=== PATIENT | male | born 1950 | race Caucasian/White ===

== ENCOUNTER 2022-02-19 12:30 | Outpatient (RCR) | payer MEDICARE, SELFPAY ==
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
--- NOTE | 2022-06-27 08:43 | HP.PT.NRP ---
KALYANI MCKENZIE was seen in my office for initial evaluation on 01/31/22. The following Plan of Care was established for this patient: Initial Frequency: 2-3x /Week Initial Duration: 4-6 Weeks Patient/Client Instruction: Educate patient on: Condition, Plan of Care, Risk Factors For the Purpose of:: To improve self management Therapeutic Exercise to Include: Strength training, Balance training, Body mechanics, Postural training, Flexibilty training, Gait and locomotor training, Neuromotor development, Dynamic Lumbar Stabilization For the Purpose of:: To decrease pain, To increase ROM, To improve muscle performance and motor function, To increase tolerance to activity/condition/position, To improve ability of physical actions for home/community/work/leisure, To improve gait and locomotor functions This patient was last seen in our office 02/21/22. Pertinent comments regarding their Physical therapy will appear below: This patient recently returned inquiring about getting a scooter assessement for his PCP Dr. Diana. His last PT visit was 02/21/22 so I am going to go ahead and discharge this chart and we will open up a new chart if further orders are received. At this point I will be discontinuing this patient from physical therapy. I would be happy to see this patient again in the future if found appropriate by the physician. Thank you! Paola Saul, PT, Cert MDT Balance/Gait/Functional tests - Balance/Special Test Scores Lower Extremity Functional Score: 39 TUG Test Time Seconds: 10.25 Tug Test: <20 sec.=mostly independent 30 Second Chair Rise Test Seconds: 11
== END 2022-02-19 19:00 | disposition home or self-care (01) ==
LOC: PT 12:30
PROVIDERS: PCP Family Medicine
DX: R27.0 Ataxia, unspecified (principal)
CPT/HCPCS: 97110; 97112; 97162; 97164; 97530

== ENCOUNTER 2022-07-07 11:59 | Outpatient (RCR) | payer MEDICARE, SELFPAY ==
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
--- NOTE | 2022-07-07 14:00 | HP.PTDCSUM ---
It has been my pleasure to treat KALYANI MCKENZIE referred by Dr. Timothy Diana MD, with the diagnosis of GAIT INSTABILITY, FREQUENT FALLS AND LUMBAR SPINAL STENOSIS for a total of 1 visit(s). Discharge Date: 07/07/22 Please see the following information for a summary of their discharge status. Goal 1:: SUCCESSFUL COMPLETION OF PT EVAL Plan: EVAL ONLY If there are questions or concerns regarding this patient's physical therapy, please feel free to call me at [phone]. Thank you for the referral of this patient. Sincerely, Paola Saul, PT, Cert MDT Balance/Gait/Functional tests - Balance/Special Test Scores Lower Extremity Functional Score: 21
== END 2022-07-07 19:00 | disposition home or self-care (01) ==
LOC: PT 11:59
PROVIDERS: PCP Family Medicine; Referring Provider Family Medicine; Visit Provider Family Medicine
DX: M48.061 Spinal stenosis, lumbar region without neurogenic claudication (principal); R26.81 Unsteadiness on feet; R29.6 Repeated falls
CPT/HCPCS: 97162

== ENCOUNTER 2022-10-31 14:00 | Outpatient (RCR) | payer MEDICARE, SELFPAY ==
--- NOTE | 2022-09-02 08:34 | HP.PTEVAL_ITS ---
Patient's Visit Information KALYANI MCKENZIE is a 72 year old M referred to Physical Therapy by JESSICA JUDD with a diagnosis of B foot drop, gait instability, lumbar radiculopathy and lumbar stenosis. Date of Evaluation: 08/29/22 Physical Therapist: Yuriy Slade DPT - Visit Plan Frequency: 2x /Week Duration: 6 Weeks Plan: Start with aquatic therapy: work on core and BLE strengthening. Progress balance and gait. He will need assistance in the pool initially, but can reduce if clinician warrants. May need use of lift chair for in and out, but can use stairs if able. - Subjective Pt. is here today for his initial evaluation with diagnosis of B foot drop, gait instability, lumbar radiculopathy (chronic) and lumbar spinal stenosis. Pt. reports having some back pain for many years which he relates to having issues when he broke his back when he was younger. He had an initial lumbar surgery ~2 years ago and was doing okay. He was doing some exercises and noticed his L leg was becoming weaker. He ultimately had another surgery in December of 2021. He again was doing better initially, but started to exercise again and his leg became weak again on the L side. Pt. has some intermittent pain in legs and lumbar spine when I over do it.' Pt. uses a wheel chair for a lot of his community mobility, but can walk with a rollator in home and short distances. He was doing a self silver [employer] exercise program, but stopped when he star berto to regress. He relates his leg weakness to using the nustep machine. He is sleeping well. His biggest concern at this point in time his marked weakness in his legs which limits his ability to complete his normal activities. He is still active and trys to get out a bit, but is limited due to his LE weakness. Pt. is hopeful to regain strength in BLEs. Pt. had an EMG, but is awaiting the results. - Pain Lumbar spine Pain Intensity (Out of 10): 1 - Objective POSTURE: Pt. has flexed sitting posture, is able to improved, but difficult to maintain. Standing posture is very guarded, heavily uses FWW for stability. PALPATION: Pt. has no pain with palpation to throughout BLEs and lumbar spine. NEURO: Pt. has diminished reflexes of BLEs of Achilles and patellar tendons. Pt. has decreased sensation in BLEs throughout. HE is unable to rise on heels or toes. ROM: Pt. has decent ROM of BLEs no issues. Limited lumbar ROM in all directions. No increase in pain with lumbar ROM, bust stiffness. MMT: RLE: ankle: DF 4#, PF 31#; knee: ext 27#, flexion 22#; hip: flexion: 12#, abd 8#. LLE: ankle: DF 0#, PF 11#; knee: ext 16#, flexion 8#; hip: flexion 3#, abd 2#. Core strength: poor-. Very difficult. GAIT: Pt. is able to ambulate a few short steps without AD, but had to use his trunk to assist with advancing LEs. Pt. ambulated with FWW with better stability, but still has marked weakness in his LE. Pt. has marked audible from reduced ankle eccentric DF. STAIRS: not trialed. - Balance/Special Test Scores Lower Extremity Functional Score: 18 - Goals Goal 1:: LTG: Pt. to be I with HEP. Goal Time Frame: 4-6 Weeks Goal 2:: LTG: Pt. to have increased BLE strength by at least 10# of all effected musculature. Goal Time Frame: 4-6 Weeks Goal 3:: STG: pt. to be able to ambulate throughout house with FWW with out assistance. Goal Time Frame: 2-4 Weeks Goal 4:: LTG: Pt. to ambulate with LRD MECCA community level distance. Goal Time Frame: 4-6 Weeks - Rehabilitation Potential Physical Therapy Diagnosis: Pt. has signs and symptoms consistent with B foot drop, gait instability, lumbar radiculopathy (chronic) and lumbar spinal stenosis. Pt has marked BLE weakness with L worse than R. This has drastically impacted his ability to stand and walk. He would benefit from PT to work on his strength, balance, and gait progression in order to get back to all ADLs with decreased limitations. Rehabilitation Potential: Fair - Anticipated Interventions Patient/Client Instruction: Educate patient on: Condition, Plan of Care, Risk Factors, Benefits of Fitness Program For the Purpose of:: To foster healthy habits, To improve decision making, To facilitate caregiver knowledge, To improve self management, To prevent re- injury, To improve ability to perform tasks related to life management, To improve tolerance to ADL's Therapeutic Exercise to Include: Strength training, Power training, Endurance training, Balance training, Postural training, Gait and locomotor training, In an aquatic setting, Dynamic Lumbar Stabilization For the Purpose of:: To increase ROM, To improve nutrient delivery to tissue, To increase oxygenation perfusion, To improve muscle performance and motor function, To improve ability to perform ADL's, To increase tolerance to activity/condition/position, To improve performance and independence with ADL's, To decrease level of supervision to perform tasks, To improve health of tissue, To increase flexibility/ROM Thank you for the opportunity to evaluate your patient. For Medicare and Medicare HMO plans, please review the plan of care and approve it. It will need to be FAXED BACK to us at [phone] for Medicare purposes. For Medicare only, by signing this I certify the plan of care. Please let me know if there are questions or concerns regarding this plan of care. Physician Signature: Date:
--- NOTE | 2022-10-14 08:04 | HP.PTREVAL_ITS ---
JESSICA JUDD, It has been my pleasure to treat KALYANI MCKENZIE over the last 9 visits for B foot drop, gait instability, lumbar radiculopathy and lumbar stenosis. Please see the progress note below for an update on the physical therapy plan of care! Subjective: Pt. reprots overall seeing some improvement. He reports having increased strength in BLEs, but not a large change in his mobility. He is still having weakness in his L leg, worst with ankle DF. Pt. reports minimal pain at this point in time, but is still having marked loss in functional mobility. He is using a Wheel chair for a good portion of mobility, FWW in home. He is being referred to a neurologist for further testing. Reports not being able to get into see one until december of next year. Objective/Function: MMT: RLE: ankle: DF 13.3#, PF 55.5#; knee: ext 51.4#, flexion 26.7#; hip: flexion 12.3#. LLE: ankle DF: 0/5; PF 44.4#; knee: ext 28.1#, flexion: 19.6#; hip: flexion 7.1#. Core strength: poor. Pt. is walking a little bit better, but is still having some trouble with advancing his LLE. He requires FWW for safety and is able to ambulate 108' today with SBA for safety. He does reports walking a little bit at home. He is still able to drive. ROM: fairly normal. Tight HS bilat. Transfers: pt. is able to complete from higher surfaces I, but from normal chair hieght, he struggles with stability, requires B hand assistance. Plan Plan: I am asking for further visits in aquatic setting. He has seen some changes in strength of BLEs and shows signs of further improvement. I would like his overall strength and functional mobility. Due to limited L ankle DF strength, me may benefit from an AFO to increase safety with gait. Balance/Gait/Functional tests - Balance/Special Test Scores Lower Extremity Functional Score: 20 Goals Goal 1:: LTG: Pt. to be I with HEP. Goal Time Frame: 4-6 Weeks Goal Progress: Progressing Goal 2:: LTG: Pt. to have increased BLE strength by at least 10# of all effected musculature. Goal Time Frame: 4-6 Weeks Goal Progress: Progressing Goal 3:: STG: pt. to be able to ambulate throughout house with FWW with out assistance. Goal Time Frame: 2-4 Weeks Goal Progress: Progressing Goal 4:: LTG: Pt. to ambulate with LRD MECCA community level distance. Goal Time Frame: 4-6 Weeks Goal Progress: Progressing Anticipated Interventions Patient/Client Instruction: Educate patient on: Condition, Plan of Care, Risk Factors, Benefits of Fitness Program For the Purpose of:: To foster healthy habits, To improve decision making, To facilitate caregiver knowledge, To improve self management, To prevent re- injury, To improve ability to perform tasks related to life management, To improve tolerance to ADL's Therapeutic Exercise to Include: Strength training, Power training, Endurance training, Balance training, Postural training, Gait and locomotor training, In an aquatic setting, Dynamic Lumbar Stabilization For the Purpose of:: To increase ROM, To improve nutrient delivery to tissue, To increase oxygenation perfusion, To improve muscle performance and motor function, To improve ability to perform ADL's, To increase tolerance to activity/condition/position, To improve performance and independence with ADL's, To decrease level of supervision to perform tasks, To improve health of tissue, To increase flexibility/ROM Please do not hesitate to contact me at [phone] by phone or if you have questions or concerns regarding this new plan of care! Sincerely, Yuriy Slade DPT
== END 2022-10-31 19:00 | disposition home or self-care (01) ==
LOC: PT 14:00
PROVIDERS: PCP Family Medicine
DX: M54.16 Radiculopathy, lumbar region (principal); M48.061 Spinal stenosis, lumbar region without neurogenic claudication; M21.371 Foot drop, right foot; R29.6 Repeated falls; G95.20 Unspecified cord compression
CPT/HCPCS: 97113; 97161; 97164

== ENCOUNTER 2022-11-15 13:16 | Inpatient (IN) | payer MEDICARE, SELFPAY ==
[2022-11-15] VITALS (9 sets, daily range): BP systolic 128–154; BP diastolic 85–99; PULSE 84–92; RESP 14–22; TEMP 36.6–36.9; O2SAT 92–97; BMI 35.9; BMI 35.8
--- NOTE | 2022-11-15 13:53 | EKG12_ITS ---
Test Reason : SOB Blood Pressure : / mmHG Vent. Rate : 088 BPM Atrial Rate : 088 BPM P-R Int : 214 ms QRS Dur : 090 ms QT Int : 356 ms P-R-T Axes : 011 -15 015 degrees QTc Int : 430 ms Sinus rhythm with 1st degree A-V block Inferior infarct , age undetermined Abnormal ECG Confirmed by JAMIE GIBSON, PEDRO LUIS ([id number]), purchase request editor SHERMAN TAMAYO ([id number]) on 11/17/2022 9:39:19 AM Referred By: BAKARI Confirmed By:PEDRO LUIS AYALA MD
--- NOTE | 2022-11-15 13:53 | RAD_ITS ---
INDICATION: cough EXAMINATION/TECHNIQUE: X-RAY - XR Chest 2 Views COMPARISON: CT dated October 30, 2017 FINDINGS: LINES/DEVICES: None. LUNGS: There are bilateral patchy opacities within the mid and lower lungs, most pronounced within the right lower lung. MEDIASTINUM AND CARDIOVASCULAR STRUCTURES: There is cardiomegaly. BONES AND SOFT TISSUES: Unremarkable. RAD/Chest PA and Lateral IMPRESSION: Bilateral patchy opacities, a nonspecific finding may be secondary to some combination of atelectasis, pneumonia and/or edema, recommend short interval follow-up in 10-[address] for further evaluation for a cannot exclude an underlying neoplastic process within the right lower lung. Electronically Signed: Nilam Luna MD at 15:04 EST ,
--- NOTE | 2022-11-15 14:26 | ED.VIS.DYS ---
HPI History of Present Illness Chief Complaint: Shortness of Breath Informant: patient Narrative Narrative: Patient is 72-year-old male with history of nonischemic cardiomyopathy, hypertension, blood clots on chronic Xarelto therapy, CKD, pulmonary fibrosis, obstructive sleep apnea on CPAP and diabetes mellitus presenting for cough. Patient states he has been having cough and worsening shortness of breath for the past week. He has been congested and having rhinorrhea and cough productive of yellow-green mucus. His thought she heard crackles on his right lung base. Patient states that he uses a walker and is minimally ambulatory at baseline but now can even make it 6 feet without being very short of breath. He denies any chest pain but notes he does get a little bit of chest discomfort when he is having to breathe a lot. He is felt more weak over the past few days. Patient had some URI symptoms and fever 2 weeks ago and thought he had the flu at that time. Those symptoms had resolved. He does have a history of pneumonia but states has never been hospitalized for his breathing. His notes he does have some minimal edema of his legs today. She is not sure how long its been there. Patient is chronic diarrhea which is unchanged. Denies any black or blood in his stool. No other complaints at this time. Patient does not wear supplemental oxygen. [facility] Medical History Blood clotting factor deficiency disorder Chronic kidney disease Essential (primary) hypertension Gastric ulcer Hiatal hernia History of pulmonary embolus (PE) LV non-compaction cardiomyopathy Nonischemic cardiomyopathy Obesity Obstructive sleep apnea Pulmonary fibrosis Type 2 diabetes mellitus Home Medications furosemide 40 mg tablet (Lasix) 40 mg PO QDAY #90 tabs 11/03/18 [Rx Last Taken Unknown] telmisartan 80 mg tablet 80 mg PO DAILY 11/03/19 [History Last Taken Unknown] semaglutide 1 mg/dose (2 mg/1.5 mL) subcutaneous pen injector 2 mg subcut TU 11/30/20 [History Last Taken Unknown] amlodipine 5 mg tablet 5 mg PO DAILY #90 tabs 05/26/22 [Rx Last Taken Unknown] dapagliflozin 10 mg tablet (Farxiga) 10 mg PO DAILY 05/26/22 [History Last Taken Unknown] gabapentin 600 mg tablet 600 mg PO TID 05/26/22 [History Last Taken Unknown] insulin degludec 100 unit/mL (3 mL) subcutaneous pen (Tresiba FlexTouch U-100 insulin) 16 unit subcut QHS 05/26/22 [History Last Taken Unknown] insulin lispro 100 unit/mL subcutaneous pen (Humalog KwikPen (U-100) Insulin) 9 unit subcut TIDCM 05/26/22 [History Last Taken Unknown] metoprolol succinate 50 mg tablet,extended release 24 hr (Toprol XL) 50 mg PO DAILY #90 tabs 05/26/22 [Rx Last Taken Unknown] rivaroxaban 10 mg tablet (Xarelto) 10 mg PO DAILY 05/26/22 [History Last Taken Unknown] insulin lispro 100 unit/mL subcutaneous pen See Protocol subcut TIDCM 11/15/22 [History Last Taken Unknown] Allergy/AdvReac Type Severity Reaction Status Date / Time Penicillins Allergy Unknown unknown Verified 11/15/22 13:17 coffee (Coffea arabica) Allergy vomiting Verified 11/15/22 13:17 Family History Father , age 72 Myocardial infarction CAD (coronary artery disease) Mother , age 73 Cancer Brother , age 27 from AAA Abdominal aortic aneurysm rupture Sister , 54 Breast cancer Surgical History History of laminectomy (12/2021) History of Filemon fundoplication History of open reduction and internal fixation (ORIF) procedure History of right and left heart catheterization (09/1997) Hx of cholecystectomy Social History Smoking Status: Never smoker ROS ROS ED Constitutional Constitutional ED: Denies chills or fever(s) Eyes Eyes: Denies change in vision ENT ENT ED: Reports rhinorrhea and other Details: Nasal congestion ; Denies sore throat Cardiovascular Cardiovascular: Denies chest pain or palpitations Respiratory/Chest Respiratory/Chest: Reports cough, dyspnea and dyspnea on exertion Gastrointestinal Gastrointestinal: Reports diarrhea; Denies abdominal pain, nausea or vomiting Genitourinary Genitourinary ED: Denies dysuria Musculoskeletal Musculoskeletal: Reports back pain; Denies arthralgias or myalgias Integumentary Denies rash Neurologic Neurologic: Reports weakness; Denies headache(s) or paresthesias Hematologic/Lymphatic Hematologic/Lymphatic: Reports easy bleeding and easy bruising EXAM Physical Exam Const Vital Signs: 11/15/22 13:17 11/15/22 14:11 11/15/22 14:11 Temperature 98.2 F 98.2 F Temperature Source Temporal Oral Pulse Rate 91 92 90 Respiratory Rate 16 18 16 Respiratory Effort Blood Pressure 149/97 H 149/97 H Blood Pressure Mean 114 114 Pulse Ox 97 92 94 Oxygen Delivery Method Room Air Room Air Room Air 11/15/22 14:11 Temperature Temperature Source Pulse Rate Respiratory Rate Respiratory Effort Short of Breath Blood Pressure Blood Pressure Mean Pulse Ox Oxygen Delivery Method Room Air Positive well nourished and well developed General Appearance ED: well developed and NAD HEENT Reports moist mucous membranes HEENT Narrative: Cerumen impaction of the right ear. Normal tympanic membrane on the left. Nasal congestion present. Normal oropharynx. atraumatic Eyes PERRL and EOMs intact bilaterally Neck supple and no JVD Resp Resp Narrative: Conversational dyspnea present. Diminished breath sounds at the bases with crackles appreciated on the right side. Diminished breath sounds more pronounced on the left. Cardio regular rate, regular rhythm and no murmurs GI non-tender and non-distended Extremity Extremity Narrative: 1+ pitting edema to the ankles Neuro oriented x3 Neuro Narrative: Generally weak, no focal deficits appreciated Sensorium / Orientation: alert Psych mental status grossly normal Thought Process: normal thought process Skin no wounds Lesions: no lesions Rashes: no rashes MDM MDM MDM Narrative Medical decision making narrative: Patient evaluated for increased weakness, shortness of breath and cough productive of sputum. Symptoms were preceded by flulike illness 2 weeks ago. Patient is conversational dyspnea but is in no acute distress upon initial evaluation. He has some mild peripheral edema but clinically does not appear fluid overloaded. Have a lower suspicion for CHF exacerbation. He is on chronic anticoagulation with Xarelto does have a low suspicion for PE/venous thromboembolism as a cause of his symptoms. Patient's symptoms do not seem like they are cardiogenic in nature. EKG obtained which does not show any ischemic changes. Do not think a troponin or further cardiac evaluation indicated at this time. CBC does show mild elevation of his immature granulocytes but his white blood cell count is normal. His BMP shows some baseline elevated creatinine but is otherwise stable. His BNP again is normal at 15.1. He is mildly hyperglycemic with a glucose of 208 however his anion gap is normal. Chest x-ray 2 views interpreted by myself as well as radiology shows bilateral patchy opacities. I suspect this is secondary to multifocal pneumonia. Patient's COVID/influenza swabs are negative. Patient desaturated to 88% when just trying to get out of bed. He does not have any home oxygen. He will be admitted for further treatment of multifocal pneumonia. Patient and spouse are agreeable this plan of care. He is given first dose of azithromycin and Rocephin in the ER. Lab Data Attestation: I reviewed the patient's lab results. Labs: Laboratory Results - last 24 hr 11/15/22 11/15/22 11/15/22 14:02 14:02 14:02 WBC 9.4 RBC 5.33 Hgb 15.5 Hct 48.0 MCV 90.1 MCH 29.1 MCHC 32.3 RDW Std Deviation 46.0 H RDW Coeff of Clay 14.1 Plt Count 304 MPV 9.4 Immature Gran % (Auto) 1.100 H Neut % (Auto) 74.0 H Lymph % (Auto) 14.7 L [place] % (Auto) 7.0 Eos % (Auto) 2.2 Baso % (Auto) 1.0 Absolute Neuts (auto) 7.0 Absolute Lymphs (auto) 1.38 Nucleated RBC % 0 Sodium 139 Potassium 4.1 Chloride 106 Carbon Dioxide 26.0 Anion Gap 7 BUN 23 H Creatinine 1.58 H Estim Creat Clear Calc 44.28 Est GFR (MDRD) Af Amer 56 L Est GFR (MDRD) Non-Af 46 L BUN/Creatinine Ratio 14.6 Glucose 208 H Calcium 9.1 B-Natriuretic Peptide 15.1 Radiography Diagnostic Testing: Clinical Impression(s) from Imaging Studies Chest X-Ray 11/15/22 13:53 IMPRESSION: Bilateral patchy opacities, a nonspecific finding may be secondary to some combination of atelectasis, pneumonia and/or edema, recommend short interval follow-up in 10-[address] for further evaluation for a cannot exclude an underlying neoplastic process within the right lower lung. Electronically Signed: Nilam Luna MD at 15:04 EST , Rhythm Strip Rhythm Strip: Sinus Rhythm Rate: 88 Ectopy: None EKG Initial EKG: Attestation: I personally reviewed and interpreted this EKG as follows: Interpretation: Sinus Rhythm Comments: Normal sinus rhythm at a rate of 88 bpm First-degree AV block with parable 214 Normal axis Normal QRS and QTc Normal ST segments Compared to prior EKG on 09/26/2010 patient has a new first-degree AV block Discharge Plan Triage Chief Complaint: Shortness of Breath ED Provider: Ayesha Boykin Dx/Rx/DC Orders Clinical Impression: Multifocal pneumonia, Dyspnea on exertion, Current use of skilled nursing anticoagulation Prescriptions: No Action furosemide [Lasix] 40 mg tablet 40 mg PO QDAY Qty: 90 3RF telmisartan 80 mg tablet 80 mg PO DAILY semaglutide 1 mg/dose (2 mg/1.5 mL) pen injector 2 mg SC TU gabapentin 600 mg tablet 600 mg PO TID Xarelto 10 mg tablet 10 mg PO DAILY Farxiga 10 mg tablet 10 mg PO DAILY Tresiba FlexTouch U-100 100 unit/mL (3 mL) insulin pen 16 unit subcut QHS insulin lispro [Humalog KwikPen Insulin] 100 unit/mL insulin pen 9 unit subcut TIDCM metoprolol succinate [Toprol XL] 50 mg tablet extended release 24 hr 50 mg PO DAILY Qty: 90 3RF amlodipine 5 mg tablet 5 mg PO DAILY Qty: 90 3RF insulin lispro 100 unit/mL insulin pen See Protocol SUBCUT TIDCM Protocol: 3. Sliding Scale Insulin Med Dosing Condition: 150-189 mg/dl = 1 unit Condition: 190-229 mg/dl = 2 units Condition: 230-269 mg/dl = 3 units Condition: 270-309 mg/dl = 4 units Condition: 310-349 mg/dl = 5 units Condition: 350-399 mg/dl = 6 units Condition: 400-449 mg/dl = 7 units Condition: Greater than 449 call physician Protocol Text: - Use for Total Daily Dose of Insulin 37-55 units - Obsese, infected, or steroid patients MEDIUM DOSING ALGORITHIM Label Comments: INJECT 9 UNITS SUBCUTANEOUSLY PLUS SLIDING SCALE WITH BREAKFAST AND 11 UNITS PLUS SLIDING SCALE WITH LUNCH AND SUPPER. MAX 60 UNITS PER DAY Primary Care Provider: Timothy Diana Referrals: Timothy Diana MD [Primary Care Provider] - Disposition Disposition: Acute Care Hospital [facility]
[2022-11-15 14:28] LABS: Absolute Lymphocyte Count 1.38 X10^3/uL (0.83-4.51); Basophil# 0.09 X10^3/uL; Eosinophil# 0.21 X10^3/uL; Eosinophils% 2.2 % (0-5); Hemoglobin 15.5 g/dL (13.0-16.5); Lymphocyte # 1.38 X10^3/ul (0.83-4.51); Lymphocyte % 14.7 % (19-41); Mean Corp Hgb Conc 32.3 g/dL (32-36); Mean Corpuscular Hgb 29.1 pg (27.0-32.0); Mean Corpuscular Volume 90.1 fL (80-94); Mean Platelet Vol. 9.4 fl (6.2-12.0); Monocyte# 0.66 X10^3/uL; NRBC Flagged by Analyzer 0 % (0-5); Neutrophil # 6.95 X10^3/uL (2.7-7.7); Platelet Count 304 K/mm3 (150-450); RBC Distribution Width CV 14.1 % (11.6-14.6); Red Blood Count 5.33 M/mm3 (4.6-6.2); White Blood Count 9.4 K/mm3 (4.4-11.0)
[2022-11-15 14:43] LABS: Anion Gap 7 (5-15); BUN 23 mg/dL (7-18); BUN/Creat Ratio 14.6 RATIO (10-20); Calcium,Total 9.1 mg/dL (8.5-10.1); Chloride 106 mmol/L (98-107); Creatinine, Serum 1.58 mg/dL (0.70-1.30); EST Glomerular Filtration Rate 46 mL/min (>60); Est Glom Filt Rate - Afr Amer 56 mL/min (>60); Estimated Creatinine Clearance 44.28 ml/min; Glucose 208 mg/dL (74-106); Potassium 4.1 mmol/L (3.5-5.1); Sodium Level 139 mmol/L (136-145)
[2022-11-15 14:44] LABS: BNP,B-Type NATRIURETIC PEPTIDE 15.1 pg/mL (0-100)
--- NOTE | 2022-11-15 15:37 | HP.PCM.HOS_ITS ---
HPI - General General Date of Admission: 11/15/22 Date of Service: 11/15/22 Chief Complaint: shortness of breath HPI Narrative KALYANI MCKENZIE, is a 72 M with a PMH as outlined who presents with a complaint of shortness of breath and a cough. His cough and loss of breath has been going on for about a week and has been gradually worsening. He had assisted rhinorrhea and a cough productive of what he tells me whitish sputum but according to ED he said he was yellowish-greenish sputum. Shortness of breath gets worse with exertion. He denies any dizziness or lightheadedness or palpitations. Patient's uses a walker at baseline but says now he is minimally ambulatory because he gets very short of breath with walking. He also has some mild pleuritic chest pain with coughing. He has gradually felt weaker and does not feel he is improving. He denies fever but admits to chills. He denies any nausea or vomiting or diarrhea and does admit to some mild edema in his lower extremities. He does not wear oxygen at home. Vital in the ED were blood pressure 154/99, pulse rate of 85 and respiratory rate of 14. His temperature was 98.5 and was saturating at 93% on room air. CBC was unremarkable and BMP was significant for creatinine of 1.58 which is lower than his recorded baseline of 1.66 from 2018. COVID and flu test were negative and chest x-ray showed bilateral patchy opacities concerning for pneumonia with recommendation for follow-up imaging on CT for further evaluation if underlying neoplastic process in the right lung cannot be excluded. [facility] Medical History Blood clotting factor deficiency disorder Chronic kidney disease Essential (primary) hypertension Gastric ulcer Hiatal hernia History of pulmonary embolus (PE) LV non-compaction cardiomyopathy Nonischemic cardiomyopathy Obesity Obstructive sleep apnea Pulmonary fibrosis Type 2 diabetes mellitus Home Medications furosemide 40 mg tablet (Lasix) 40 mg PO QDAY #90 tabs 11/03/18 [Rx Last Taken Unknown] telmisartan 80 mg tablet 80 mg PO DAILY 11/03/19 [History Last Taken Unknown] semaglutide 1 mg/dose (2 mg/1.5 mL) subcutaneous pen injector 2 mg subcut TU 11/30/20 [History Last Taken Unknown] amlodipine 5 mg tablet 5 mg PO DAILY #90 tabs 05/26/22 [Rx Last Taken Unknown] dapagliflozin 10 mg tablet (Farxiga) 10 mg PO DAILY 05/26/22 [History Last Taken Unknown] gabapentin 600 mg tablet 600 mg PO TID 05/26/22 [History Last Taken Unknown] insulin degludec 100 unit/mL (3 mL) subcutaneous pen (Tresiba FlexTouch U-100 insulin) 16 unit subcut QHS 05/26/22 [History Last Taken Unknown] insulin lispro 100 unit/mL subcutaneous pen (Humalog KwikPen (U-100) Insulin) 9 unit subcut TIDCM 05/26/22 [History Last Taken Unknown] metoprolol succinate 50 mg tablet,extended release 24 hr (Toprol XL) 50 mg PO DAILY #90 tabs 05/26/22 [Rx Last Taken Unknown] rivaroxaban 10 mg tablet (Xarelto) 10 mg PO DAILY 05/26/22 [History Last Taken Unknown] insulin lispro 100 unit/mL subcutaneous pen See Protocol subcut TIDCM 11/15/22 [History Last Taken Unknown] Allergy/AdvReac Type Severity Reaction Status Date / Time Penicillins Allergy Unknown unknown Verified 11/15/22 13:17 coffee (Coffea arabica) Allergy vomiting Verified 11/15/22 13:17 Family History Father , age 72 Myocardial infarction CAD (coronary artery disease) Mother , age 73 Cancer Brother , age 27 from AAA Abdominal aortic aneurysm rupture Sister , 54 Breast cancer Surgical History History of laminectomy (12/2021) History of Filemon fundoplication History of open reduction and internal fixation (ORIF) procedure History of right and left heart catheterization (09/1997) Hx of cholecystectomy Social History Smoking Status: Never smoker ROS Constitutional Constitutional: Reports chills, fatigue, malaise and weakness; Denies anorexia or fever(s) Eyes Eyes: Denies change in vision ENT HEENT: Reports nasal congestion and nasal discharge; Denies dysphagia, headache(s), sinus pressure or sore throat Cardiovascular Cardiovascular: Reports dyspnea on exertion and edema; Denies chest pain, lightheadedness, orthopnea, palpitations, paroxysmal nocturnal dyspnea, rapid heart rate or syncope Respiratory/Chest Respiratory/Chest: Reports cough, dyspnea, productive cough, shortness of breath at rest and shortness of breath with exertion; Denies excessive phlegm production, hemoptysis or wheezing Gastrointestinal Gastrointestinal: Denies abdominal pain, constipation, diarrhea, nausea or vomiting Genitourinary Genitourinary: Denies burning urination or dysuria Musculoskeletal Musculoskeletal: Denies arthralgias or back pain Neurologic Neurologic: Denies confusion, dizziness or focal weakness Psychiatric Psychiatric: Denies anxiety or depression Hematologic/Lymphatic Hematologic/Lymphatic: Denies anemia Vital Signs Vital Signs Vital Signs: 11/15/22 13:17 11/15/22 14:11 11/15/22 14:11 Temperature 98.2 F 98.2 F Temperature Source Temporal Oral Pulse Rate 91 92 90 Respiratory Rate 16 18 16 Respiratory Effort Blood Pressure 149/97 H 149/97 H Blood Pressure Mean 114 114 Pulse Ox 97 92 94 Oxygen Delivery Method Room Air Room Air Room Air 11/15/22 14:11 Temperature Temperature Source Pulse Rate Respiratory Rate Respiratory Effort Short of Breath Blood Pressure Blood Pressure Mean Pulse Ox Oxygen Delivery Method Room Air Weight Weight: 250 lb Body Mass Index (BMI) 35.9 Physical Exam Const alert, oriented x3 and no apparent distress General Appearance: cooperative HEENT normocephalic, head/scalp atraumatic, hearing grossly normal bilaterally and moist oral mucous membranes Mouth: oral and palatal mucosa normal Eyes PERRL, EOMs intact bilaterally and conjunctivae normal Neck no lymphadenopathy, supple and no JVD Resp Resp Narrative: mildly diminished breath sounds bibasally, no wheezes or crackles. On room air. Cardio regular rate, regular rhythm, S1 normal heart sound, S2 normal heart sound and no murmurs GI normal to inspection, nondistended, normoactive bowel sounds, soft to palpation, non-tender and non-distended Extremity normal to inspection, full ROM and no clubbing, cyanosis or edema Neuro oriented x3, CN's II-XII intact bilaterally, moves all extremities and no focal motor deficits Sensorium / Orientation: awake and alert Motor Exam: strength 5/5 throughout Psych affect normal Results Lab / Micro Data Result Diagrams: 11/15/22 14:02 11/15/22 14:02 Labs: Laboratory Results - last 24 hr 11/15/22 14:02: WBC 9.4, RBC 5.33, Hgb 15.5, Hct 48.0, MCV 90.1, MCH 29.1, MCHC 32.3, RDW Std Deviation 46.0 H, RDW Coeff of Clay 14.1, Plt Count 304, MPV 9.4, Immature Gran % (Auto) 1.100 H, Neut % (Auto) 74.0 H, Lymph % (Auto) 14.7 L, [place] % (Auto) 7.0, Eos % (Auto) 2.2, Baso % (Auto) 1.0, Absolute Neuts (auto) 7.0, Absolute Lymphs (auto) 1.38, Nucleated RBC % 0 11/15/22 14:02: Sodium 139, Potassium 4.1, Chloride 106, Carbon Dioxide 26.0, Anion Gap 7, BUN 23 H, Creatinine 1.58 H, Estim Creat Clear Calc 44.28, Est GFR (MDRD) Af Amer 56 L, Est GFR (MDRD) Non-Af 46 L, BUN/Creatinine Ratio 14.6, Glucose 208 H, Calcium 9.1 11/15/22 14:02: B-Natriuretic Peptide 15.1 Micro: Microbiology 11/15/22 14:15 Nasal Secretion SARS-CoV-2 & FLU Antigen (Rapid) - Final Rhythm Strip Rhythm Strip: Sinus Rhythm Rate: 88 Ectopy: None Radiology Impression Chest X-Ray 11/15/22 13:53 IMPRESSION: Bilateral patchy opacities, a nonspecific finding may be secondary to some combination of atelectasis, pneumonia and/or edema, recommend short interval follow-up in 10-[address] for further evaluation for a cannot exclude an underlying neoplastic process within the right lower lung. Electronically Signed: Nilam Luna MD at 15:04 EST , Assessment & Plan Assessment/Plan (1) Multifocal pneumonia: PLAN: Plan #Community acquired pneumonia * admit to med surg * CBC showed no leucocytosis * CXR showed bilateral patchy opacities, with recommended follow up imaging within 10-[address] for further evaluation of cannot exclude an underlying neoplastic process within the right lower lung. * check urine for strep and legionella * sputum culture * IV ceftriaxone and azithromycin * breathing treatment with bronchodilators * titrate oxygen as needed to maintain sats >90% * #Nonischemic cardiomyopathy #Benign essential hypertension: on amlodipine, metoprolol and telmisartan. #CKD stage 3a:Cr is around his baseline. Will monitor #Pulmonary fibrosis; stable. #History of clotting disorder: on xarelto #Type 2 diabetes mellitus with peripheral neuropathy * on dapagliflozin; on insulin degludec 16 units qhs. * also on semaglutide * ISS. Accuchecks ACHS * #GRANT: on CPAP qhs DVT prophylaxis; already on xarelto Code status: full code * Patient and counseled extensively about different types of CODE STATUS including full code, DNR CCA and DNR CCA. Patient elects to be full code. * Total [id number] time 17 minutes. Charges/Coding Visit Charges Inpatient E&M: 12307 Init Hosp L3 Procedures Hospitalists Procedures: 97627 Advncd Care Plan 30 Min
[2022-11-15] MEDS: Ceftriaxone 1 GM/50 mL Premix x1 IV (16:15)
[2022-11-15] MEDS: Insulin Lispro 100 UNIT/ML INSULN.PEN 9 UNIT SC (17:09)
[2022-11-15 17:41] LABS: Bedside Glucose 142 mg/dL (74-106)
[2022-11-15] MEDS: 0.9% Normal Saline 1,000 ML 125 ML IV (18:16)
[2022-11-15] MEDS: Ipratropium/Albuterol Sulfate 3 ML AMPUL.NEB INHALATION (19:26)
[2022-11-15] MEDS: Insulin Lispro 100 UNIT/ML INSULN.PEN SC (21:10)
[2022-11-15] MEDS: Insulin Glargine-YFGN 100 UNIT/ML Pen 16 UNIT SC (21:14)
[2022-11-15] MEDS: Gabapentin 600 MG Tablet PO (21:15)
[2022-11-15 21:26] LABS: Bedside Glucose 191 mg/dL (74-106)
[2022-11-16] VITALS (12 sets, daily range): BP systolic 129–131; BP diastolic 79–93; PULSE 79–91; RESP 16–22; TEMP 36.7–36.9; O2SAT 94–95
[2022-11-16] MEDS: 0.9% Normal Saline 1,000 ML 125 ML IV (02:26)
[2022-11-16 05:04] LABS: Absolute Lymphocyte Count 1.22 X10^3/uL (0.83-4.51); Basophil% 1.4 % (0-1); Eosinophil# 0.26 X10^3/uL; Eosinophils% 3.5 % (0-5); Hematocrit 45.1 % (40-54); Hemoglobin 14.4 g/dL (13.0-16.5); Lymphocyte # 1.22 X10^3/ul (0.83-4.51); Lymphocyte % 16.5 % (19-41); Mean Corp Hgb Conc 31.9 g/dL (32-36); Mean Corpuscular Hgb 28.9 pg (27.0-32.0); Mean Corpuscular Volume 90.4 fL (80-94); Mean Platelet Vol. 9.2 fl (6.2-12.0); Monocyte# 0.73 X10^3/uL; Monocyte% 9.9 % (0-10); NRBC Flagged by Analyzer 0 % (0-5); Neutrophil # 5.02 X10^3/uL (2.7-7.7); Platelet Count 260 K/mm3 (150-450); RBC Distribution Width CV 14.2 % (11.6-14.6); RBC Distribution Width SD 46.5 fl (35.1-43.9); Red Blood Count 4.99 M/mm3 (4.6-6.2); White Blood Count 7.4 K/mm3 (4.4-11.0)
[2022-11-16 05:25] LABS: Anion Gap 8 (5-15); BUN 22 mg/dL (7-18); BUN/Creat Ratio 16.4 RATIO (10-20); Calcium,Total 8.8 mg/dL (8.5-10.1); Chloride 107 mmol/L (98-107); Creatinine, Serum 1.34 mg/dL (0.70-1.30); EST Glomerular Filtration Rate 56 mL/min (>60); Est Glom Filt Rate - Afr Amer 68 mL/min (>60); Estimated Creatinine Clearance 52.21 ml/min; Glucose 150 mg/dL (74-106); Potassium 4.2 mmol/L (3.5-5.1); Sodium Level 140 mmol/L (136-145)
[2022-11-16] MEDS: Gabapentin 600 MG Tablet PO ×3 (06:59→21:48)
[2022-11-16] MEDS: Insulin Lispro 100 UNIT/ML INSULN.PEN SC ×3 (07:00→16:27)
[2022-11-16] MEDS: Ipratropium/Albuterol Sulfate 3 ML AMPUL.NEB INHALATION ×3 (07:00→19:14)
[2022-11-16] MEDS: Insulin Lispro 100 UNIT/ML INSULN.PEN 9 UNIT SC ×3 (07:00→16:25)
--- NOTE | 2022-11-16 07:34 | PN.HOSP_ITS ---
Objective Data Objective Data Vital Signs: Vital Signs Temp Pulse Resp BP Pulse Ox O2 Del Method 98.1 F 79 22 H 129/79 H 95 Room Air 11/16/22 02:32 11/16/22 02:32 11/16/22 02:33 11/16/22 02:32 11/16/22 02:33 11/16/22 02:33 Oxygen Delivery Method Room Air Weight: 249 lb 12.54 oz Body Mass Index (BMI) 35.8 Intake & Output: Intake and Output for Last 24 Hours 11/14/22 11/15/22 11/16/22 23:59 23:59 23:59 Intake Total 305 / 305 1000 / 1000 Balance 305 / 305 1000 / 1000 Lab / Micro Data Result Diagrams: 11/16/22 04:35 11/16/22 04:35 Labs: Laboratory Results - last 24 hr 11/15/22 14:02: WBC 9.4, RBC 5.33, Hgb 15.5, Hct 48.0, MCV 90.1, MCH 29.1, MCHC 32.3, RDW Std Deviation 46.0 H, RDW Coeff of Clay 14.1, Plt Count 304, MPV 9.4, Immature Gran % (Auto) 1.100 H, Neut % (Auto) 74.0 H, Lymph % (Auto) 14.7 L, Schley % (Auto) 7.0, Eos % (Auto) 2.2, Baso % (Auto) 1.0, Absolute Neuts (auto) 7.0, Absolute Lymphs (auto) 1.38, Nucleated RBC % 0 11/15/22 14:02: Sodium 139, Potassium 4.1, Chloride 106, Carbon Dioxide 26.0, Anion Gap 7, BUN 23 H, Creatinine 1.58 H, Estim Creat Clear Calc 44.28, Est GFR (MDRD) Af Amer 56 L, Est GFR (MDRD) Non-Af 46 L, BUN/Creatinine Ratio 14.6, Glucose 208 H, Calcium 9.1 11/15/22 14:02: B-Natriuretic Peptide 15.1 11/15/22 17:08: POC Glucose 142 H 11/15/22 21:04: POC Glucose 191 H 11/16/22 04:35: WBC 7.4, RBC 4.99, Hgb 14.4, Hct 45.1, MCV 90.4, MCH 28.9, MCHC 31.9 L, RDW Std Deviation 46.5 H, RDW Coeff of Clay 14.2, Plt Count 260, MPV 9.2, Immature Gran % (Auto) 0.700, Neut % (Auto) 68.0, Lymph % (Auto) 16.5 L, Schley % (Auto) 9.9, Eos % (Auto) 3.5, Baso % (Auto) 1.4 H, Absolute Neuts (auto) 5.0, Absolute Lymphs (auto) 1.22, Nucleated RBC % 0 11/16/22 04:35: Sodium 140, Potassium 4.2, Chloride 107, Carbon Dioxide 25.0, Anion Gap 8, BUN 22 H, Creatinine 1.34 H, Estim Creat Clear Calc 52.21, Est GFR (MDRD) Af Amer 68, Est GFR (MDRD) Non-Af 56 L, BUN/Creatinine Ratio 16.4, Glucose 150 H, Calcium 8.8 Micro: Microbiology 11/15/22 18:55 Urine, Clean Catch Legionella Antigen - Final 11/15/22 18:55 Urine, Clean Catch Streptococcus pneumoniae Antigen (M - Final 11/15/22 14:15 Nasal Secretion SARS-CoV-2 & FLU Antigen (Rapid) - Final Radiography Diagnostic Testing: Radiology Impression Chest X-Ray 11/15/22 13:53 IMPRESSION: Bilateral patchy opacities, a nonspecific finding may be secondary to some combination of atelectasis, pneumonia and/or edema, recommend short interval follow-up in 10-[address] for further evaluation for a cannot exclude an underlying neoplastic process within the right lower lung. Electronically Signed: Nilam Luna MD at 15:04 EST , Rhythm Strip Rhythm Strip: Sinus Rhythm Rate: 88 Ectopy: None Physical Exam Narrative Seen and examined. Detailed history taken. Patient denies history of smoking. Had one-time childhood pneumonia. About a year ago he has a chronic cough but denies chronic bronchitis/COPD or asthma or other chronic lung disease. History of nonischemic cardiomyopathy, EF 45% and follows Dr. Valenzuela. History of fever about 1 week ago and then progressive worsening of shortness of breath and productive cough of yellowish creamy sputum. No vomiting. Has history of 2 times DVT/PE and was on warfarin changed to Xarelto. 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 Patient denies prior history of COVID-19 and is not vaccinated. Physical exam General: Alert, Oriented x3, Cooperative, BMI 35.8 kg/m?, obesity grade 3. HEENT: Atraumatic, PERRLA, EOMI, Normocephalic Oral: No Gingival or Mucosal Lesions/ Ulcerations Neck: Supple, No JVD, Negative Carotid Bruits Lungs: Air entry diminished in bilateral lung bases. Bilateral coarse crepitations. Dyspnea on exertion. Cardiovascular: Regular rate, Regular Rhythm, Normal S1, Normal S2, No murmurs Abdomen: Bowel Sounds Present, Soft, Non Tender, Non-Distended : Denies burning micturition or acute LUTS. No renal angle tenderness. No suprapubic tenderness. Extremities: No edema, Capillary Refill Less than 3 Seconds Skin: No rashes, No breakdown Musculoskeletal: No Tenderness to Palpation of Joints or Extremities Neurological: Cranial nerves II-XII grossly intact, DTR 2+/4 and Symmetrical, Neuro grossly intact Psych/Mental Status: Normal Affect, Appropriate. Assessment & Plan Assessment/Plan (1) Multifocal pneumonia: PLAN: Plan This is 72-year-old male is admitted with shortness of breath and greenish- yellow productive cough for about a week with progressive worsening pleuritic chest pain on cough. Dyspnea on exertion, with minimal ambulation on walker. History of fever a week ago. #Bilateral community acquired pneumonia: Patient is admitted MedSurg floor. Chest x-ray individually reviewed and shows bilateral patchy opacities concerning for pneumonia. Recommended to follow-up imaging after 10 to [address] for further evaluation to exclude underlying neoplastic portions over right lung base * CBC showed no leucocytosis * Urinary antigens are negative for Streptococcus and Legionella. Flu and SARS-CoV-2 antigens are negative. * sputum culture ordered. * IV ceftriaxone and azithromycin, bronchodilator, incentive spirometry, PEP and Mucinex. * titrate oxygen as needed to maintain sats >90% #Nonischemic cardiomyopathy: Last echo in October 2020 reported EF 40-5 45 moderately decreased LV function and impaired diastolic filling. Global hypokinesis with minor regional variations: Patient follows in cardiology clinic with Dr. Valenzuela and Jt alvarez NP. On metoprolol and telmisartan. #Benign essential hypertension: on amlodipine, metoprolol and telmisartan. #CKD stage 3a:Cr is around his baseline. monitor kidney function #Pulmonary fibrosis; stable. #History of clotting disorder: on xarelto #Type 2 diabetes mellitus with peripheral neuropathy * on dapagliflozin; on insulin degludec 16 units qhs. * also on semaglutide * ISS. Accuchecks ACHS * Will call is reasonably controlled around 150 mg or less. #GRANT: on CPAP qhs DVT prophylaxis; already on xarelto Code status: full code * Patient and counseled extensively about different types of CODE STATUS including full code, DNR CCA and DNR CCA. Patient elects to be full code. Charges/Coding Visit Charges Inpatient E&M: 69684 Subs Hosp L2
[2022-11-16 07:35] LABS: Bedside Glucose 154 mg/dL (74-106)
[2022-11-16] MEDS: Ceftriaxone 1 GM/50 ML BAG IV (09:23)
[2022-11-16] MEDS: Metoprolol(XL)Succ 50 MG Tablet PO (09:29)
[2022-11-16] MEDS: Losartan Potassium 100 MG Tablet PO (09:30)
[2022-11-16] MEDS: Empagliflozin 25 MG Tablet PO (09:30)
[2022-11-16] MEDS: amLODIPine 5 MG Tablet PO (09:30)
[2022-11-16] MEDS: Furosemide 40 MG Tablet PO (09:30)
[2022-11-16] MEDS: guaiFENesin/D-Methorphan TAB.SR.12H 1 TABLET PO ×2 (10:13→21:50)
[2022-11-16 11:55] LABS: Bedside Glucose 209 mg/dL (74-106)
[2022-11-16] MEDS: Rivaroxaban 10 MG Tablet PO (16:27)
[2022-11-16 16:45] LABS: Bedside Glucose 172 mg/dL (74-106)
[2022-11-16] MEDS: Insulin Glargine-YFGN 100 UNIT/ML Pen 16 UNIT SC (21:48)
[2022-11-16 22:01] LABS: Bedside Glucose 144 mg/dL (74-106)
[2022-11-17] VITALS (14 sets, daily range): BP systolic 107–119; BP diastolic 70–74; PULSE 72–101; RESP 16–22; TEMP 36.6–37.1; O2SAT 84–99
[2022-11-17] MEDS: Gabapentin 600 MG Tablet PO ×2 (06:29→13:11)
[2022-11-17] MEDS: Ipratropium/Albuterol Sulfate 3 ML AMPUL.NEB INHALATION ×3 (07:15→15:00)
[2022-11-17 07:18] LABS: Anion Gap 10 (5-15); BUN 19 mg/dL (7-18); BUN/Creat Ratio 13.2 RATIO (10-20); Calcium,Total 9.2 mg/dL (8.5-10.1); Chloride 107 mmol/L (98-107); Creatinine, Serum 1.44 mg/dL (0.70-1.30); EST Glomerular Filtration Rate 51 mL/min (>60); Est Glom Filt Rate - Afr Amer 62 mL/min (>60); Estimated Creatinine Clearance 48.58 ml/min; Glucose 148 mg/dL (74-106); Potassium 4.1 mmol/L (3.5-5.1); Sodium Level 141 mmol/L (136-145)
[2022-11-17] MEDS: Insulin Lispro 100 UNIT/ML INSULN.PEN 9 UNIT SC ×2 (08:13→11:49)
[2022-11-17 08:25] LABS: Bedside Glucose 140 mg/dL (74-106)
[2022-11-17] MEDS: Ceftriaxone 1 GM/50 ML BAG IV (09:15)
[2022-11-17] MEDS: Losartan Potassium 100 MG Tablet PO (09:23)
[2022-11-17] MEDS: guaiFENesin/D-Methorphan TAB.SR.12H 1 TABLET PO (09:23)
[2022-11-17] MEDS: Metoprolol(XL)Succ 50 MG Tablet PO (09:24)
[2022-11-17] MEDS: amLODIPine 5 MG Tablet PO (09:24)
[2022-11-17] MEDS: Furosemide 40 MG Tablet PO (09:24)
[2022-11-17] MEDS: Empagliflozin 25 MG Tablet PO (09:25)
--- NOTE | 2022-11-17 11:00 | CASEMGMT ---
RN?CM?TURNING MACHINE OPERATOR?CM?to room to meet with patient for initial transition planning/care coordination?assessment.?RN?CM?introduced self and role at [facility].? Pt voices understanding and consents to?assessment?at this time.? Pt sitting up in chair in room in no distress at this time.? @ bedside. Pt is A/O at this time and answers all questions appropriately.?? Care providers, pharmacy, and demographics verified/updated at this time. PCP: Dr Diana Specialists:Dr Valenzuela-cardiology, RADIO PRESENTER Maria Isabel Watson-/endocrinology Preferred [facility]acy: [facility] Insurance:[employer] [facility] Prescription Benefit:?Yes Living Will/HPOA:?Has both LW and HCPOA, who is his , Gia [place]AC[place]: , Gia Living Arrangements: Lives w/ in ranch-style home w/3 steps to enter and stair lift. Mostly indep w/ADL's and manages his own medications. does assist w/pt getting in/out of tub/shower and w/LE dsg. manages home mgmt tasks. Transportation:?Pt and both drive. DME: ?[facility] has the following DME:?shower chair, RTS, stair lift, rails/grab bars, walker, CPAP thru [facility], [employer] glucose monitoring system--has all supplies and medication needed. Awaiting orthotics. Pt does not have home O2. Reviewed list of local DME co's and made aware [facility] is affiliated w/[facility]. He chooses [employer]. He states has a pulse ox @ home, but is not sure where it is. Pt states no need for further DME at this time.? HHC/SNF: [facility] 2010 and [facility] last year. Denies need for HHC. Pt states he was supposed to go camping in [place] x 3 weeks, and was actually supposed to be arriving there by tomorrow [facility]. He and still plan to go camping once he discharges from [facility]. He denies need for HHC, but states has done OP therapy @ [facility]. He is interested in getting a script for OP therapy to have in case he decides to do OP therapy after returning home [facility]. Pt wishes to return home and states has no concerns with going home at time of discharge.? CM?to follow for home oxygen needs and any further discharge planning/needs.? Pt voices no further concerns/needs at this time.? Advised pt to ask for?CM?if any further questions/concerns/needs arise.? Voices understanding. PLAN:??Home w/. Follow for possible need of home oxygen and pulse ox. Pt would like script for OP therapy. Court BSN?RN?CM
--- NOTE | 2022-11-17 11:10 | DCINST_ITS ---
Discharge Instructions Diet Discharge Diet: 1800 Calorie Control Diet Activity Discharge Activity: Return to Normal Activity Weight Bearing Status: Weight bearing as tolerated Dressing / Incision Call your doctor if you observe: Fever of 101 or Higher, Coldness, Increased Pain, Numbness or Tingling, Change in Color, Inability to urinate, Inability to have a bowel movement, Shortness of breath, Dizziness, Fainting spells, Swelling in the ankles, Chest pain, Prolonged hiccupping, Increased palpitations (irregular heartbeat) and Calf discomfort Follow Up Care When: IN 2 WEEKS Test Results: Test results from this visit will be discussed in further detail at your follow- up appointment, if applicable. Discharge Plan Admission Admit Date/Time: 11/15/22 15:52 Primary Reason for Your Visit: Committee acquired pneumonia Attending Provider: Kahlil David Primary Care Provider: Timothy Diana Consulting Providers: Carly Lo Discharge Orders/Prescriptions Prescriptions: New Mucinex DM 30-600 mg Tablet Extended Release 12 Hr 1 tab PO BID Qty: 14 0RF cefdinir 300 mg capsule 300 mg PO BID Qty: 14 0RF Continued furosemide [Lasix] 40 mg tablet 40 mg PO QDAY Qty: 90 3RF telmisartan 80 mg tablet 80 mg PO DAILY semaglutide 1 mg/dose (2 mg/1.5 mL) pen injector 2 mg SC TU gabapentin 600 mg tablet 600 mg PO TID Xarelto 10 mg tablet 10 mg PO DAILY Farxiga 10 mg tablet 10 mg PO DAILY Tresiba FlexTouch U-100 100 unit/mL (3 mL) insulin pen 16 unit subcut QHS insulin lispro [Humalog KwikPen Insulin] 100 unit/mL insulin pen 9 unit subcut TIDCM metoprolol succinate [Toprol XL] 50 mg tablet extended release 24 hr 50 mg PO DAILY Qty: 90 3RF amlodipine 5 mg tablet 5 mg PO DAILY Qty: 90 3RF insulin lispro 100 unit/mL insulin pen See Protocol SUBCUT TIDCM Protocol: 3. Sliding Scale Insulin Med Dosing Condition: 150-189 mg/dl = 1 unit Condition: 190-229 mg/dl = 2 units Condition: 230-269 mg/dl = 3 units Condition: 270-309 mg/dl = 4 units Condition: 310-349 mg/dl = 5 units Condition: 350-399 mg/dl = 6 units Condition: 400-449 mg/dl = 7 units Condition: Greater than 449 call physician Protocol Text: - Use for Total Daily Dose of Insulin 37-55 units - Obsese, infected, or steroid patients MEDIUM DOSING ALGORITHIM Label Comments: INJECT 9 UNITS SUBCUTANEOUSLY PLUS SLIDING SCALE WITH BREAKFAST AND 11 UNITS PLUS SLIDING SCALE WITH LUNCH AND SUPPER. MAX 60 UNITS PER DAY Referrals / Follow Up: Denis Rosenthal DO [Med Staff - Active Staff] - Within 1 Month (For follow-up CT scan after 12 weeks to see resolution of pneumonia and exclude underlying neoplasm over right lung base) Timothy Diana MD [Primary Care Provider] - Within 2 Weeks Disposition Disposition (needs filled in before D/C Order can be placed): Home, Self Care
[2022-11-17 11:36] LABS: Bedside Glucose 245 mg/dL (74-106)
[2022-11-17] MEDS: Insulin Lispro 100 UNIT/ML INSULN.PEN SC (11:50)
--- NOTE | 2022-11-17 15:36 | CHAPLAIN ---
Type of Pastoral Visit ___ Initial Visit ___ Follow-up Visit ___ On-call Visit ___ General Patient Visit ___ Spiritual Assessment ___ Family Conference ___ Bereavement ___ Rapid Response ___ Code Blue ___ Other (describe below) Pastoral Care Referral From ___ Patient ___ Family ___ Nurse ___ Physician ___ Animation Producer ___ Account Analyst ___ Other (describe below) Sacrament/Intervention ___ Active listening ___ Anointing ___ Pentecostalism ___ Bereavement ___ Communion ___ Yamilet exploration ___ ___ Life review ___ Prayer ___ Reconciliation ___ Sacrament of Sick ___ Supportive presence ___ Wedding ___ Other (describe below) Pastoral Comments two attempts made to visit patient and he was busy
--- NOTE | 2022-11-17 15:53 | CASEMGMT ---
Pt to dc today. Pt qualifies for home oxygen. Nurse to retest for liter flow needed. Green sheet on chart. RN CM in to pt room to make aware and provided pt with a rx for outpt PT and OT per request. Pt denies further needs.
--- NOTE | 2022-11-17 15:54 | DS.PCM_ITS ---
Providers Date of Admission: 11/15/22 Date of Discharge: 11/17/22 Primary Care Physician: Dr. Timothy Diana MD Reason For Visit: BILATERAL MULTIFOCAL PNEUMONIA Diagnosis Discharge Diagnosis (1) Multifocal pneumonia: Status: Acute Code(s): J18.9 - Pneumonia, unspecified organism Plan This is 72-year-old male is admitted with shortness of breath and greenish- yellow productive cough for about a week with progressive worsening pleuritic chest pain on cough. Dyspnea on exertion, with minimal ambulation on walker. History of fever a week ago. Patient denies history of smoking. Patient had one-time childhood pneumonia. About a year ago he has a chronic cough but denies chronic bronchitis/COPD or asthma or other chronic lung disease. History of nonischemic cardiomyopathy, EF 45% and follows Dr. Valenzuela. History of fever about 1 week ago and then progressive worsening of shortness of breath and productive cough of yellowish creamy sputum. No vomiting. Has history of 2 times DVT/PE and was on warfarin changed to Xarelto. 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 Patient denies prior history of COVID-19 and is not vaccinated. #Bilateral community acquired pneumonia: Patient is admitted MedSurg floor. Chest x-ray individually reviewed and shows bilateral patchy opacities concerning for pneumonia. Recommended to follow-up imaging after 10 [address] for further evaluation to exclude underlying neoplastic portions over right lung base * CBC showed no leucocytosis * Urinary antigens are negative for Streptococcus and Legionella. Flu and SARS-CoV-2 antigens are negative. * IV ceftriaxone and azithromycin, bronchodilator, incentive spirometry, PEP and Mucinex. * titrate oxygen as needed to maintain sats >90% 11/17: Shortness of breath at rest improved. Sputum culture shows normal respiratory collin.Patient drops pulse ox dropped on walking 84% on room air, 92% on 2 L of oxygen on ambulation. Patient is ambulatory in home and in the community and requires home oxygen with portability. Follow-up with Dr. Rosenthal as an outpatient for suspicion of right lung base underlying neoplastic process which might be pneumonic consolidation with follow-up CT scan after 3 months. Discharged on 7 more days of antibiotic cefdinir. #Nonischemic cardiomyopathy: Last echo in October 2020 reported EF 40-5 45 moderately decreased LV function and impaired diastolic filling. Global hypokinesis with minor regional variations: Patient follows in cardiology clinic with Dr. Valenzuela and Jt alvarez NP. On metoprolol and telmisartan. #Benign essential hypertension: on amlodipine, metoprolol and telmisartan. #CKD stage 3a:Cr is around his baseline. monitor kidney function #Pulmonary fibrosis; stable. #History of clotting disorder: on xarelto #Type 2 diabetes mellitus with peripheral neuropathy * on dapagliflozin; on insulin degludec 16 units qhs. * also on semaglutide * ISS. Accuchecks ACHS * Will call is reasonably controlled around 150 mg or less. #GRANT: on CPAP qhs DVT prophylaxis; already on xarelto Code status: full code * Patient and counseled extensively about different types of CODE STATUS including full code, DNR CCA and DNR CCA. Patient elects to be full code. Discharge medication reconciliation done. Discharge follow-up instructions completed. Discharge process discussed with the patient and all questions were answered to patient's satisfaction. Total time spent, exact 35 minutes on discharge meds reconciliation, examination, coordination of care with nurses and ancillary staff, review of imaging and blood test and discussion with the patient on follow-up instructions. Medications at Discharge Home Medications furosemide 40 mg tablet (Lasix) 40 mg PO QDAY #90 tabs 11/03/18 telmisartan 80 mg tablet 80 mg PO DAILY 11/03/19 semaglutide 1 mg/dose (2 mg/1.5 mL) subcutaneous pen injector 2 mg subcut TU 11/30/20 amlodipine 5 mg tablet 5 mg PO DAILY #90 tabs 05/26/22 dapagliflozin 10 mg tablet (Farxiga) 10 mg PO DAILY 05/26/22 gabapentin 600 mg tablet 600 mg PO TID 05/26/22 insulin degludec 100 unit/mL (3 mL) subcutaneous pen (Tresiba FlexTouch U-100 insulin) 16 unit subcut QHS 05/26/22 insulin lispro 100 unit/mL subcutaneous pen (Humalog KwikPen (U-100) Insulin) 9 unit subcut TIDCM 05/26/22 metoprolol succinate 50 mg tablet,extended release 24 hr (Toprol XL) 50 mg PO DAILY #90 tabs 05/26/22 rivaroxaban 10 mg tablet (Xarelto) 10 mg PO DAILY 05/26/22 insulin lispro 100 unit/mL subcutaneous pen See Protocol subcut TIDCM 11/15/22 cefdinir 300 mg capsule 300 mg PO BID #14 caps 11/17/22 dextromethorphan-guaifenesin 30 mg-600 mg tablet extended [id number] hr (Mucinex DM) 1 tab PO BID #14 tabs 11/17/22 Physical Exam Narrative Seen and examined. Shortness of breath improved at rest. Patient gets short of breath on exertion. Advised no driving for at least 1 week until shortness of breath resolved. [place] pulse oximetry done. Physical exam General: Alert, Oriented x3, Cooperative, BMI 35.8 kg/m?, obesity grade 3. HEENT: Atraumatic, PERRLA, EOMI, Normocephalic Oral: No Gingival or Mucosal Lesions/ Ulcerations Neck: Supple, No JVD, Negative Carotid Bruits Lungs: Air entry diminished in bilateral lung bases. Bilateral crepitations improved. Dyspnea on exertion. Cardiovascular: Regular rate, Regular Rhythm, Normal S1, Normal S2, No murmurs Abdomen: Bowel Sounds Present, Soft, Non Tender, Non-Distended : Denies burning micturition or acute LUTS. No renal angle tenderness. No suprapubic tenderness. Extremities: No edema, Capillary Refill Less than 3 Seconds Skin: No rashes, No breakdown Musculoskeletal: No Tenderness to Palpation of Joints or Extremities Neurological: Cranial nerves II-XII grossly intact, DTR 2+/4 and Symmetrical, Neuro grossly intact Psych/Mental Status: Normal Affect, Appropriate. Weight / BMI Weight Weight: 249 lb 12.54 oz Body Mass Index (BMI) 35.8 ABG / Lab / Microbiology Data Result Diagrams: 11/16/22 04:35 11/17/22 06:07 Laboratory: Laboratory Results - last 24 hr 11/16/22 16:25: POC Glucose 172 H 11/16/22 21:40: POC Glucose 144 H 11/17/22 06:07: Sodium 141, Potassium 4.1, Chloride 107, Carbon Dioxide 24.0, Anion Gap 10, BUN 19 H, Creatinine 1.44 H, Estim Creat Clear Calc 48.58, Est GFR (MDRD) Af Amer 62, Est GFR (MDRD) Non-Af 51 L, BUN/Creatinine Ratio 13.2, Glucose 148 H, Calcium 9.2 11/17/22 06:27: POC Glucose 140 H 11/17/22 11:16: POC Glucose 245 H Microbiology: Microbiology 11/16/22 20:16 Sputum, Expectorated/Coughed Gram Stain - Final 11/16/22 20:16 Sputum, Expectorated/Coughed Respiratory Culture - Preliminary Appears to be normal respiratory collin. Further studies to follow. 11/15/22 18:55 Urine, Clean Catch Legionella Antigen - Final 11/15/22 18:55 Urine, Clean Catch Streptococcus pneumoniae Antigen (M - Final 11/15/22 14:15 Nasal Secretion SARS-CoV-2 & FLU Antigen (Rapid) - Final D/C Instructions Discharge Diet: 1800 Calorie Control Diet Weight Bearing Status: Weight bearing as tolerated Call your doctor if you observe: Fever of 101 or Higher, Coldness, Increased Pain, Numbness or Tingling, Change in Color, Inability to urinate, Inability to have a bowel movement, Shortness of breath, Dizziness, Fainting spells, Swelling in the ankles, Chest pain, Prolonged hiccupping, Increased palpitations ( irregular heartbeat) and Calf discomfort When: IN 2 WEEKS Meaningful Use Info Meaningful Use Diagnoses (Choose all that apply): None applicable Discharge Plan Admission Admit Date/Time: 11/15/22 15:52 Primary Reason for Your Visit: Committee acquired pneumonia Attending Provider: Kahlil David Primary Care Provider: Timothy Diana Consulting Providers: Carly Lo Discharge Orders/Prescriptions Prescriptions: New Mucinex DM 30-600 mg Tablet Extended Release 12 Hr 1 tab PO BID Qty: 14 0RF cefdinir 300 mg capsule 300 mg PO BID Qty: 14 0RF Continued furosemide [Lasix] 40 mg tablet 40 mg PO QDAY Qty: 90 3RF telmisartan 80 mg tablet 80 mg PO DAILY semaglutide 1 mg/dose (2 mg/1.5 mL) pen injector 2 mg SC TU gabapentin 600 mg tablet 600 mg PO TID Xarelto 10 mg tablet 10 mg PO DAILY Farxiga 10 mg tablet 10 mg PO DAILY Tresiba FlexTouch U-100 100 unit/mL (3 mL) insulin pen 16 unit subcut QHS insulin lispro [Humalog KwikPen Insulin] 100 unit/mL insulin pen 9 unit subcut TIDCM metoprolol succinate [Toprol XL] 50 mg tablet extended release 24 hr 50 mg PO DAILY Qty: 90 3RF amlodipine 5 mg tablet 5 mg PO DAILY Qty: 90 3RF insulin lispro 100 unit/mL insulin pen See Protocol SUBCUT TIDCM Protocol: 3. Sliding Scale Insulin Med Dosing Condition: 150-189 mg/dl = 1 unit Condition: 190-229 mg/dl = 2 units Condition: 230-269 mg/dl = 3 units Condition: 270-309 mg/dl = 4 units Condition: 310-349 mg/dl = 5 units Condition: 350-399 mg/dl = 6 units Condition: 400-449 mg/dl = 7 units Condition: Greater than 449 call physician Protocol Text: - Use for Total Daily Dose of Insulin 37-55 units - Obsese, infected, or steroid patients MEDIUM DOSING ALGORITHIM Label Comments: INJECT 9 UNITS SUBCUTANEOUSLY PLUS SLIDING SCALE WITH BREAKFAST AND 11 UNITS PLUS SLIDING SCALE WITH LUNCH AND SUPPER. MAX 60 UNITS PER DAY Referrals / Follow Up: Denis Rosenthal DO [Med Staff - Active Staff] - Within 1 Month (For follow-up CT scan after 12 weeks to see resolution of pneumonia and exclude underlying neoplasm over right lung base) Timothy Diana MD [Primary Care Provider] - Within 2 Weeks Disposition Disposition (needs filled in before D/C Order can be placed): Home, Self Care Charges/Coding Visit Charges Inpatient E&M: 61951 Disch Hosp >30min
[2022-11-17 16:06] LABS: Bedside Glucose 121 mg/dL (74-106)
== END 2022-11-17 17:45 | disposition home or self-care (01) | DRG 194 ==
LOC: ED 15:53 → MS3 16:25
PROVIDERS: Admitting Provider Student in an Organized Health Care Education/Training Program; Emergency Provider Emergency Medicine; PCP Family Medicine; Visit Provider Internal Medicine
DX: J18.9 Pneumonia, unspecified organism (principal); I42.8 Other cardiomyopathies; E11.22 Type 2 diabetes mellitus with diabetic chronic kidney disease; Z79.4 Long term (current) use of insulin; N18.31 Chronic kidney disease, stage 3a; E11.65 Type 2 diabetes mellitus with hyperglycemia; E11.42 Type 2 diabetes mellitus with diabetic polyneuropathy; J84.10 Pulmonary fibrosis, unspecified; I12.9 Hypertensive chronic kidney disease with stage 1 through stage 4 chronic kidney disease, or unspecified chronic kidney disease; K52.9 Noninfective gastroenteritis and colitis, unspecified; G47.33 Obstructive sleep apnea (adult) (pediatric); Z66 Do not resuscitate; Z79.01 Long term (current) use of anticoagulants; Z68.35 Body mass index [BMI] 35.0-35.9, adult; E66.9 Obesity, unspecified; Z86.718 Personal history of other venous thrombosis and embolism; Z86.711 Personal history of pulmonary embolism; Z28.310 Unvaccinated for COVID-19
CPT/HCPCS: 36415; 71046; 80048; 82962; 83880; 85025; 87070; 87205; 87428; 87449; 93005; 94640; 94668; 97161; 97166; 99252; 99285; J7030; J7050; A4216; G0463; J0696

== ENCOUNTER 2022-11-30 18:36 | Inpatient (IN) | payer MEDICARE, SELFPAY ==
[2022-11-30 18:37] VITALS: BP 165/115; PULSE 85; RESP 22; TEMP 35.8; O2SAT 93; BMI 34.4
--- NOTE | 2022-11-30 19:03 | EKG12_ITS ---
Test Reason : SOB Blood Pressure : / mmHG Vent. Rate : 081 BPM Atrial Rate : 081 BPM P-R Int : 206 ms QRS Dur : 098 ms QT Int : 368 ms P-R-T Axes : 019 -09 022 degrees QTc Int : 427 ms Normal sinus rhythm Inferior infarct , age undetermined Anterior infarct , age undetermined Abnormal ECG Confirmed by JAMIE GIBSON, PEDRO LUIS ([id number]), telegraph editor SHERMAN TAMAYO ([id number]) on 12/01/2022 11:41:41 AM Referred By: Confirmed By:PEDRO LUIS AYALA MD
[2022-11-30 19:08] VITALS: O2SAT 97
[2022-11-30 19:22] LABS: Absolute Lymphocyte Count 1.71 X10^3/uL (0.83-4.51); Absolute Neutrophil Count 5.1 X10^3/uL (2.0-7.7); Basophil# 0.12 X10^3/uL; Basophil% 1.5 % (0-1); Eosinophil# 0.43 X10^3/uL; Eosinophils% 5.3 % (0-5); Hematocrit 48.4 % (40-54); Hemoglobin 15.6 g/dL (13.0-16.5); Lymphocyte # 1.71 X10^3/ul (0.83-4.51); Lymphocyte % 21.2 % (19-41); Mean Corp Hgb Conc 32.2 g/dL (32-36); Mean Corpuscular Hgb 29.3 pg (27.0-32.0); Monocyte# 0.65 X10^3/uL; Monocyte% 8.1 % (0-10); NRBC Flagged by Analyzer 0 % (0-5); Neutrophil # 5.09 X10^3/uL (2.7-7.7); Neutrophil % 63.2 % (47-70); Platelet Count 302 K/mm3 (150-450); RBC Distribution Width SD 49.5 fl (35.1-43.9); Red Blood Count 5.32 M/mm3 (4.6-6.2); White Blood Count 8.1 K/mm3 (4.4-11.0)
--- NOTE | 2022-11-30 19:29 | RAD_ITS ---
STUDY: X-RAY CHEST REASON FOR EXAM: Male, 72 years old. Shortness of breath and cough beginning yesterday. Diagnosed with pneumonia November 17. TECHNIQUE: PA and lateral views of the chest. COMPARISON: November 15, 2022. FINDINGS: Limited inspiratory effort. There is diffuse interstitial changes scattered patchy infiltrates throughout both lungs most marked of the left lung base. This appears essentially unchanged from previous study. There is no demonstrated pleural abnormality. The heart is enlarged. Normal mediastinum and skylar. Normal visualized pulmonary arteries. There is atherosclerotic calcification of the aortic arch with tortuosity. The thoracic spine is obscured by the mediastinum. Normal visualized ribs, clavicles, and shoulders. There is no demonstrated abnormality of the visualized soft tissue structures of the upper abdomen. RAD/Chest PA and Lateral IMPRESSION: Bilateral patchy pulmonary infiltrates and cardiomegaly unchanged from the earlier study. Electronically Signed: Wilbur Anderson DO at 19:52 EST ,
[2022-11-30 19:39] LABS: Anion Gap 7 (5-15); BUN 23 mg/dL (7-18); BUN/Creat Ratio 14.5 RATIO (10-20); Calcium,Total 9.6 mg/dL (8.5-10.1); Chloride 105 mmol/L (98-107); Creatinine, Serum 1.59 mg/dL (0.70-1.30); EST Glomerular Filtration Rate 46 mL/min (>60); Est Glom Filt Rate - Afr Amer 55 mL/min (>60); Glucose 203 mg/dL (74-106); Potassium 4.2 mmol/L (3.5-5.1); Sodium Level 138 mmol/L (136-145); Troponin-I HS 6 pg/mL (3.0-78.0)
[2022-11-30 20:09] LABS: BNP,B-Type NATRIURETIC PEPTIDE 20.8 pg/mL (0-100)
[2022-11-30 20:29] VITALS: O2SAT 95
--- NOTE | 2022-11-30 20:51 | CT_ITS ---
EXAM: CT ANGIOGRAPHY CHEST WITHOUT AND WITH INTRAVENOUS CONTRAST CLINICAL INDICATION: cocnern for PE TECHNIQUE: Helically acquired angiography images were obtained of the chest without and with intravenous contrast. This CT exam was performed using one or more of the following dose reduction techniques: automated exposure control, adjustment of the mA and/or kV according to patient size, and/or use of iterative reconstruction technique. This report was created using [employer] report generation technology. MIP reconstructed images were created and reviewed. CONTRAST: 100 cc of Isovue-370 IV. RADIATION DOSE: CTDIvol = 24.54 mGy, DLP = 579.03 mGy-cm. COMPARISON: CT scan of the chest 10/30/2017. FINDINGS: PULMONARY ARTERIES: Unremarkable. Normal in caliber. No evidence of pulmonary embolism. AORTA: Unremarkable. Normal in caliber. No evidence of dissection. GREAT VESSELS OF AORTIC ARCH: Unremarkable. Normal in caliber. No evidence of dissection. LUNGS AND PLEURAL SPACES: Extensive peripheral fibrosis with traction bronchiectasis and mild honeycombing. This has significantly increased compared with the previous exam No mass. No pleural effusion or thickening. No pneumothorax. HEART: Coronary artery calcifications. No pericardial effusion. No signs of right heart strain, ratio of right ventricle to left ventricle measures less than 1. MEDIASTINUM: Small hiatal hernia. No mediastinal or hilar adenopathy. Esophagus is unremarkable. THYROID: Unremarkable. No thyroid lesions. BONES/JOINTS: Unremarkable. No suspicious lytic or blastic abnormality. CT/CTA Chest W/WO Contrast IMPRESSION: 1. Pulmonary fibrosis increased since previous exam. 2. No pulmonary embolism or dissection. 3. Small hiatal hernia. 4. Coronary artery disease. Electronically Signed: Garfield Bullard MD at 22:32 EST ,
--- NOTE | 2022-11-30 20:51 | EX.ED.DYSGE1 ---
HPI <RYNE Anglin - Last Filed: 11/30/22 21:01> History of Present Illness Chief Complaint: Shortness of Breath Narrative Narrative: Patient is a 72-year-old male with history of pulmonary embolus on Eliquis, hypertension, obesity, diabetes who presents to the emergency department for worsening shortness of breath. Patient was admitted to the hospital for multifocal pneumonia on November 17, 2022. He was then discharged, placed on 1 week of cefdinir and drove down to [place] to bath. He was feeling better, he finished his cefdinir however over the last 3 to 4 days he has gotten much more dyspneic. Patient states he is unable to do his daily activities and he saw his pulse ox going to 66%. He does wear 2 L of oxygen since being discharged in the hospital. He denies any recent fever or chills PFS <RYNE Anglin - Last Filed: 11/30/22 21:01> [facility] Medical History Blood clotting factor deficiency disorder Chronic kidney disease Current use of residential anticoagulation Essential (primary) hypertension Gastric ulcer Hiatal hernia History of pulmonary embolus (PE) LV non-compaction cardiomyopathy Multifocal pneumonia Nonischemic cardiomyopathy Obesity Obstructive sleep apnea Pulmonary fibrosis Type 2 diabetes mellitus Home Medications furosemide 40 mg tablet (Lasix) 40 mg PO QDAY #90 tabs 11/03/18 [Rx Last Taken Unknown] telmisartan 80 mg tablet 80 mg PO DAILY 11/03/19 [History Last Taken Unknown] semaglutide 1 mg/dose (2 mg/1.5 mL) subcutaneous pen injector 2 mg subcut TU 11/30/20 [History Last Taken Unknown] amlodipine 5 mg tablet 5 mg PO DAILY #90 tabs 05/26/22 [Rx Last Taken Unknown] dapagliflozin 10 mg tablet (Farxiga) 10 mg PO DAILY 05/26/22 [History Last Taken Unknown] gabapentin 600 mg tablet 600 mg PO TID 05/26/22 [History Last Taken Unknown] insulin degludec 100 unit/mL (3 mL) subcutaneous pen (Tresiba FlexTouch U-100 insulin) 16 unit subcut QHS 05/26/22 [History Last Taken Unknown] insulin lispro 100 unit/mL subcutaneous pen (Humalog KwikPen (U-100) Insulin) 9 unit subcut TIDCM 05/26/22 [History Last Taken Unknown] metoprolol succinate 50 mg tablet,extended release 24 hr (Toprol XL) 50 mg PO DAILY #90 tabs 05/26/22 [Rx Last Taken Unknown] rivaroxaban 10 mg tablet (Xarelto) 10 mg PO DAILY 05/26/22 [History Last Taken Unknown] insulin lispro 100 unit/mL subcutaneous pen See Protocol subcut TIDCM 11/15/22 [History Last Taken Unknown] cefdinir 300 mg capsule 300 mg PO BID #14 caps 11/17/22 [Rx Last Taken Unknown] dextromethorphan-guaifenesin 30 mg-600 mg tablet extended [id number] hr (Mucinex DM) 1 tab PO BID #14 tabs 11/17/22 [Rx Last Taken Unknown] Allergy/AdvReac Type Severity Reaction Status Date / Time Penicillins Allergy Unknown unknown Verified 11/30/22 18:39 coffee (Coffea arabica) Allergy vomiting Verified 11/30/22 18:39 Family History Father , age 72 Myocardial infarction CAD (coronary artery disease) Mother , age 73 Cancer Brother , age 27 from AAA Abdominal aortic aneurysm rupture Sister , 54 Breast cancer Surgical History History of laminectomy (12/2021) History of Filemon fundoplication History of open reduction and internal fixation (ORIF) procedure History of right and left heart catheterization (09/1997) Hx of cholecystectomy Social History Smoking Status: Never smoker ROS <RYNE Anglin - Last Filed: 11/30/22 21:01> ROS ED ROS Narrative Constitutional: Negative for fever, chills, weight loss. Positive for generalized weakness Eyes: Negative for vision loss, vision change, double vision ENT: Negative for any sore throat, ear pain, congestion Cardiovascular: Negative for any chest pain, tightness, palpitations Respiratory: Negative for any cough, sputum production, hemoptysis, orthopnea. Positive dyspnea, dyspnea on exertion Gastrointestinal: Negative for any abdominal pain, nausea, vomiting, diarrhea, constipation, blood in stool, blood in vomit : Negative for any urinary frequency, dysuria, retention, blood in urine Muscle skeletal: Negative for any muscle joint pain, stiffness, myalgias, arthralgias, neck pain, back pain Neurological: Negative for any headache, syncope, numbness or tingling, dizziness Skin: Negative for any rashes, lumps, itching, abrasions, lacerations Psychiatric: Negative for any depression, anxiety, stress, suicidal ideation, homicidal ideation Hematologic: Negative for any easy bruising, excessive bruising, easy bleeding Allergies: Negative for any eczema, hives, rash EXAM <RYNE Anglin - Last Filed: 11/30/22 21:01> Physical Exam Narrative Exam Narrative: Vital signs reviewed. Patient at rest is 95% on 2 L. HEET: Head normocephalic atraumatic, TMs clear bilaterally. Posterior pharynx is clear, moist mucous membranes. Nares clear bilaterally. Neck: Supple with no lymphadenopathy or tenderness. No signs of meningismus, negative jolt sign. Cardiac: Regular rate and rhythm no murmurs gallops or rubs, equal peripheral pulses bilaterally. Respiratory: patient has diffuse crackles throughout pulmonary exam, left lower lobe rales. No chest tenderness. Abdomen: Soft, nontender, nondistended. No abdominal bruit or pulsatile masses. No hepatosplenomegaly Extremities: No peripheral edema, no signs of gross trauma or deformity. Active full range of motion of all extremities. Neuro: Cranial nerves II through XII intact, no focal neurological deficits. Skin: Clean dry and intact with no rash, purpura, petechiae, vesicles or pustules. Backs/flank: No CVA tenderness, no midline spinal tenderness, no deformity. Psych: Normal mood and affect. No SI, HI or acute psychosis. Const Vital Signs: 11/30/22 18:37 11/30/22 19:08 Temperature 96.5 F L Temperature Source Temporal Pulse Rate 85 Respiratory Rate 22 H Respiratory Effort Short of Breath Blood Pressure 165/115 H Blood Pressure Mean 131 Pulse Ox 93 Oxygen Delivery Method Nasal Cannula Nasal Cannula Oxygen Flow Rate (L/min) 2 2 Positive well nourished and well developed General Appearance ED: well developed <Dr. Danilo Prescott DO - Last Filed: 11/30/22 22:16> Physical Exam Const Vital Signs: 11/30/22 18:37 11/30/22 19:08 Temperature 96.5 F L Temperature Source Temporal Pulse Rate 85 Respiratory Rate 22 H Respiratory Effort Short of Breath Blood Pressure 165/115 H Blood Pressure Mean 131 Pulse Ox 93 Oxygen Delivery Method Nasal Cannula Nasal Cannula Oxygen Flow Rate (L/min) 2 2 MDM <RYNE Anglin - Last Filed: 11/30/22 21:01> MDM Lab Data Labs: Laboratory Results - last 24 hr 11/30/22 11/30/22 11/30/22 19:16 19:16 19:16 WBC 8.1 RBC 5.32 Hgb 15.6 Hct 48.4 MCV 91.0 MCH 29.3 MCHC 32.2 RDW Std Deviation 49.5 H RDW Coeff of Clay 15.0 H Plt Count 302 MPV 9.0 Immature Gran % (Auto) 0.700 Neut % (Auto) 63.2 Lymph % (Auto) 21.2 Crook % (Auto) 8.1 Eos % (Auto) 5.3 H Baso % (Auto) 1.5 H Absolute Neuts (auto) 5.1 Absolute Lymphs (auto) 1.71 Nucleated RBC % 0 Sodium 138 Potassium 4.2 Chloride 105 Carbon Dioxide 26.0 Anion Gap 7 BUN 23 H Creatinine 1.59 H Estim Creat Clear Calc 44.00 Est GFR (MDRD) Af Amer 55 L Est GFR (MDRD) Non-Af 46 L BUN/Creatinine Ratio 14.5 Glucose 203 H Calcium 9.6 Troponin I High Sens 6 B-Natriuretic Peptide 20.8 Radiography Diagnostic Testing: Clinical Impression(s) from Imaging Studies Chest X-Ray 11/30/22 19:29 IMPRESSION: Bilateral patchy pulmonary infiltrates and cardiomegaly unchanged from the earlier study. Electronically Signed: Wilbur Anderson DO at 19:52 EST Reading Location ID and State: [address] [place] [address] Tel [phone], Service support , Treatment and Re-Evaluation Narrative: All radiologic examinations were read, reviewed by the emergency department attending. From these reads, a plan of care will be put in place. Patient appears to be in no respiratory distress at rest on his 2 L, patient presents to the emergency department with complaints of increased shortness of breath on his 2 L of oxygen after being treated for pneumonia. Patient did receive some basic laboratory values. Patient CBC is unremarkable and unchanged since 11/16/2022. Patient's chemistries show increase in renal insufficiency with a BUN of 23, creatinine 1.59. However this does appear baseline looking the patient's laboratory values since 2018. Patient did receive chest x-ray, this showed bilateral patchy pulmonary filtrates and cardiomegaly unchanged previous study. Secondary to the patient's pneumonia, increase shortness of breath, patient was started on IV Zithromax, IV Rocephin, doxycycline was ordered originally however they are out of the medication at the hospital. Patient did try to ambulate, just getting up and moving around the bed, the patient dropped to 86% on his 2 L. At this time, the patient does not believe he can go home and he needs to be admitted the hospital. I did speak with the hospitalist, secondary to the patient's history of pulmonary embolus, being on Xarelto, and the long car ride, the patient will receive a CTA of the chest to rule out any pulmonary embolism. Patient is agreeable with the plan to be admitted. He understands he may need to go to rehab facility to get stronger. Patient and his are given instructions, information and verbally understand the importance. <Dr. Danilo Prescott, DO - Last Filed: 11/30/22 22:16> MDM MDM Narrative Medical decision making narrative: Interventions / MDM: Differential diagnosis:Pneumonia, bronchitis, pulmonary fibrosis Diagnosis considered but do not suspect: Pulmonary embolism however on Xarelto and being compliant My EKG interpretation: N/A Imaging independently reviewed and interpreted by myself: Chest x-ray persistent bilateral infiltrates External documents reviewed: N/A Test considered but not ordered:N/A ED course: Attending note: Patient seen and evaluated with data integrity consultant. I perform my own [id number] evaluation. I agree with the plan of work-up.Worsening dyspnea over the past couple days. Hospitalized for couple days to the end of last month finished his antibiotics for bilateral pneumonia. He was sent home on oxygen. He went to [place] symptoms reoccurred for the past 2 days now symptomatic with short walks he is on Xarelto for history of PEs and has been compliant. No fevers. Work-up persistent pneumonia on chest x-ray Labs are stable, upon ambulation significant shortness of breath and hypoxia on his 2 L he is improved with rest. He is covered with IV antibiotics. Of note called back during Rocephin administration considering increasing dyspnea, there is no swelling he was placed on a nonrebreather due to mouth breathing with improvement. Hospitalist was present, we will plan on continued infusion of Rocephin with monitoring. Admitted to the hospital for further management.CTA chest ordered per hospitalist request which is pending. Re-evaluation: stable Disposition discussed with patient/family/significant other: Patient and significant other Case discussed with consulting clinician: Hospitalist Lab Data Attestation: I reviewed the patient's lab results. Labs: Laboratory Results - last 24 hr 11/30/22 11/30/22 11/30/22 19:16 19:16 19:16 WBC 8.1 RBC 5.32 Hgb 15.6 Hct 48.4 MCV 91.0 MCH 29.3 MCHC 32.2 RDW Std Deviation 49.5 H RDW Coeff of Clay 15.0 H Plt Count 302 MPV 9.0 Immature Gran % (Auto) 0.700 Neut % (Auto) 63.2 Lymph % (Auto) 21.2 Crook % (Auto) 8.1 Eos % (Auto) 5.3 H Baso % (Auto) 1.5 H Absolute Neuts (auto) 5.1 Absolute Lymphs (auto) 1.71 Nucleated RBC % 0 Sodium 138 Potassium 4.2 Chloride 105 Carbon Dioxide 26.0 Anion Gap 7 BUN 23 H Creatinine 1.59 H Estim Creat Clear Calc 44.00 Est GFR (MDRD) Af Amer 55 L Est GFR (MDRD) Non-Af 46 L BUN/Creatinine Ratio 14.5 Glucose 203 H Calcium 9.6 Troponin I High Sens 6 B-Natriuretic Peptide 20.8 Radiography Diagnostic Testing: Clinical Impression(s) from Imaging Studies Chest X-Ray 11/30/22 19:29 IMPRESSION: Bilateral patchy pulmonary infiltrates and cardiomegaly unchanged from the earlier study. Electronically Signed: Wilbur Anderson DO at 19:52 EST Reading Location ID and State: [address] [place] [address] Tel [phone], Service support , Discharge Plan Dx/Rx/DC Orders Clinical Impression: Bilateral pulmonary infiltrates on chest x-ray, Hypoxia, Adult failure to thrive, Pulmonary fibrosis Disposition Disposition: Acute Care Hospital [facility]
--- NOTE | 2022-11-30 20:58 | HP.PCM.HOS_ITS ---
[facility] - General General Date of Admission: 11/30/22 Date of Service: 11/30/22 Chief Complaint: Dyspnea on exertion HPI Narrative KALYANI MCKENZIE, is a 72 M with a significant history of hypertension; CKD; for sleep apnea on CPAP/BiPAP; and pulmonary fibrosis who presents emergency department with progressively worsening shortness of breath. Of note patient was admitted to the hospital recently discharged on 11/17/2022. He reported that after discharge he went on a camping at [place]. About 4 days after discharge patient saw improvement. However his shortness of breath came back reportedly with a vengeance. On the day of presentation reportedly his oxygen tank was off and he noticed that his oxygen saturation went to 62%. At the emergency department after ambulation patient oxygen saturation dropped to 86% on his 2 L nasal cannula oxygen that was started with his recent admission to the hospital. At the emergency department patient went into coughing fit and thought that he could not breathe. [facility] Medical History Blood clotting factor deficiency disorder Chronic kidney disease Current use of [facility] anticoagulation Essential (primary) hypertension Gastric ulcer Hiatal hernia History of pulmonary embolus (PE) LV non-compaction cardiomyopathy Multifocal pneumonia Nonischemic cardiomyopathy Obesity Obstructive sleep apnea Pulmonary fibrosis Type 2 diabetes mellitus Home Medications furosemide 40 mg tablet (Lasix) 40 mg PO QDAY #90 tabs 11/03/18 [Rx Last Taken Unknown] telmisartan 80 mg tablet 80 mg PO DAILY 11/03/19 [History Last Taken Unknown] semaglutide 1 mg/dose (2 mg/1.5 mL) subcutaneous pen injector 2 mg subcut TU 11/30/20 [History Last Taken Unknown] amlodipine 5 mg tablet 5 mg PO DAILY #90 tabs 05/26/22 [Rx Last Taken Unknown] dapagliflozin 10 mg tablet (Farxiga) 10 mg PO DAILY 05/26/22 [History Last Taken Unknown] gabapentin 600 mg tablet 600 mg PO TID 05/26/22 [History Last Taken Unknown] insulin degludec 100 unit/mL (3 mL) subcutaneous pen (Tresiba FlexTouch U-100 insulin) 16 unit subcut QHS 05/26/22 [History Last Taken Unknown] insulin lispro 100 unit/mL subcutaneous pen (Humalog KwikPen (U-100) Insulin) 9 unit subcut TIDCM 05/26/22 [History Last Taken Unknown] metoprolol succinate 50 mg tablet,extended release 24 hr (Toprol XL) 50 mg PO DAILY #90 tabs 05/26/22 [Rx Last Taken Unknown] rivaroxaban 10 mg tablet (Xarelto) 10 mg PO DAILY 05/26/22 [History Last Taken Unknown] insulin lispro 100 unit/mL subcutaneous pen See Protocol subcut TIDCM 11/15/22 [History Last Taken Unknown] dextromethorphan-guaifenesin 30 mg-600 mg tablet extended hr (Mucinex DM) 1 tab PO BID #14 tabs 11/17/22 [Rx Last Taken Unknown] Allergy/AdvReac Type Severity Reaction Status Date / Time Penicillins Allergy Unknown unknown Verified 11/30/22 18:39 coffee (Coffea arabica) Allergy vomiting Verified 11/30/22 18:39 Family History Father , age 72 Myocardial infarction CAD (coronary artery disease) Mother , age 73 Cancer Brother , age 27 from AAA Abdominal aortic aneurysm rupture Sister , 54 Breast cancer Surgical History History of laminectomy (12/2021) History of Filemon fundoplication History of open reduction and internal fixation (ORIF) procedure History of right and left heart catheterization (09/1997) Hx of cholecystectomy Social History Smoking Status: Never smoker ROS ROS Narrative Pertinent positives and pertinent negatives as noted in HPI. All other systems were reviewed and are negative Vital Signs Vital Signs Vital Signs: 11/30/22 18:37 11/30/22 19:08 Temperature 96.5 F L Temperature Source Temporal Pulse Rate 85 Respiratory Rate 22 H Respiratory Effort Short of Breath Blood Pressure 165/115 H Blood Pressure Mean 131 Pulse Ox 93 Oxygen Delivery Method Nasal Cannula Nasal Cannula Oxygen Flow Rate (L/min) 2 2 Weight Weight: 108.862 kg Body Mass Index (BMI) 34.4 Physical Exam Narrative Physical exam: General: Well-nourished, well-developed. Head: Normocephalic, atraumatic, no tenderness Eyes: Vision is grossly intact. EOMI ENT, no trauma, moist mucous membranes, no rhinorrhea Neck: Nontender, No thyromegaly. CVS: Regular rate and rhythm. S1-S2 present. No murmur, gallop or rub. Respiratory : Conversational dyspnea. Tachypnea. Diffuse Rales Abdomen: Soft, nontender, nondistended, normal bowel sounds, no masses : Deferred Back: Nontender, no CVA tenderness. Extremities: Nontender full range of motion, no trauma Skin: Normal color, no trauma, abrasions Neuro: Alert, oriented, cranial nerves II through XII grossly intact. Psychiatry: Normal mood. Normal affect. Not depressed. Not anxious. Results Lab / Micro Data Result Diagrams: 11/30/22 19:16 11/30/22 19:16 Labs: Laboratory Results - last 24 hr 11/30/22 19:16: WBC 8.1, RBC 5.32, Hgb 15.6, Hct 48.4, MCV 91.0, MCH 29.3, MCHC 32.2, RDW Std Deviation 49.5 H, RDW Coeff of Clay 15.0 H, Plt Count 302, MPV 9.0, Immature Gran % (Auto) 0.700, Neut % (Auto) 63.2, Lymph % (Auto) 21.2, [place] % (Auto) 8.1, Eos % (Auto) 5.3 H, Baso % (Auto) 1.5 H, Absolute Neuts (auto) 5.1, Absolute Lymphs (auto) 1.71, Nucleated RBC % 0 11/30/22 19:16: Sodium 138, Potassium 4.2, Chloride 105, Carbon Dioxide 26.0, Anion Gap 7, BUN 23 H, Creatinine 1.59 H, Estim Creat Clear Calc 44.00, Est GFR (MDRD) Af Amer 55 L, Est GFR (MDRD) Non-Af 46 L, BUN/Creatinine Ratio 14.5, Glucose 203 H, Calcium 9.6, Troponin I High Sens 6 11/30/22 19:16: B-Natriuretic Peptide 20.8 Micro: Microbiology 11/30/22 19:12 Nasal Secretion SARS-CoV-2 & FLU Antigen (Rapid) - Final Radiology Impression Chest X-Ray 11/30/22 19:29 IMPRESSION: Bilateral patchy pulmonary infiltrates and cardiomegaly unchanged from the earlier study. Electronically Signed: Wilbur Anderson DO at 19:52 EST Reading Location ID and State: [address] [place] [address] Tel [phone], Service support , Assessment & Plan Assessment/Plan (1) Chronic respiratory failure: (2) Pulmonary fibrosis: PLAN: Plan Pulmonary Fibrosis Worsening Etiology unclear. Antibiotics given at the emergency department. We will hold off further antibiotic at this time. Rapid influenza and COVID-19 antigen negative. We will check a procalcitonin. Solu-Medrol 60 mg IV push x1 ordered. CTA chest ordered at the emergency department, showed pulmonary fibrosis. CTA chest was independently interpreted and I agree with the interpretation. Check Legionella urine and subsequent pneumonia urine antigen. CBC showed normal white count of 8.1. Trend. Diabetes mellitus Patient with hyperglycemia on presentation Home hypoglycemic regimen continued. Home basal insulin continued. Monitor Accu-Cheks Correction scale insulin ordered. History of PE/history of clotting disorder Xarelto continued DVT prophylaxis: Xarelto continued. Charges/Coding Visit Charges Inpatient E&M: 33088 Init Hosp L3
[2022-11-30 21:06] VITALS: BP 125/83; PULSE 86; PULSE 87; RESP 19; RESP 22; TEMP 36.4; O2SAT 95; O2SAT 98
[2022-11-30] MEDS: Ceftriaxone 1 GM/50 ML BAG IV (21:18)
--- NOTE | 2022-11-30 21:39 | ED.RN ---
RN notified that patient is having a hard time breathing. RN entered patients room where he was hyperventilating. SpO2 on monitor showed 86% with a good wave form. Patient stated he can't breathing, chest pressure. This RN stopped IV antibiotic Rocephin and assessed patients airway. Patients stated his tongue looked more swollen than usual. Patient continued stating he could not breathe. This RN hit staff assist. Dr. Prescott at beside assessing patient. Dr. Prescott requested patient be put on non-rebreather. Dr. Prescott stated he does not think this is an allergic reaction to Rocephin. Patient had received Rocephin during his last admission to hospital. No new orders at this time. Per Dr. Prescott, Rocephin can be restarted. will continue to monitor patient
[2022-11-30 21:50] LABS: Procalcitonin 0.17 ng/mL (0.00-0.09)
[2022-11-30 22:32] VITALS: BP 130/95; PULSE 90; RESP 26; TEMP 36.6; O2SAT 100
[2022-11-30 22:54] VITALS: BMI 34.0
[2022-11-30 23:03] VITALS: BP 147/98; PULSE 88; RESP 22; TEMP 36.1; O2SAT 100
[2022-11-30 23:35] LABS: Bedside Glucose 186 mg/dL (74-106)
[2022-11-30] MEDS: 0.9% Saline Lock 10 ML Syringe IV (23:39)
[2022-11-30] MEDS: Furosemide 40 MG/4 ML Vial IV (23:39)
[2022-11-30] MEDS: Insulin Lispro 100 UNIT/ML INSULN.PEN SC (23:40)
[2022-11-30] MEDS: Gabapentin 600 MG Tablet PO (23:40)
[2022-12-01] VITALS (9 sets, daily range): BP systolic 104–140; BP diastolic 68–96; PULSE 82–97; RESP 16–20; TEMP 36.4–36.7; O2SAT 92–96
[2022-12-01] MEDS: Insulin Glargine-YFGN 100 UNIT/ML Pen 16 UNIT SC ×2 (00:34→21:20)
[2022-12-01] MEDS: guaiFENesin/D-Methorphan TAB.SR.12H 1 TABLET PO ×3 (00:35→21:19)
[2022-12-01] MEDS: MethylPREDNISolone 125 MG/2 ML Vial 60 MG IV (00:59)
[2022-12-01] MEDS: 0.9% Saline Lock 10 ML Syringe IV ×2 (05:10→13:21)
[2022-12-01] MEDS: Gabapentin 600 MG Tablet PO ×3 (05:11→21:28)
[2022-12-01 06:22] LABS: Absolute Lymphocyte Count 1.05 X10^3/uL (0.83-4.51); Basophil# 0.09 X10^3/uL; Basophil% 1.1 % (0-1); Eosinophil# 0.09 X10^3/uL; Eosinophils% 1.1 % (0-5); Hematocrit 47.5 % (40-54); Hemoglobin 15.3 g/dL (13.0-16.5); Lymphocyte # 1.05 X10^3/ul (0.83-4.51); Lymphocyte % 12.3 % (19-41); Mean Corp Hgb Conc 32.2 g/dL (32-36); Mean Corpuscular Hgb 29.1 pg (27.0-32.0); Mean Corpuscular Volume 90.3 fL (80-94); Mean Platelet Vol. 9.5 fl (6.2-12.0); Monocyte# 0.29 X10^3/uL; Monocyte% 3.4 % (0-10); NRBC Flagged by Analyzer 0 % (0-5); Neutrophil # 6.95 X10^3/uL (2.7-7.7); Neutrophil % 81.4 % (47-70); Platelet Count 293 K/mm3 (150-450); RBC Distribution Width CV 14.9 % (11.6-14.6); RBC Distribution Width SD 49.1 fl (35.1-43.9); Red Blood Count 5.26 M/mm3 (4.6-6.2); White Blood Count 8.5 K/mm3 (4.4-11.0)
[2022-12-01 06:53] LABS: Anion Gap 7 (5-15); BUN 24 mg/dL (7-18); BUN/Creat Ratio 16.1 RATIO (10-20); Calcium,Total 9.3 mg/dL (8.5-10.1); Chloride 105 mmol/L (98-107); Creatinine, Serum 1.49 mg/dL (0.70-1.30); EST Glomerular Filtration Rate 49 mL/min (>60); Est Glom Filt Rate - Afr Amer 60 mL/min (>60); Estimated Creatinine Clearance 46.95 ml/min; Glucose 197 mg/dL (74-106); Potassium 4.5 mmol/L (3.5-5.1); Sodium Level 136 mmol/L (136-145)
[2022-12-01 07:10] LABS: Bedside Glucose 220 mg/dL (74-106)
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
[2022-12-01] MEDS: Empagliflozin 25 MG Tablet PO (09:10)
[2022-12-01] MEDS: Insulin Lispro 100 UNIT/ML INSULN.PEN 6 UNIT SC ×3 (09:10→16:59)
[2022-12-01] MEDS: Losartan Potassium 100 MG Tablet PO (09:10)
[2022-12-01] MEDS: Metoprolol(XL)Succ 50 MG Tablet PO (09:10)
[2022-12-01] MEDS: amLODIPine 5 MG Tablet PO (09:10)
[2022-12-01] MEDS: Furosemide 40 MG Tablet PO (09:10)
[2022-12-01] MEDS: Rivaroxaban 10 MG Tablet PO (09:11)
[2022-12-01] MEDS: Insulin Lispro 100 UNIT/ML INSULN.PEN SC ×4 (09:11→21:19)
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
[2022-12-01 12:30] LABS: Bedside Glucose 285 mg/dL (74-106)
--- NOTE | 2022-12-01 15:11 | CHAPLAIN ---
Type of Pastoral Visit _x__ Initial Visit ___ Follow-up Visit ___ On-call Visit ___ General Patient Visit ___ Spiritual Assessment ___ Family Conference ___ Bereavement ___ Rapid Response ___ Code Blue ___ Other (describe below) Pastoral Care Referral From _x__ Patient ___ Family ___ Nurse ___ Physician ___ Material Inspector ___ Fire Prevention Forester ___ Other (describe below) Sacrament/Intervention _x__ Active listening ___ Anointing ___ Denominational ___ Bereavement ___ Communion ___ Yamilet exploration ___ _x__ Life review _x__ Prayer ___ Reconciliation ___ Sacrament of Sick ___ Supportive presence ___ Wedding ___ Other (describe below) Pastoral Comments patient is eating lunch and a friend is with him; pt states that he has been looking for the user support analyst to visit; pt says that he has had health issues recently and has desire to get well again; pt goal is to have medical team figure out cause of his breathing issues and to address it; pt states that he is a L[employer] and would like a prayer
[2022-12-01 17:20] LABS: Bedside Glucose 253 mg/dL (74-106)
[2022-12-01] MEDS: Ceftriaxone 1 GM/50 ML BAG IV (18:20)
[2022-12-01] MEDS: Doxycycline 100 MG CAPSULE PO (21:28)
[2022-12-02] VITALS (9 sets, daily range): BP systolic 122–136; BP diastolic 78–102; PULSE 62–92; RESP 16–20; TEMP 36.3–36.7; O2SAT 92–95
[2022-12-02 01:15] LABS: Bedside Glucose 325 mg/dL (74-106)
[2022-12-02] MEDS: 0.9% Saline Lock 10 ML Syringe IV ×4 (06:29→20:31)
[2022-12-02] MEDS: Gabapentin 600 MG Tablet PO ×3 (06:29→20:32)
[2022-12-02] MEDS: Insulin Lispro 100 UNIT/ML INSULN.PEN 6 UNIT SC ×2 (06:32→10:59)
[2022-12-02] MEDS: Insulin Lispro 100 UNIT/ML INSULN.PEN SC ×4 (06:33→20:32)
[2022-12-02 06:47] LABS: Absolute Neutrophil Count 10.7 X10^3/uL (2.0-7.7); Basophil# 0.02 X10^3/uL; Basophil% 0.2 % (0-1); Hematocrit 45.4 % (40-54); Hemoglobin 14.7 g/dL (13.0-16.5); Lymphocyte % 7.5 % (19-41); Mean Corp Hgb Conc 32.4 g/dL (32-36); Mean Corpuscular Hgb 28.8 pg (27.0-32.0); Mean Platelet Vol. 9.2 fl (6.2-12.0); Monocyte# 0.19 X10^3/uL; Monocyte% 1.6 % (0-10); NRBC Flagged by Analyzer 0 % (0-5); Neutrophil # 10.72 X10^3/uL (2.7-7.7); Neutrophil % 89.8 % (47-70); Platelet Count 304 K/mm3 (150-450); RBC Distribution Width CV 14.6 % (11.6-14.6); RBC Distribution Width SD 47.3 fl (35.1-43.9); White Blood Count 11.9 K/mm3 (4.4-11.0)
[2022-12-02 07:00] LABS: Bedside Glucose 258 mg/dL (74-106)
[2022-12-02 07:18] LABS: Anion Gap 10 (5-15); BUN 47 mg/dL (7-18); BUN/Creat Ratio 24.6 RATIO (10-20); Calcium,Total 9.2 mg/dL (8.5-10.1); Chloride 101 mmol/L (98-107); Creatinine, Serum 1.91 mg/dL (0.70-1.30); EST Glomerular Filtration Rate 37 mL/min (>60); Est Glom Filt Rate - Afr Amer 45 mL/min (>60); Estimated Creatinine Clearance 36.63 ml/min; Glucose 238 mg/dL (74-106); Potassium 4.5 mmol/L (3.5-5.1); Sodium Level 135 mmol/L (136-145)
--- NOTE | 2022-12-02 08:43 | PN.CC_ITS ---
Assessment & Plan Assessment/Plan (1) Hypoxia: (2) Pulmonary fibrosis: PLAN: Plan RECOMMENDATIONS: 1. Await sputum culture 2. Continue empiric antibiotics pending culture 3. Agree with systemic steroids. Keep at current dosing until improvement 4. Outpatient autoimmune work-up 5. Agree with diuresis as tolerated 6. Wean oxygen as tolerated. 7. Walking oximetry prior to discharge IMPRESSIONS: 1. Acute hypoxic respiratory insufficiency Clinical suspicion for both an acute and chronic component of current pre sentation. Patient does have fibrotic changes with significant bronchiectasis noted on CT scan of the chest. Patient does have purulent sputum and culture is currently pending. Continue with systemic steroids and antibiotics for now. Patient is anticoagulated, so PE is unlikely. Patient will need a walking oximetry prior to discharge. High clinical suspicion the patient will need substantially more oxygen with ambulation as patient is at risk for elevated pulmonary artery pressures. Echocardiogram was last checked in 2020, but patient has risk factors for both type II and type III pulmonary hypertension. Patient would benefit from diuresis. Could consider repeating echocardiogram on ce patient is euvolemic. Low clinical suspicion for PE, but bronchiectasis exacerbation would be a consideration. Patient definitely has fibrotic changes of the chest and this will need to be worked up as an outpatient. High clinical suspicion patient will require supplemental oxygen moving forward 2. Diabetes mellitus Patient is on basal insulin at baseline. Clinical suspicion that this will have to be increased given the need for systemic steroids. Will watch closely. 3. Chronic pain syndrome/history of PE/advanced age/acute on chronic com bined CHF/CKD Complicates care, management, recovery and prognosis. Patient with decr eased mobility at baseline secondary to back issues. This likely allows him to underestimate his pulmonary course. Would be beneficial to see the CAT scan from 2018. Previous echocardiograms were unable to quantify pulmonary artery pressures, but pulmonary hypertension would be a concern. Patient reports compliance with Xarelto. Could consider transition from Xarelto to Eliquis given his chronic kidney disease, but defer to primary service. Subjective Subjective Patient did okay overnight. Patient continues to have dyspnea associated with paroxysmal coughing. Patient has not reported any change in sputum. Patient was able to walk around his bed, but is hoping to walk in the hallway later today. Objective Data Objective Data Vital Signs: Vital Signs Temp Pulse Resp BP Pulse Ox O2 Del Method O2 Flow Rate 36.6 C 86 16 136/85 H 92 Nasal Cannula 2 12/02/22 06:38 12/02/22 06:38 12/02/22 06:38 12/02/22 06:38 12/02/22 07:33 12/02/22 07:33 12/02/22 07:33 Oxygen Flow Rate (L/min) 2 Oxygen Delivery Method Nasal Cannula Weight: 107.4 kg Body Mass Index (BMI) 34.0 Intake & Output: Intake and Output for Last 24 Hours 11/30/22 12/01/22 12/02/22 23:59 23:59 23:59 Intake Total 50.00 / 50.00 1145 / 1145 200 / 200 Output Total 875 / 875 525 / 525 Balance 50.00 / -350.00 270 / 270 -325 / -325 Lab / Micro Data Attestation: I reviewed the patient's lab results. Result Diagrams: 12/02/22 06:26 12/02/22 06:26 Labs: Laboratory Results - last 24 hr 12/01/22 12:10: POC Glucose 285 H 12/01/22 16:57: POC Glucose 253 H 12/01/22 21:10: POC Glucose 325 H 12/02/22 06:26: WBC 11.9 H, RBC 5.10, Hgb 14.7, Hct 45.4, MCV 89.0, MCH 28.8, MCHC 32.4, RDW Std Deviation 47.3 H, RDW Coeff of Clay 14.6, Plt Count 304, MPV 9.2, Immature Gran % (Auto) 0.900, Neut % (Auto) 89.8 H, Lymph % (Auto) 7.5 L, [place] % (Auto) 1.6, Eos % (Auto) 0.0, Baso % (Auto) 0.2, Absolute Neuts (auto) 10.7 H, Absolute Lymphs (auto) 0.90, Nucleated RBC % 0 12/02/22 06:26: Sodium 135 L, Potassium 4.5, Chloride 101, Carbon Dioxide 24.0, Anion Gap 10, BUN 47 H, Creatinine 1.91 H, Estim Creat Clear Calc 36.63, Est GFR (MDRD) Af Amer 45 L, Est GFR (MDRD) Non-Af 37 L, BUN/Creatinine Ratio 24.6 H, Glucose 238 H, Calcium 9.2 02/14/23 06:27: POC Glucose 258 H Micro: Microbiology 12/01/22 21:25 Interface Orders Gram Stain - Preliminary 11/30/22 23:20 Urine, Clean Catch Legionella Antigen - Final 11/30/22 23:20 Urine, Clean Catch Streptococcus pneumoniae Antigen (M - Final 11/30/22 19:12 Nasal Secretion SARS-CoV-2 & FLU Antigen (Rapid) - Final Physical Exam Const alert and oriented x3 General Appearance: cooperative, well developed and in distress Positive for mild HEENT normocephalic, head/scalp atraumatic and moist oral mucous membranes Eyes PERRL, EOMs intact bilaterally and conjunctivae normal Eyes Narrative: Glasses in place Neck full ROM and no lymphadenopathy Chest inspection of chest normal Resp Effort and Inspection: actively coughing productive (Thick yellow sputum) Auscultation: rales diffuse; Negative for rhonchi or wheezes Percussion: Negative for dullness Cardio regular rate, regular rhythm, S1 normal heart sound, S2 normal heart sound, no murmurs, no rub and no gallops GI normal to inspection, nondistended, normoactive bowel sounds no CVA tenderness Extremity Extremity Narrative: Thenar atrophy noted bilaterally General Extremity: clubbing; Negative for edema Skin no rashes or lesions noted Neuro oriented x3 and CN's II-XII intact bilaterally Neuro Narrative: Weakness of the left lower extremity noted Psych cooperative and affect normal Charges/Coding Visit Charges Inpatient E&M: 70977 Subs Hosp L2
[2022-12-02] MEDS: Doxycycline 100 MG CAPSULE PO ×2 (10:46→20:32)
[2022-12-02] MEDS: Losartan Potassium 100 MG Tablet PO (10:46)
[2022-12-02] MEDS: Empagliflozin 25 MG Tablet PO (10:46)
[2022-12-02] MEDS: amLODIPine 5 MG Tablet PO (10:46)
[2022-12-02] MEDS: Furosemide 40 MG Tablet PO (10:46)
[2022-12-02] MEDS: Metoprolol(XL)Succ 50 MG Tablet PO (10:46)
[2022-12-02] MEDS: Rivaroxaban 10 MG Tablet PO (10:46)
[2022-12-02] MEDS: guaiFENesin/D-Methorphan TAB.SR.12H 1 TABLET PO ×2 (10:46→20:32)
[2022-12-02] MEDS: Ceftriaxone 1 GM/50 ML BAG IV (10:47)
[2022-12-02 11:40] LABS: Bedside Glucose 263 mg/dL (74-106)
--- NOTE | 2022-12-02 15:32 | PN.HOSP_ITS ---
Reason for Visit Reason for Visit: Diagnoses Pulmonary fibrosis, unspecified (11/30/22) Chronic respiratory failure, unspecified whether with hypoxia or hypercapnia (11/30/22) Hypoxemia (11/30/22) Subjective Subjective Follow-up for shortness of breath, dyspnea, and pulmonary fibrosis Objective Data Objective Data Vital Signs: Vital Signs Temp Pulse Resp BP Pulse Ox O2 Del Method O2 Flow Rate 97.4 F L 92 18 127/78 H 94 Nasal Cannula 2 12/02/22 12:00 12/02/22 12:00 12/02/22 12:00 12/02/22 12:00 12/02/22 12:31 12/02/22 12:00 12/02/22 12:31 Oxygen Flow Rate (L/min) 2 Oxygen Delivery Method Nasal Cannula Weight: 236 lb 12.423 oz Body Mass Index (BMI) 34.0 Intake & Output: Intake and Output for Last 24 Hours 11/30/22 12/01/22 12/02/22 23:59 23:59 23:59 Intake Total 50.00 / 50.00 1145 / 1145 250 / 250 Output Total 875 / 875 925 / 925 Balance 50.00 / -350.00 270 / 270 -675 / -675 Lab / Micro Data Result Diagrams: 12/02/22 06:26 12/02/22 06:26 Labs: Laboratory Results - last 24 hr 12/01/22 16:57: POC Glucose 253 H 12/01/22 21:10: POC Glucose 325 H 12/02/22 06:26: WBC 11.9 H, RBC 5.10, Hgb 14.7, Hct 45.4, MCV 89.0, MCH 28.8, MCHC 32.4, RDW Std Deviation 47.3 H, RDW Coeff of Clay 14.6, Plt Count 304, MPV 9.2, Immature Gran % (Auto) 0.900, Neut % (Auto) 89.8 H, Lymph % (Auto) 7.5 L, Jones % (Auto) 1.6, Eos % (Auto) 0.0, Baso % (Auto) 0.2, Absolute Neuts (auto) 10.7 H, Absolute Lymphs (auto) 0.90, Nucleated RBC % 0 12/02/22 06:26: Sodium 135 L, Potassium 4.5, Chloride 101, Carbon Dioxide 24.0, Anion Gap 10, BUN 47 H, Creatinine 1.91 H, Estim Creat Clear Calc 36.63, Est GFR (MDRD) Af Amer 45 L, Est GFR (MDRD) Non-Af 37 L, BUN/Creatinine Ratio 24.6 H, Glucose 238 H, Calcium 9.2 12/02/22 06:27: POC Glucose 258 H 12/02/22 10:56: POC Glucose 263 H Micro: Microbiology 12/01/22 21:25 Interface Orders Gram Stain - Final 12/01/22 21:25 Interface Orders Respiratory Culture - Preliminary Appears to be normal respiratory collin. Further studies to follow. 11/30/22 23:20 Urine, Clean Catch Legionella Antigen - Final 11/30/22 23:20 Urine, Clean Catch Streptococcus pneumoniae Antigen (M - Final 11/30/22 19:12 Nasal Secretion SARS-CoV-2 & FLU Antigen (Rapid) - Final Physical Exam Narrative Seen and examined. No significant improvement in shortness of breath. Patient still coughing up phlegm. Sputum culture was sent. No fever. Physical exam General: Alert, Oriented x3, Cooperative, obesity grade 3 BMI 34.0 kg/m? HEENT: Atraumatic, PERRLA, EOMI, Normocephalic Oral: No Gingival or Mucosal Lesions/ Ulcerations Neck: Supple, No JVD, Negative Carotid Bruits Lungs: Air entry diminished in bilateral lungs, expiratory rhonchi and rales. Dyspnea on exertion. On 2 L of oxygen. Cardiovascular: Regular rate, Regular Rhythm, Normal S1, Normal S2, No murmurs Abdomen: Bowel Sounds Present, Soft, Non Tender, Non-Distended : No renal angle tenderness. No suprapubic tenderness. Extremities: No edema, Capillary Refill Less than 3 Seconds Skin: No rashes, No breakdown Musculoskeletal: No Tenderness to Palpation of Joints or Extremities Neurological: Cranial nerves II-XII grossly intact, DTR 2+/4 and Symmetrical, Neuro grossly intact Psych/Mental Status: Normal Affect, Appropriate. Assessment & Plan Assessment/Plan (1) Chronic respiratory failure: (2) Pulmonary fibrosis: PLAN: Plan This 71-year-old gentleman admitted with progressive worsening of shortness of breath is being admitted for shortness of breath, dyspnea, unable to do ADLs, pulse ox 66% on 2 L of oxygen at home after recent discharge. He was recently discharged with bilateral multifocal pneumonia and completed 1 week of antibiotic cefdinir on oxygen but he went to [place] to [place]. 1. Pulmonary Fibrosis, most likely bronchiectasis exacerbation: Patient is admitted in PCU. Never been a smoker. Chest x-ray initially reviewed and shows bilateral patchy infiltrates unchanged from the previous x-ray and cardiomegaly. Furthermore, CTA chest was done which did not show PE or aortic dissection but diffuse and extensive bilateral pulmonary fibrosis with traction bronchiectasis and honeycombing since previous chest CT in October 2017. No mass or pleural effusion or pleural thickening. Pulmonary consult reviewed and discussed. Started on IV antibiotic ceftriaxone and doxycycline. Sputum culture is order ed. 12/02: Rapid influenza and COVID-19 antigen negative. Procalcitonin slightly elevated. Solu-Medrol 40 mg every 8 hourly.Sputum culture preliminary shows normal respiratory collin. Urinary antigens are negative. Continue broad-spectrum antibiotic. 2. Diabetes mellitus type II complicated with hyperglycemia. Patient on basal insulin. Accu-Chek insulin is covered with Humalog sliding scale Glucose is high between 2 50-330. Started on a scheduled Humalog insulin and Lantus insulin dose increased. 3. History of PE/history of clotting disorder Xarelto continued DVT prophylaxis: Xarelto continued. Microbiology Past 72 Hours 12/01/22 21:25 Interface Orders Gram Stain - Final 12/01/22 21:25 Interface Orders Respiratory Culture - Preliminary Appears to be normal respiratory collin. Further studies to follow. 11/30/22 23:20 Urine, Clean Catch Legionella Antigen - Final 11/30/22 23:20 Urine, Clean Catch Streptococcus pneumoniae Antigen (M - Final 11/30/22 19:12 Nasal Secretion SARS-CoV-2 & FLU Antigen (Rapid) - Final Laboratory Results 12/01/22 16:57: POC Glucose 253 H 12/01/22 21:10: POC Glucose 325 H 12/02/22 06:26: WBC 11.9 H, RBC 5.10, Hgb 14.7, Hct 45.4, MCV 89.0, MCH 28.8, MCHC 32.4, RDW Std Deviation 47.3 H, RDW Coeff of Clay 14.6, Plt Count 304, MPV 9.2, Immature Gran % (Auto) 0.900, Neut % (Auto) 89.8 H, Lymph % (Auto) 7.5 L, [place] % (Auto) 1.6, Eos % (Auto) 0.0, Baso % (Auto) 0.2, Absolute Neuts (auto) 10.7 H, Absolute Lymphs (auto) 0.90, Nucleated RBC % 0 12/02/22 06:26: Sodium 135 L, Potassium 4.5, Chloride 101, Carbon Dioxide 24.0, Anion Gap 10, BUN 47 H, Creatinine 1.91 H, Estim Creat Clear Calc 36.63, Est GFR (MDRD) Af Amer 45 L, Est GFR (MDRD) Non-Af 37 L, BUN/Creatinine Ratio 24.6 H, Glucose 238 H, Calcium 9.2 12/02/22 06:27: POC Glucose 258 H 12/02/22 10:56: POC Glucose 263 H Charges/Coding Visit Charges Inpatient E&M: 16303 Subs Hosp L2
--- NOTE | 2022-12-02 15:47 | CASEMGMT ---
RN CM chart review: Patient admitted from 11/15-11/17/22 for bilateral multifocal pneumonia. See RN CM assessment from 11/17. Patient [place] [facility] [place] Patient returned to [facility] ED for dyspnea of exertion. Patient was admitted for acute on chronic respiratory failure and pulmonary fibrosis. Patient currently requiring 8 lpm with ambulation. Patient is on IV Solumedrol. Patient states she was wearing oxygen as prescribed and taking medications. Patient states he followed up with PCP. Patient has follow-up appts scheduled with [facility] on 12/[address] Rashmi Rosenthal, director of preclinical research on 01/01/23. Patient was attending outpatient therapy at [facility]. Patient denies needs at discharge, will monitor for increased oxygen needs. CM will continue to monitor this patient and plan for a safe discharge.
[2022-12-02] MEDS: Insulin Lispro 100 UNIT/ML INSULN.PEN 12 UNIT SC (17:08)
[2022-12-02] MEDS: Insulin Glargine-YFGN 100 UNIT/ML Pen 15 UNIT SC (17:08)
[2022-12-02 17:40] LABS: Bedside Glucose 332 mg/dL (74-106)
[2022-12-02 23:36] LABS: Bedside Glucose 280 mg/dL (74-106)
[2022-12-03] VITALS (11 sets, daily range): BP systolic 119–139; BP diastolic 68–89; PULSE 66–85; RESP 16–18; TEMP 36.4–36.8; O2SAT 85–96
[2022-12-03] MEDS: Gabapentin 600 MG Tablet PO ×3 (05:09→21:20)
[2022-12-03] MEDS: 0.9% Saline Lock 10 ML Syringe IV ×3 (05:10→11:57)
[2022-12-03] MEDS: Insulin Lispro 100 UNIT/ML INSULN.PEN SC ×4 (06:24→21:21)
[2022-12-03 06:41] LABS: Absolute Lymphocyte Count 0.84 X10^3/uL (0.83-4.51); Absolute Neutrophil Count 12.5 X10^3/uL (2.0-7.7); Basophil# 0.01 X10^3/uL; Basophil% 0.1 % (0-1); Hematocrit 44.4 % (40-54); Hemoglobin 14.6 g/dL (13.0-16.5); Lymphocyte # 0.84 X10^3/ul (0.83-4.51); Lymphocyte % 6.1 % (19-41); Mean Corp Hgb Conc 32.9 g/dL (32-36); Mean Corpuscular Hgb 29.3 pg (27.0-32.0); Mean Corpuscular Volume 89.2 fL (80-94); Mean Platelet Vol. 9.2 fl (6.2-12.0); Monocyte# 0.24 X10^3/uL; Monocyte% 1.7 % (0-10); NRBC Flagged by Analyzer 0 % (0-5); Neutrophil # 12.54 X10^3/uL (2.7-7.7); Neutrophil % 91.4 % (47-70); Platelet Count 299 K/mm3 (150-450); RBC Distribution Width CV 14.7 % (11.6-14.6); RBC Distribution Width SD 47.8 fl (35.1-43.9); Red Blood Count 4.98 M/mm3 (4.6-6.2); White Blood Count 13.7 K/mm3 (4.4-11.0)
[2022-12-03 06:50] LABS: Bedside Glucose 245 mg/dL (74-106)
[2022-12-03 07:04] LABS: Anion Gap 9 (5-15); BUN 54 mg/dL (7-18); BUN/Creat Ratio 31.2 RATIO (10-20); Calcium,Total 9.1 mg/dL (8.5-10.1); Chloride 103 mmol/L (98-107); Creatinine, Serum 1.73 mg/dL (0.70-1.30); EST Glomerular Filtration Rate 42 mL/min (>60); Est Glom Filt Rate - Afr Amer 50 mL/min (>60); Estimated Creatinine Clearance 40.44 ml/min; Glucose 243 mg/dL (74-106); Potassium 4.8 mmol/L (3.5-5.1); Sodium Level 137 mmol/L (136-145)
[2022-12-03] MEDS: Insulin Lispro 100 UNIT/ML INSULN.PEN 12 UNIT SC ×3 (08:41→17:09)
[2022-12-03] MEDS: Rivaroxaban 10 MG Tablet PO (08:43)
[2022-12-03] MEDS: Losartan Potassium 100 MG Tablet PO (08:44)
[2022-12-03] MEDS: Doxycycline 100 MG CAPSULE PO ×2 (08:44→21:22)
[2022-12-03] MEDS: Metoprolol(XL)Succ 50 MG Tablet PO (08:44)
[2022-12-03] MEDS: guaiFENesin/D-Methorphan TAB.SR.12H 1 TABLET PO ×2 (08:47→21:21)
[2022-12-03] MEDS: Furosemide 40 MG Tablet PO (08:47)
[2022-12-03] MEDS: Empagliflozin 25 MG Tablet PO (08:47)
[2022-12-03] MEDS: amLODIPine 5 MG Tablet PO (08:47)
--- NOTE | 2022-12-03 10:08 | PN.CC_ITS ---
Assessment & Plan Assessment/Plan (1) Hypoxia: (2) Pulmonary fibrosis: PLAN: Plan RECOMMENDATIONS: 1. Likely okay to discontinue antibiotics on discharge 2. Transition to prednisone and wean over the next 12 to 14 days 3. Obtain walking oximetry. Anticipate higher FiO2 requirements with exertion 4. Outpatient autoimmune work-up 5. Agree with diuresis as tolerated 6. Potentially discharge if able to ambulate on 6 L or less 7. Follow-up with nurse practitioner 2 weeks after discharge IMPRESSIONS: 1. Acute hypoxic respiratory insufficiency Clinical suspicion for both an acute and chronic component of current presentation. Patient does have fibrotic changes with significant bronchiectasis noted on CT scan of the chest. Sputum culture has come back negative, so likely okay to discontinue antibiotics. Patient is anticoagulated, so PE is unlikely. Patient will need a walking oximetry prior to discharge. High clinical suspicion the patient will need substantially more oxygen with ambulation as patient is at risk for elevated pulmonary artery pressures. Echocardiogram was last checked in 2020, but patient has risk factors for both type II and type III pulmonary hypertension. Patient would benefit from diuresis. Patient definitely has fibrotic changes of the chest and this will need to be worked up as an outpatient. We will obtain a walking oximetry. Patient can likely be transition to prednisone and wean over the next 12 to 14 days if able to tolerate ambulation on 6 L or less 2. Diabetes mellitus Patient is on basal insulin at baseline. Clinical suspicion that this will have to be increased given the need for systemic steroids. Will watch closely. 3. 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 Patient with decreased mobility at baseline secondary to back issues. This likely allows him to underestimate his pulmonary course. Would be beneficial to see the CAT scan from 2018. Previous echocardiograms were unable to quantify pulmonary artery pressures, but pulmonary hypertension would be a concern. Patient reports c ompliance with Xarelto. Could consider transition from Xarelto to Eliquis given his chronic kidney disease, but defer to primary service. Ultimately, patient may need a right heart catheterization for quantification and clarification of right-sided pressures given inability to visualize on echocardiogram Subjective Subjective Patient did well overnight. No acute issues were reported. Patient overall feels that he is strong enough that he can go home. Patient continues to have a cough, especially with exertion. Patient does state that the sputum is clearing up. Objective Data Objective Data Vital Signs: Vital Signs Temp Pulse Resp BP Pulse Ox O2 Del Method O2 Flow Rate 36.4 C L 75 18 139/89 H 92 Nasal Cannula 2 12/03/22 07:57 12/03/22 08:44 12/03/22 07:57 12/03/22 08:44 12/03/22 07:57 12/03/22 09:00 12/03/22 09:00 Oxygen Flow Rate (L/min) 2 Oxygen Delivery Method Nasal Cannula Weight: 107.4 kg Body Mass Index (BMI) 34.0 Intake & Output: Intake and Output for Last 24 Hours 12/01/22 12/02/22 12/03/22 23:59 23:59 23:59 Intake Total 1145 / 1145 250 / 250 Output Total 875 / 875 2024 / 2024 450 / 450 Balance 270 / 270 -1775 / -1775 -450 / -450 Lab / Micro Data Attestation: I reviewed the patient's lab results. Result Diagrams: 12/03/22 06:05 12/03/22 06:05 Labs: Laboratory Results - last 24 hr 12/02/22 10:56: POC Glucose 263 H 12/02/22 17:05: POC Glucose 332 H 12/02/22 20:30: POC Glucose 280 H 12/03/22 06:05: WBC 13.7 H, RBC 4.98, Hgb 14.6, Hct 44.4, MCV 89.2, MCH 29.3, MCHC 32.9, RDW Std Deviation 47.8 H, RDW Coeff of Clay 14.7 H, Plt Count 299, MPV 9.2, Immature Gran % (Auto) 0.700, Neut % (Auto) 91.4 H, Lymph % (Auto) 6.1 L, [place] % (Auto) 1.7, Eos % (Auto) 0.0, Baso % (Auto) 0.1, Absolute Neuts (auto) 12.5 H, Absolute Lymphs (auto) 0.84, Nucleated RBC % 0 12/03/22 06:05: Sodium 137, Potassium 4.8, Chloride 103, Carbon Dioxide 25.0, Anion Gap 9, BUN 54 H, Creatinine 1.73 H, Estim Creat Clear Calc 40.44, Est GFR (MDRD) Af Amer 50 L, Est GFR (MDRD) Non-Af 42 L, BUN/Creatinine Ratio 31.2 H, Glucose 243 H, Calcium 9.1 12/03/22 06:23: POC Glucose 245 H Micro: Microbiology 12/01/22 21:25 Interface Orders Gram Stain - Final 12/01/22 21:25 Interface Orders Respiratory Culture - Final Mixed normal respiratory collin. No Streptococcus pneumoniae, beta-hemolytic Streptococcus or Staphylococcus aureus isolated. 11/30/22 23:20 Urine, Clean Catch Legionella Antigen - Final 11/30/22 23:20 Urine, Clean Catch Streptococcus pneumoniae Antigen (M - Final 11/30/22 19:12 Nasal Secretion SARS-CoV-2 & FLU Antigen (Rapid) - Final Physical Exam Const alert and oriented x3 General Appearance: cooperative and well developed; Negative for in distress HEENT normocephalic, head/scalp atraumatic and moist oral mucous membranes Eyes PERRL, EOMs intact bilaterally and conjunctivae normal Eyes Narrative: Glasses in place Neck full ROM and no lymphadenopathy Chest inspection of chest normal Resp Effort and Inspection: Negative for actively coughing Auscultation: rales diffuse; Negative for rhonchi or wheezes Percussion: Negative for dullness Cardio regular rate, regular rhythm, S1 normal heart sound, S2 normal heart sound, no murmurs, no rub and no gallops GI normal to inspection, nondistended, normoactive bowel sounds no CVA tenderness Extremity Extremity Narrative: Thenar atrophy noted bilaterally General Extremity: clubbing; Negative for edema Skin no rashes or lesions noted Neuro oriented x3 and CN's II-XII intact bilaterally Neuro Narrative: Weakness of the left lower extremity noted Psych cooperative and affect normal Charges/Coding Visit Charges Inpatient E&M: 01968 Subs Hosp L2
[2022-12-03] MEDS: Ceftriaxone 1 GM/50 ML BAG IV (10:49)
[2022-12-03] MEDS: Insulin Glargine-YFGN 100 UNIT/ML Pen 15 UNIT SC ×2 (10:56→21:22)
[2022-12-03 12:11] LABS: Bedside Glucose 292 mg/dL (74-106)
--- NOTE | 2022-12-03 14:48 | PCM.PN.HOSP ---
Reason for Visit Reason for Visit: Diagnoses Pulmonary fibrosis, unspecified (11/30/22) Chronic respiratory failure, unspecified whether with hypoxia or hypercapnia (11/30/22) Hypoxemia (11/30/22) Subjective Subjective Follow-up for severe shortness of breath, acute on chronic combined respiratory failure Objective Data Objective Data Vital Signs: Vital Signs Temp Pulse Resp BP Pulse Ox O2 Del Method O2 Flow Rate 97.7 F L 85 18 135/70 H 93 Room Air 2 12/03/22 13:32 12/03/22 13:32 12/03/22 13:32 12/03/22 13:32 12/03/22 13:32 12/03/22 13:32 12/03/22 13:32 Oxygen Flow Rate (L/min) [ 8 AMBULATING with Oxygen #3] Oxygen Flow Rate (L/min) [ 6 AMBULATING with Oxygen #2] Oxygen Flow Rate (L/min) [ 4 AMBULATING with Oxygen #1] Oxygen Flow Rate (L/min) [At 2 REST with Oxygen] Oxygen Flow Rate (L/min) 2 Oxygen Delivery Method Room Air Weight: 236 lb 12.423 oz Body Mass Index (BMI) 34.0 Intake & Output: Intake and Output for Last 24 Hours 12/01/22 12/02/22 12/03/22 23:59 23:59 23:59 Intake Total 1145 / 1145 250 / 250 180 / 180 Output Total 875 / 875 2024 / 2024 550 / 550 Balance 270 / 270 -1775 / -1775 -370 / -370 Lab / Micro Data Result Diagrams: 12/03/22 06:05 12/03/22 06:05 Labs: Laboratory Results - last 24 hr 12/02/22 17:05: POC Glucose 332 H 12/02/22 20:30: POC Glucose 280 H 12/03/22 06:05: WBC 13.7 H, RBC 4.98, Hgb 14.6, Hct 44.4, MCV 89.2, MCH 29.3, MCHC 32.9, RDW Std Deviation 47.8 H, RDW Coeff of Clay 14.7 H, Plt Count 299, MPV 9.2, Immature Gran % (Auto) 0.700, Neut % (Auto) 91.4 H, Lymph % (Auto) 6.1 L, [place] % (Auto) 1.7, Eos % (Auto) 0.0, Baso % (Auto) 0.1, Absolute Neuts (auto) 12.5 H, Absolute Lymphs (auto) 0.84, Nucleated RBC % 0 12/03/22 06:05: Sodium 137, Potassium 4.8, Chloride 103, Carbon Dioxide 25.0, Anion Gap 9, BUN 54 H, Creatinine 1.73 H, Estim Creat Clear Calc 40.44, Est GFR (MDRD) Af Amer 50 L, Est GFR (MDRD) Non-Af 42 L, BUN/Creatinine Ratio 31.2 H, Glucose 243 H, Calcium 9.1 12/03/22 06:23: POC Glucose 245 H 12/03/22 11:38: POC Glucose 292 H Micro: Microbiology 12/01/22 21:25 Interface Orders Gram Stain - Final 12/01/22 21:25 Interface Orders Respiratory Culture - Final Mixed normal respiratory collin. No Streptococcus pneumoniae, beta-hemolytic Streptococcus or Staphylococcus aureus isolated. 11/30/22 23:20 Urine, Clean Catch Legionella Antigen - Final 11/30/22 23:20 Urine, Clean Catch Streptococcus pneumoniae Antigen (M - Final 11/30/22 19:12 Nasal Secretion SARS-CoV-2 & FLU Antigen (Rapid) - Final Physical Exam Narrative Seen and examined. Patient has mild improvement in shortness of breath. On 2 L of oxygen at rest but on ambulation it goes 8 L with dyspnea and fatigue. Cough slightly better. Sputum culture growing mixed normal respiratory collin. No fever. Physical exam General: Alert, Oriented x3, Cooperative, obesity grade 3 BMI 34.0 kg/m? HEENT: Atraumatic, PERRLA, EOMI, Normocephalic Oral: No Gingival or Mucosal Lesions/ Ulcerations Neck: Supple, No JVD, Negative Carotid Bruits Lungs: Air entry diminished in bilateral lungs, expiratory rhonchi and rales. Dyspnea on exertion. Cardiovascular: Regular rate, Regular Rhythm, Normal S1, Normal S2, No murmurs Abdomen: Bowel Sounds Present, Soft, Non Tender, Non-Distended : No renal angle tenderness. No suprapubic tenderness. Extremities: No edema, Capillary Refill Less than 3 Seconds Skin: No rashes, No breakdown Musculoskeletal: No Tenderness to Palpation of Joints or Extremities Neurological: Cranial nerves II-XII grossly intact, DTR 2+/4 and Symmetrical, Neuro grossly intact Psych/Mental Status: Normal Affect, Appropriate. Assessment & Plan Assessment/Plan (1) Chronic respiratory failure: (2) Pulmonary fibrosis: PLAN: Plan This 71-year-old gentleman admitted with progressive worsening of shortness of breath is being admitted for shortness of breath, dyspnea, unable to do ADLs, pulse ox 66% on 2 L of oxygen at home after recent discharge. He was recently discharged with bilateral multifocal pneumonia and completed 1 week of antibiotic cefdinir on oxygen but he went to [place] to camp. 1. Pulmonary Fibrosis, most likely bronchiectasis exacerbation: Patient is admitted in PCU. Never been a smoker. Chest x-ray initially reviewed and shows bilateral patchy infiltrates unchanged from the previous x-ray and cardiomegaly. Furthermore, CTA chest was done which did not show PE or aortic dissection but diffuse and extensive bilateral pulmonary fibrosis with traction bronchiectasis and honeycombing since previous chest CT in October 2017. No mass or pleural effusion or pleural thickening. Pulmonary consult reviewed and discussed. Started on IV antibiotic ceftriaxone and doxycycline. Sputum culture is ordered. 2: Rapid influenza and COVID-19 antigen negative. Procalcitonin slightly elevated. Solu-Medrol 40 mg every 8 hourly.Sputum culture preliminary shows normal respiratory collin. Urinary antigens are negative. Continue broad-spectrum antibiotic. 12/03: Pulmonary follow-up reviewed. Transition to prednisone with long taper over 14 days. Pulmonary clinic follow-up with outpatient autoimmune work-up. Continue diuresis. Discharge if oxygen requirement on ambulation is 6 L or less. 2. Diabetes mellitus type II complicated with hyperglycemia. Patient on basal insulin. Accu-Chek insulin is covered with Humalog sliding scale Glucose is high between 250-330. Started on a scheduled Humalog insulin and Lantus insulin dose increased. 12/03: Solu-Medrol discontinued and started on prednisone therefore hyperglycemia expected to get better 3. History of PE/history of clotting disorder Xarelto continued DVT prophylaxis: Xarelto continued. Charges/Coding Visit Charges Inpatient E&M: 25636 Subs Hosp L2
[2022-12-03 17:36] LABS: Bedside Glucose 305 mg/dL (74-106)
[2022-12-03 23:16] LABS: Bedside Glucose 196 mg/dL (74-106)
[2022-12-04] VITALS (7 sets, daily range): BP systolic 115–131; BP diastolic 68–75; PULSE 72–78; RESP 18; TEMP 36.4–36.6; O2SAT 81–95
[2022-12-04 06:31] LABS: Absolute Lymphocyte Count 1.16 X10^3/uL (0.83-4.51); Absolute Neutrophil Count 11.4 X10^3/uL (2.0-7.7); Basophil# 0.01 X10^3/uL; Basophil% 0.1 % (0-1); Eosinophil# 0.01 X10^3/uL; Eosinophils% 0.1 % (0-5); Hematocrit 44.4 % (40-54); Hemoglobin 14.4 g/dL (13.0-16.5); Lymphocyte # 1.16 X10^3/ul (0.83-4.51); Lymphocyte % 8.7 % (19-41); Mean Corp Hgb Conc 32.4 g/dL (32-36); Mean Corpuscular Hgb 29.4 pg (27.0-32.0); Mean Corpuscular Volume 90.6 fL (80-94); Mean Platelet Vol. 9.2 fl (6.2-12.0); Monocyte# 0.62 X10^3/uL; Monocyte% 4.7 % (0-10); NRBC Flagged by Analyzer 0 % (0-5); Neutrophil # 11.36 X10^3/uL (2.7-7.7); Neutrophil % 85.5 % (47-70); Platelet Count 305 K/mm3 (150-450); RBC Distribution Width CV 14.6 % (11.6-14.6); RBC Distribution Width SD 48.2 fl (35.1-43.9); White Blood Count 13.3 K/mm3 (4.4-11.0)
[2022-12-04] MEDS: Gabapentin 600 MG Tablet PO ×2 (06:48→12:43)
[2022-12-04 06:53] LABS: Anion Gap 7 (5-15); BUN 54 mg/dL (7-18); BUN/Creat Ratio 36.5 RATIO (10-20); Calcium,Total 8.9 mg/dL (8.5-10.1); Chloride 105 mmol/L (98-107); Creatinine, Serum 1.48 mg/dL (0.70-1.30); EST Glomerular Filtration Rate 50 mL/min (>60); Est Glom Filt Rate - Afr Amer 60 mL/min (>60); Estimated Creatinine Clearance 47.27 ml/min; Glucose 196 mg/dL (74-106); Potassium 4.5 mmol/L (3.5-5.1); Sodium Level 137 mmol/L (136-145)
[2022-12-04 07:36] LABS: Bedside Glucose 187 mg/dL (74-106)
[2022-12-04] MEDS: Losartan Potassium 100 MG Tablet PO (08:58)
[2022-12-04] MEDS: Furosemide 40 MG Tablet PO (08:59)
[2022-12-04] MEDS: amLODIPine 5 MG Tablet PO (08:59)
[2022-12-04] MEDS: guaiFENesin/D-Methorphan TAB.SR.12H 1 TABLET PO (08:59)
[2022-12-04] MEDS: Empagliflozin 25 MG Tablet PO (08:59)
[2022-12-04] MEDS: Doxycycline 100 MG CAPSULE PO (08:59)
[2022-12-04] MEDS: Rivaroxaban 10 MG Tablet PO (09:00)
[2022-12-04] MEDS: Insulin Glargine-YFGN 100 UNIT/ML Pen 15 UNIT SC (09:07)
[2022-12-04] MEDS: predniSONE 20 MG Tablet 40 MG PO (09:07)
[2022-12-04] MEDS: Insulin Lispro 100 UNIT/ML INSULN.PEN 12 UNIT SC ×2 (09:08→12:35)
[2022-12-04] MEDS: Insulin Lispro 100 UNIT/ML INSULN.PEN SC ×2 (09:08→12:34)
[2022-12-04] MEDS: Metoprolol(XL)Succ 50 MG Tablet PO (09:12)
--- NOTE | 2022-12-04 09:37 | PCM.DC ---
Discharge Instructions Diet Discharge Diet: Low fat / Low cholesterol, 1800 Calorie Control Diet and 2000 mg Sodium Diet Activity Discharge Activity: Return to Normal Activity Weight Bearing Status: Weight bearing as tolerated Dressing / Incision Call your doctor if you observe: Fever of 101 or Higher, Coldness, Increased Pain, Numbness or Tingling, Change in Color, Inability to urinate, Inability to have a bowel movement, Shortness of breath, Dizziness, Fainting spells, Swelling in the ankles, Chest pain, Prolonged hiccupping, Increased palpitations (irregular heartbeat) and Calf discomfort Follow Up Care When: IN 2 WEEKS Test Results: Test results from this visit will be discussed in further detail at your follow-up appointment, if applicable. Discharge Plan Admission Admit Date/Time: 11/30/22 22:48 Primary Reason for Your Visit: Bronchiectasis/COPD exacerbation. Pulmonary fibrosis. Attending Provider: Kahlil David Primary Care Provider: Timothy Diana Consulting Providers: Bhaskar Jones ; Nehemias Valdez ; Denis Rosenthal ; Gabriele Blue ; Ronan Martinez ; Violet Whitney ANAESTHESIOLOGIST Discharge Orders/Prescriptions Prescriptions: New furosemide 40 mg Tablet 40 mg PO BIDLX 30 Days Qty: 60 0RF Rx Instructions: Repeat BMP in 1 week and probably decrease to 40 mg once daily after 1 week prednisone 10 mg tablets,dose pack See Taper PO DAILY Qty: 30 0RF Taper: Prednisone Taper 40 mg WITH BREAKFAST for 4 Days and 0 Hour 30 mg WITH BREAKFAST for 4 Days and 0 Hour 20 mg WITH BREAKFAST for 4 Days and 0 Hour 10 mg WITH BREAKFAST for 5 Days and 0 Hour Rx Instructions: 40 mg with breakfast for 4 Days; 30 mgfor 4 Days; 20 mg for 4 Days; 10 mg for 5 Days ipratropium-albuterol 0.5 mg-3 mg(2.5 mg base)/3 mL solution for nebulization 3 ml inhalation Q4H PRN (Reason: shortness of breath or wheezing) Qty: 180 0RF Rx Instructions: ICD 10 CODE J47 Continued telmisartan 80 mg tablet 80 mg PO DAILY semaglutide 1 mg/dose (2 mg/1.5 mL) pen injector 2 mg SC TU gabapentin 600 mg tablet 600 mg PO TID Xarelto 10 mg tablet 10 mg PO DAILY Farxiga 10 mg tablet 10 mg PO DAILY Tresiba FlexTouch U-100 100 unit/mL (3 mL) insulin pen 16 unit subcut QHS metoprolol succinate [Toprol XL] 50 mg tablet extended release 24 hr 50 mg PO DAILY Qty: 90 3RF amlodipine 5 mg tablet 5 mg PO DAILY Qty: 90 3RF insulin lispro 100 unit/mL insulin pen See Protocol SUBCUT TIDCM Protocol: 3. Sliding Scale Insulin Med Dosing Condition: 150-189 mg/dl = 1 unit Condition: 190-229 mg/dl = 2 units Condition: 230-269 mg/dl = 3 units Condition: 270-309 mg/dl = 4 units Condition: 310-349 mg/dl = 5 units Condition: 350-399 mg/dl = 6 units Condition: 400-449 mg/dl = 7 units Condition: Greater than 449 call physician Protocol Text: - Use for Total Daily Dose of Insulin 37-55 units - Obsese, infected, or steroid patients MEDIUM DOSING ALGORITHIM Label Comments: INJECT 9 UNITS SUBCUTANEOUSLY PLUS SLIDING SCALE WITH BREAKFAST AND 11 UNITS PLUS SLIDING SCALE WITH LUNCH AND SUPPER. MAX 60 UNITS PER DAY Changed Mucinex DM 30-600 mg Tablet Extended Release 12 Hr 2 tab PO BID 7 Days Qty: 28 0RF insulin lispro [Humalog KwikPen Insulin] 100 unit/mL insulin pen 12 unit subcut TIDCM Qty: 15 0RF Discontinued furosemide [Lasix] 40 mg tablet 40 mg PO QDAY Qty: 90 3RF Referrals / Follow Up: Nehemias Valdez MD [Med Staff - Active Staff] - Within 2 Weeks (With Violet Xavier) Timothy Diana MD [Primary Care Provider] - Disposition Disposition (needs filled in before D/C Order can be placed): Home Health Service
[2022-12-04] MEDS: Ceftriaxone 1 GM/50 ML BAG IV (10:19)
[2022-12-04] MEDS: 0.9% Saline Lock 10 ML Syringe IV (10:19)
--- NOTE | 2022-12-04 10:25 | PCM.PN.INT ---
Assessment & Plan Assessment/Plan (1) Hypoxia: (2) Pulmonary fibrosis: PLAN: Plan RECOMMENDATIONS: 1. Increase diuresis 2. Transition to prednisone and wean over the next 12 to 14 days 3. Obtain walking oximetry. Anticipate higher FiO2 requirements with exertion 4. Outpatient autoimmune work-up 5. Arrange for a 10 L/min concentrator at home 6. Potentially discharge if able to ambulate on 6 L or less 7. Follow-up with nurse practitioner 2 weeks after discharge IMPRESSIONS: 1. Acute hypoxic respiratory insufficiency Clinical suspicion for both an acute and chronic component of current presentation. Patient does have fibrotic changes with significant bronchiectasis noted on CT scan of the chest. Sputum culture has come back negative, so likely okay to discontinue antibiotics. Patient is anticoagulated, so PE is unlikely. Patient will need a walking oximetry prior to discharge. High clinical suspicion the patient will need substantially more oxygen with ambulation as patient is at risk for elevated pulmonary artery pressures. Echocardiogram was last checked in 2020, but patient has risk factors for both type II and type III pulmonary hypertension. Patient would benefit from diuresis. Patient definitely has fibrotic changes of the chest and this will need to be worked up as an outpatient. We will obtain a walking oximetry. Patient can likely be transition to prednisone and wean over the next 12 to 14 days if able to tolerate ambulation on 6 L or less. We will continue to diurese until patient can ambulate on 6 L or less. 2. Diabetes mellitus Patient is on basal insulin at baseline. Clinical suspicion that this will have to be increased given the need for systemic steroids. Will watch closely. 3. 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 Patient with decreased mobility at baseline secondary to back issues. This likely allows him to underestimate his pulmonary course. Would be beneficial to see the CAT scan from 2018. Previous echocardiograms were unable to quantify pulmonary artery pressures, but pulmonary hypertension would be a concern. Patient reports compliance with Xarelto. Could consider transition from Xarelto to Eliquis given his chronic kidney disease, but defer to primary service. Ultimately, patient may need a right heart catheterization for quantification and clarification of right-sided pressures given inability to visualize on echocardiogram. Improvement in creatinine with diuresis is suggestive the patient is off his Star[place] curve. Subjective Subjective Patient feels subjectively unchanged compared to previous. Patient was unable to be discharged yesterday secondary to high FiO2 requirements with ambulation. Patient continues to have some cough and dyspnea with minimal exertion, but required 8 L/min with ambulation yesterday. Objective Data Objective Data Vital Signs: Vital Signs Temp Pulse Resp BP Pulse Ox O2 Del Method O2 Flow Rate 36.4 C L 72 18 115/68 95 Nasal Cannula 2 12/04/22 04:00 12/04/22 09:12 12/04/22 04:00 12/04/22 09:12 12/04/22 04:00 12/04/22 05:33 12/04/22 05:33 Oxygen Flow Rate (L/min) [ 8 AMBULATING with Oxygen #3] Oxygen Flow Rate (L/min) [ 6 AMBULATING with Oxygen #2] Oxygen Flow Rate (L/min) [ 4 AMBULATING with Oxygen #1] Oxygen Flow Rate (L/min) [At 2 REST with Oxygen] Oxygen Flow Rate (L/min) 2 Oxygen Delivery Method Nasal Cannula Weight: 107.4 kg Body Mass Index (BMI) 34.0 Intake & Output: Intake and Output for Last 24 Hours 12/02/22 12/03/22 12/04/22 23:59 23:59 23:59 Intake Total 250 / 250 470 / 470 Output Total 2024 / 2024 550 / 650 250 / 250 Balance -1775 / -1775 -80 / -180 -250 / -250 Lab / Micro Data Attestation: I reviewed the patient's lab results. Result Diagrams: 12/04/22 06:12 12/04/22 06:12 Labs: Laboratory Results - last 24 hr 12/03/22 11:38: POC Glucose 292 H 12/03/22 17:04: POC Glucose 305 H 12/03/22 21:20: POC Glucose 196 H 12/04/22 06:12: WBC 13.3 H, RBC 4.90, Hgb 14.4, Hct 44.4, MCV 90.6, MCH 29.4, MCHC 32.4, RDW Std Deviation 48.2 H, RDW Coeff of [place] 14.6, Plt Count 305, MPV 9.2, Immature Gran % (Auto) 0.900, Neut % (Auto) 85.5 H, Lymph % (Auto) 8.7 L, [place] % (Auto) 4.7, Eos % (Auto) 0.1, Baso % (Auto) 0.1, Absolute Neuts (auto) 11.4 H, Absolute Lymphs (auto) 1.16, Nucleated RBC % 0 12/04/22 06:12: Sodium 137, Potassium 4.5, Chloride 105, Carbon Dioxide 25.0, Anion Gap 7, BUN 54 H, Creatinine 1.48 H, Estim Creat Clear Calc 47.27, Est GFR (MDRD) Af Amer 60, Est GFR (MDRD) Non-Af 50 L, BUN/Creatinine Ratio 36.5 H, Glucose 196 H, Calcium 8.9 12/04/22 07:16: POC Glucose 187 H Micro: Microbiology 12/01/22 21:25 Interface Orders Gram Stain - Final 12/01/22 21:25 Interface Orders Respiratory Culture - Final Mixed normal respiratory collin. No Streptococcus pneumoniae, beta-hemolytic Streptococcus or Staphylococcus aureus isolated. 11/30/22 23:20 Urine, Clean Catch Legionella Antigen - Final 11/30/22 23:20 Urine, Clean Catch Streptococcus pneumoniae Antigen (M - Final 11/30/22 19:12 Nasal Secretion SARS-CoV-2 & FLU Antigen (Rapid) - Final Physical Exam Const alert and oriented x3 General Appearance: cooperative and well developed; Negative for in distress HEENT normocephalic, head/scalp atraumatic and moist oral mucous membranes Eyes PERRL, EOMs intact bilaterally and conjunctivae normal Eyes Narrative: Glasses in place Neck full ROM and no lymphadenopathy Chest inspection of chest normal Resp Effort and Inspection: Negative for actively coughing Auscultation: rales diffuse; Negative for rhonchi or wheezes Cardio regular rate, regular rhythm, S1 normal heart sound, S2 normal heart sound, no murmurs, no rub and no gallops GI normal to inspection, nondistended, normoactive bowel sounds no CVA tenderness Extremity Extremity Narrative: Thenar atrophy noted bilaterally General Extremity: clubbing; Negative for edema Skin no rashes or lesions noted Neuro oriented x3 and CN's II-XII intact bilaterally Neuro Narrative: Weakness of the left lower extremity noted Psych cooperative and affect normal Charges/Coding Visit Charges Inpatient E&M: 29964 Subs Hosp L2
[2022-12-04 12:06] LABS: Bedside Glucose 213 mg/dL (74-106)
--- NOTE | 2022-12-04 14:40 | PCM.DC.SUM ---
Providers Date of Admission: 11/30/22 Date of Discharge: 12/04/22 Primary Care Physician: Dr. Timothy Diana MD Consultations 12/01/22 08:14 Consult: [employer] Engineer / Pulmonary Medicine Routine Consulting Provider: Pulmonary Medicine marques Shirley Reason for Consult: B/L pulm fibrosis with recent pneumonia EMERGENT Consult: No MD Notified: Yes Date Notified: 12/01/22 Time Notified: 08:14 Method of Notification: Text Reason For Visit: HYPOXIA Diagnosis Discharge Diagnosis (1) Hypoxia: Status: Acute Code(s): R09.02 - Hypoxemia (2) Pulmonary fibrosis: Status: Chronic Code(s): J84.10 - Pulmonary fibrosis, unspecified Plan This 71-year-old gentleman admitted with progressive worsening of shortness of breath is being admitted for shortness of breath, dyspnea, unable to do ADLs, pulse ox 66% on 2 L of oxygen at home after recent discharge. He was recently discharged with bilateral multifocal pneumonia and completed 1 week of antibiotic cefdinir on oxygen but he went to [place] to [place]. 1. Pulmonary Fibrosis, most likely bronchiectasis exacerbation: Patient is admitted in PCU. Never been a smoker. Chest x-ray initially reviewed and shows bilateral patchy infiltrates unchanged from the previous x-ray and cardiomegaly. Furthermore, CTA chest was done which did not show PE or aortic dissection but diffuse and extensive bilateral pulmonary fibrosis with traction bronchiectasis and honeycombing since previous chest CT in October 2017. No mass or pleural effusion or pleural thickening. Pulmonary consult reviewed and discussed. Started on IV antibiotic ceftriaxone and doxycycline. Sputum culture is ordered. 12/02: Rapid influenza and COVID-19 antigen negative. Procalcitonin slightly elevated. Solu-Medrol 40 mg every 8 hourly.Sputum culture preliminary shows normal respiratory collin. Urinary antigens are negative. Continue broad-spectrum antibiotic. 12/03: Pulmonary follow-up reviewed. Transition to prednisone with long taper over 14 days. Pulmonary clinic follow-up with outpatient autoimmune work-up. Continue diuresis. Discharge if oxygen requirement on ambulation is 6 L or less. 12/04: Walking pulse oximetry was done and patient required 6 L on ambulation and 2 L at rest. Patient is ambulatory in home and in the community and requires home oxygen 10 L concentrator with portability. Patient is discharged on prolonged taper of prednisone, Mucinex DM and DuoNeb nebulization. Follow-up in pulmonary clinic Dr. Valdez in 2 weeks. Patient is also discharged on 2. 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 RVSP 25 mmHg. Patient will need outpatient echo. Patient was diuresed with Lasix. Patient on metoprolol and ARB. Discharged on furosemide 40 mg twice daily with follow-up BMP in 1 week to titrate to the dose of furosemide. 3. Diabetes mellitus type II complicated with hyperglycemia. Patient on basal insulin. Accu-Chek insulin is covered with Humalog sliding scale Glucose is high between 250-330. Started on a scheduled Humalog insulin and Lantus insulin dose increased. 12/03: Solu-Medrol discontinued and started on prednisone therefore hyperglycemia expected to get better 12/04: Dose of home insulin increased. 4. History of PE/history of clotting disorder Xarelto continued DVT prophylaxis: Xarelto continued. Discharge medication reconciliation done. Discharge follow-up instructions completed. Discharge process discussed with the patient and all questions were answered to patient's satisfaction. Total time spent, exact 35 minutes on discharge meds reconciliation, examination, coordination of care with nurses and ancillary staff, review of imaging and blood test and discussion with the patient on follow-up instructions. Medications at Discharge Home Medications telmisartan 80 mg tablet 80 mg PO DAILY 11/03/19 semaglutide 1 mg/dose (2 mg/1.5 mL) subcutaneous pen injector 2 mg subcut TU 11/30/20 amlodipine 5 mg tablet 5 mg PO DAILY #90 tabs 05/26/22 dapagliflozin 10 mg tablet (Farxiga) 10 mg PO DAILY 05/26/22 gabapentin 600 mg tablet 600 mg PO TID 05/26/22 insulin degludec 100 unit/mL (3 mL) subcutaneous pen (Tresiba FlexTouch U-100 insulin) 16 unit subcut QHS 05/26/22 metoprolol succinate 50 mg tablet,extended release 24 hr (Toprol XL) 50 mg PO DAILY #90 tabs 05/26/22 rivaroxaban 10 mg tablet (Xarelto) 10 mg PO DAILY 05/26/22 insulin lispro 100 unit/mL subcutaneous pen See Protocol subcut TIDCM 11/15/22 dextromethorphan-guaifenesin 30 mg-600 mg tablet extended empjpve00 hr (Mucinex DM) 2 tab PO BID 7 days #28 tabs 12/04/22 furosemide 40 mg tablet 40 mg PO BIDLX 30 days #60 tabs 12/04/22 insulin lispro 100 unit/mL subcutaneous pen (Humalog KwikPen (U-100) Insulin) 12 unit (0.12 mL) subcut TIDCM #15 mL 12/04/22 ipratropium 0.5 mg-albuterol 3 mg (2.5 mg base)/3 mL nebulization soln 3 ml inhalation Q4H PRN shortness of breath or wheezing #180 mL 12/04/22 prednisone 10 mg tablets in a dose pack See Taper PO DAILY #30 tabs 12/04/22 Physical Exam Narrative Seen and examined. Patient has improvement in shortness of breath. On ambulation oxygen went up 6 L but dyspnea is improving. No fever Physical exam General: Alert, Oriented x3, Cooperative, obesity grade 3 BMI 34.0 kg/m? HEENT: Atraumatic, PERRLA, EOMI, Normocephalic Oral: No Gingival or Mucosal Lesions/ Ulcerations Neck: Supple, No JVD, Negative Carotid Bruits Lungs: Air entry diminished in bilateral lungs, expiratory rhonchi. Dyspnea on moderate exertion. Cardiovascular: Regular rate, Regular Rhythm, Normal S1, Normal S2, No murmurs Abdomen: Bowel Sounds Present, Soft, Non Tender, Non-Distended : No renal angle tenderness. No suprapubic tenderness. Extremities: No edema, Capillary Refill Less than 3 Seconds Skin: No rashes, No breakdown Musculoskeletal: No Tenderness to Palpation of Joints or Extremities Neurological: Cranial nerves II-XII grossly intact, DTR 2+/4 and Symmetrical, Neuro grossly intact Psych/Mental Status: Normal Affect, Appropriate. Weight / BMI Weight Weight: 236 lb 12.423 oz Body Mass Index (BMI) 34.0 ABG / Lab / Microbiology Data Result Diagrams: 12/04/22 06:12 12/04/22 06:12 Laboratory: Laboratory Results - last 24 hr 12/03/22 17:04: POC Glucose 305 H 12/03/22 21:20: POC Glucose 196 H 12/04/22 06:12: WBC 13.3 H, RBC 4.90, Hgb 14.4, Hct 44.4, MCV 90.6, MCH 29.4, MCHC 32.4, RDW Std Deviation 48.2 H, RDW Coeff of Clay 14.6, Plt Count 305, MPV 9.2, Immature Gran % (Auto) 0.900, Neut % (Auto) 85.5 H, Lymph % (Auto) 8.7 L, [place] % (Auto) 4.7, Eos % (Auto) 0.1, Baso % (Auto) 0.1, Absolute Neuts (auto) 11.4 H, Absolute Lymphs (auto) 1.16, Nucleated RBC % 0 12/04/22 06:12: Sodium 137, Potassium 4.5, Chloride 105, Carbon Dioxide 25.0, Anion Gap 7, BUN 54 H, Creatinine 1.48 H, Estim Creat Clear Calc 47.27, Est GFR (MDRD) Af Amer 60, Est GFR (MDRD) Non-Af 50 L, BUN/Creatinine Ratio 36.5 H, Glucose 196 H, Calcium 8.9 12/04/22 07:16: POC Glucose 187 H 12/04/22 11:32: POC Glucose 213 H Microbiology: Microbiology 12/01/22 21:25 Interface Orders Gram Stain - Final 12/01/22 21:25 Interface Orders Respiratory Culture - Final Mixed normal respiratory collin. No Streptococcus pneumoniae, beta-hemolytic Streptococcus or Staphylococcus aureus isolated. 11/30/22 23:20 Urine, Clean Catch Legionella Antigen - Final 11/30/22 23:20 Urine, Clean Catch Streptococcus pneumoniae Antigen (M - Final 11/30/22 19:12 Nasal Secretion SARS-CoV-2 & FLU Antigen (Rapid) - Final D/C Instructions Discharge Diet: Low fat / Low cholesterol, 1800 Calorie Control Diet and 2000 mg Sodium Diet Weight Bearing Status: Weight bearing as tolerated Call your doctor if you observe: Fever of 101 or Higher, Coldness, Increased Pain, Numbness or Tingling, Change in Color, Inability to urinate, Inability to have a bowel movement, Shortness of breath, Dizziness, Fainting spells, Swelling in the ankles, Chest pain, Prolonged hiccupping, Increased palpitations (irregular heartbeat) and Calf discomfort When: IN 2 WEEKS Meaningful Use Info Meaningful Use Diagnoses (Choose all that apply): None applicable Discharge Plan Admission Admit Date/Time: 11/30/22 22:48 Primary Reason for Your Visit: Bronchiectasis/COPD exacerbation. Pulmonary fibrosis. Attending Provider: Kahlil David Primary Care Provider: Timothy Diana Consulting Providers: Bhaskar Jones ; Nehemias Valdez ; Denis Rosenthal ; Gabriele Blue ; Ronan Martinez ; Violet Whitney [employer]ESPERSON [employer] Discharge Orders/Prescriptions Prescriptions: New furosemide 40 mg Tablet 40 mg PO BIDLX 30 Days Qty: 60 0RF Rx Instructions: Repeat BMP in 1 week and probably decrease to 40 mg once daily after 1 week prednisone 10 mg tablets,dose pack See Taper PO DAILY Qty: 30 0RF Taper: Prednisone Taper 40 mg WITH BREAKFAST for 4 Days and 0 Hour 30 mg WITH BREAKFAST for 4 Days and 0 Hour 20 mg WITH BREAKFAST for 4 Days and 0 Hour 10 mg WITH BREAKFAST for 5 Days and 0 Hour Rx Instructions: 40 mg with breakfast for 4 Days; 30 mgfor 4 Days; 20 mg for 4 Days; 10 mg for 5 Days ipratropium-albuterol 0.5 mg-3 mg(2.5 mg base)/3 mL solution for nebulization 3 ml inhalation Q4H PRN (Reason: shortness of breath or wheezing) Qty: 180 0RF Rx Instructions: ICD 10 CODE J47 Continued telmisartan 80 mg tablet 80 mg PO DAILY semaglutide 1 mg/dose (2 mg/1.5 mL) pen injector 2 mg SC TU gabapentin 600 mg tablet 600 mg PO TID Xarelto 10 mg tablet 10 mg PO DAILY Farxiga 10 mg tablet 10 mg PO DAILY Tresiba FlexTouch U-100 100 unit/mL (3 mL) insulin pen 16 unit subcut QHS metoprolol succinate [Toprol XL] 50 mg tablet extended release 24 hr 50 mg PO DAILY Qty: 90 3RF amlodipine 5 mg tablet 5 mg PO DAILY Qty: 90 3RF insulin lispro 100 unit/mL insulin pen See Protocol SUBCUT TIDCM Protocol: 3. Sliding Scale Insulin Med Dosing Condition: 150-189 mg/dl = 1 unit Condition: 190-229 mg/dl = 2 units Condition: 230-269 mg/dl = 3 units Condition: 270-309 mg/dl = 4 units Condition: 310-349 mg/dl = 5 units Condition: 350-399 mg/dl = 6 units Condition: 400-449 mg/dl = 7 units Condition: Greater than 449 call physician Protocol Text: - Use for Total Daily Dose of Insulin 37-55 units - Obsese, infected, or steroid patients MEDIUM DOSING ALGORITHIM Label Comments: INJECT 9 UNITS SUBCUTANEOUSLY PLUS SLIDING SCALE WITH BREAKFAST AND 11 UNITS PLUS SLIDING SCALE WITH LUNCH AND SUPPER. MAX 60 UNITS PER DAY Changed Mucinex DM 30-600 mg Tablet Extended Release 12 Hr 2 tab PO BID 7 Days Qty: 28 0RF insulin lispro [Humalog KwikPen Insulin] 100 unit/mL insulin pen 12 unit subcut TIDCM Qty: 15 0RF Discontinued furosemide [Lasix] 40 mg tablet 40 mg PO QDAY Qty: 90 3RF Referrals / Follow Up: Nehemias Valdez MD [Med Staff - Active Staff] - Within 2 Weeks (With Violet Xavier) Timothy Diana MD [Primary Care Provider] - Disposition Disposition (needs filled in before D/C Order can be placed): Home Health Service Charges/Coding Visit Charges Inpatient E&M: 99921 Disch Hosp >30min
--- NOTE | 2022-12-04 15:09 | CASEMGMT ---
RN CM updated that patient will need 6lpm with ambulation at discharge. New script received for increased oxygen order and nebulizer. RN CM sent updated referral to Nick, patient's preferred provider, via [facility] and made arrangements for equipment to be delivered to patient's home. RN CM back to update patient, patient states is bringing in portable tank. Patient had no further questions or concerns at this time.
== END 2022-12-04 17:10 | disposition home or self-care (01) | DRG 196 ==
LOC: ED 21:15 → PCU 21:37
PROVIDERS: Internal Medicine Critical Care Medicine; Nurse Practitioner; Admitting Provider Hospitalist; Emergency Provider Emergency Medicine; PCP Family Medicine; Visit Provider Internal Medicine
DX: J84.10 Pulmonary fibrosis, unspecified (principal); J96.21 Acute and chronic respiratory failure with hypoxia; J96.22 Acute and chronic respiratory failure with hypercapnia; I42.8 Other cardiomyopathies; J47.0 Bronchiectasis with acute lower respiratory infection; I13.0 Hypertensive heart and chronic kidney disease with heart failure and stage 1 through stage 4 chronic kidney disease, or unspecified chronic kidney disease; I50.32 Chronic diastolic (congestive) heart failure; E11.22 Type 2 diabetes mellitus with diabetic chronic kidney disease; Z79.4 Long term (current) use of insulin; E11.65 Type 2 diabetes mellitus with hyperglycemia; I12.9 Hypertensive chronic kidney disease with stage 1 through stage 4 chronic kidney disease, or unspecified chronic kidney disease; N18.9 Chronic kidney disease, unspecified; E66.9 Obesity, unspecified; R62.7 Adult failure to thrive; Z79.01 Long term (current) use of anticoagulants; Z68.34 Body mass index [BMI] 34.0-34.9, adult; G89.4 Chronic pain syndrome; Z79.52 Long term (current) use of systemic steroids
CPT/HCPCS: 36415; 71046; 71275; 80048; 82962; 83880; 84145; 84484; 85025; 87070; 87205; 87428; 87449; 93005; 94667; 94668; 97110; 97116; 97162; 97166; 97530; 97535; 97802; 99285; J7040; Q9967; A4216; J1940

== ENCOUNTER → 2022-12-11 | Outpatient (CLI) | payer MEDICARE, SELFPAY ==
[2022-12-12 19:50] LABS: ANTINUCLEAR ANTIBODIES DIRECT Negative (Negative)
[2022-12-15 16:08] LABS: Cytoplasmic Ab (C-ANCA) >1:640 titer (Neg:<1:20)
[2022-12-15 21:05] LABS: CCP IgG Antibodies 3 units (0-19); Perinuclear Ab (P-ANCA) <1:20 titer (Neg:<1:20)
== END | disposition home or self-care (01) ==
LOC: PAVLAB 09:17
PROVIDERS: PCP Family Medicine; Referring Provider Nurse Practitioner Acute Care; Visit Provider Nurse Practitioner Acute Care
DX: J84.10 Pulmonary fibrosis, unspecified (principal)
CPT/HCPCS: 36415; 86038; 86200; 86225; 86235; 86256; 86431

== ENCOUNTER → 2022-12-26 | Outpatient (CLI) | payer MEDICARE, SELFPAY ==
[2022-12-26 13:55] LABS: Anion Gap 7 (5-15); BUN 25 mg/dL (7-18); BUN/Creat Ratio 15.9 RATIO (10-20); Chloride 100 mmol/L (98-107); Creatinine, Serum 1.57 mg/dL (0.70-1.30); EST Glomerular Filtration Rate 46 mL/min (>60); Est Glom Filt Rate - Afr Amer 56 mL/min (>60); Glucose 288 mg/dL (74-106); Potassium 4.2 mmol/L (3.5-5.1); Sodium Level 136 mmol/L (136-145)
== END | disposition home or self-care (01) ==
LOC: LAB 12:51
PROVIDERS: PCP Family Medicine; Referring Provider Nurse Practitioner Family; Visit Provider Nurse Practitioner Family
DX: N18.9 Chronic kidney disease, unspecified (principal)
CPT/HCPCS: 36415; 80048

== ENCOUNTER → 2022-12-30 | Outpatient (CLI) | payer MEDICARE, SELFPAY ==
--- NOTE | 2022-12-30 15:07 | PFTCOMP ---
COMPLETE PULMONARY FUNCTION TEST INTERPRETATION Brief HPI: Patient is a 72-year-old male, currently under the care of Violet Whitney, who presents to [facility] for complete pulmonary function tests secondary to diagnosis of pulmonary fibrosis. Respiratory therapist reports good effort and reproducible results. Interpretation: Forced expiration spirometry shows no large airways obstructive ventilatory defect with an FEV1 of 46% predicted. There is no significant bronchodilator response by strict ATS criteria. Spirograms are of poor quality and show exhalation for only 1 to 3 seconds, likely underestimating FVC. The respiratory flow volume loop shows a normal pattern. Lung volumes by body plethysmography show a severely reduced total lung capacity at 3.66 L, 56% predicted. FRC and RV are elevated out of proportion. Lung volume measurements are consistent with air-trapping. Diffusion capacity by carbon monoxide is decreased at 42% predicted. The airway resistance is normal. No previous pulmonary function tests were available for review. Impression: Irreversible severe restrictive ventilatory defect with a symmetric reduction diffusing capacity. There is some subtle signs of concomitant obstruction that do not meet clinical significance.
== END | disposition home or self-care (01) ==
LOC: PSN 09:22
PROVIDERS: PCP Family Medicine; Referring Provider Nurse Practitioner Acute Care; Visit Provider Nurse Practitioner Acute Care
DX: J84.10 Pulmonary fibrosis, unspecified (principal)
CPT/HCPCS: 94010; 94060; 94726; 94729

== ENCOUNTER 2023-01-18 10:44 | Inpatient (IN) | payer MEDICARE, SELFPAY ==
[2023-01-18] VITALS (19 sets, daily range): BP systolic 104–146; BP diastolic 71–86; PULSE 98–120; RESP 12–34; TEMP 36.9–37.1; O2SAT 95–99; BMI 33.2; BMI 33.4
--- NOTE | 2023-01-18 10:59 | RAD_ITS ---
STUDY: X-RAY CHEST REASON FOR EXAM: Male, 72 years old. Chest pain TECHNIQUE: Single AP portable view of the chest. COMPARISON: November 30, 2022 FINDINGS: There are monitoring devices. There are moderate interstitial septal and groundglass increased opacities of the lungs. There is no demonstrated pleural abnormality. There is moderate cardiac enlargement. Normal mediastinum and skylar. Normal visualized pulmonary arteries. Normal visualized aortic arch and descending thoracic aorta. Normal visualized thoracic spine. Normal visualized ribs, clavicles, and shoulders. There is no demonstrated abnormality of the visualized soft tissue structures of the upper abdomen. RAD/Chest 1 View (Portable) IMPRESSION: Bilateral edema or pneumonia and pleural effusions. Electronically Signed: Stepan Marino MD at 12:12 EDT ,
--- NOTE | 2023-01-18 10:59 | EKG12_ITS ---
Test Reason : Blood Pressure : / mmHG Vent. Rate : 119 BPM Atrial Rate : 119 BPM P-R Int : 190 ms QRS Dur : 104 ms QT Int : 302 ms P-R-T Axes : 004 -10 013 degrees QTc Int : 424 ms Sinus tachycardia Inferior infarct , age undetermined Anterior infarct , age undetermined Abnormal ECG Confirmed by EVELINE GIBSON, PAOLA ([id number]), technical writer and editor SHERMAN TAMAYO ([id number]) on 01/21/2023 10:02:44 AM Referred By: Confirmed By:HERON MOSQUERA MD
--- NOTE | 2023-01-18 11:00 | ED.VIS.DYS ---
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 He states this is a recent diagnosis. He states this morning he started feeling short of breath. He typically wears about 5 L at baseline when he is not ambulating and 6 to 7 L when he is ambulating. He states he is more short of breath than usual. He denies a fever but states he feels cold. He also reports that his has a cold at home. Patient presents with more coughing today. Patient states it hurts in his chest when he coughs. He has no chest pain otherwise. Patient anticoagulated on Xarelto. [facility] Medical History Bilateral pulmonary infiltrates on chest x-ray Blood clotting factor deficiency disorder Chronic kidney disease Chronic respiratory failure Current use of shelter anticoagulation Essential (primary) hypertension Gastric ulcer Hiatal hernia History of pulmonary embolus (PE) LV non-compaction cardiomyopathy Multifocal pneumonia Nonischemic cardiomyopathy Obesity Obstructive sleep apnea Pulmonary fibrosis Type 2 diabetes mellitus Home Medications telmisartan 80 mg tablet 80 mg PO DAILY blood pressure 11/03/19 [History Last Taken 01/17/23] amlodipine 5 mg tablet 5 mg PO DAILY #90 tabs 05/26/22 [Rx Last Taken 01/17/23] dapagliflozin 10 mg tablet (Farxiga) 10 mg PO DAILY diabetes 05/26/22 [History Last Taken 01/17/23] insulin degludec 100 unit/mL (3 mL) subcutaneous pen (Tresiba FlexTouch U-100 insulin) 16 unit subcut [facility] diabetes 05/26/22 [History Last Taken 01/17/23] metoprolol succinate 50 mg tablet,extended release 24 hr (Toprol XL) 50 mg PO DAILY #90 tabs 05/26/22 [Rx Last Taken 01/17/23] rivaroxaban 10 mg tablet (Xarelto) 10 mg PO DAILY blood thinner 05/26/22 [History Last Taken 01/17/23] dextromethorphan-guaifenesin 30 mg-600 mg tablet extended dglihif20 hr (Mucinex DM) 2 tab PO BID 7 days #28 tabs 12/04/22 [Rx Last Taken 01/17/23] furosemide 40 mg tablet 40 mg PO BIDLX 30 days #60 tabs 12/04/22 [Rx Last Taken 01/17/23] insulin lispro 100 unit/mL subcutaneous pen (Humalog KwikPen (U-100) Insulin) 12 unit (0.12 mL) subcut TIDCM #15 mL 12/04/22 [Rx Last Taken 01/17/23] ipratropium 0.5 mg-albuterol 3 mg (2.5 mg base)/3 mL nebulization soln 3 ml inhalation Q4H PRN shortness of breath or wheezing #180 mL 12/04/22 [Rx Last Taken 01/18/23 09:30] diphenhydramine 25 mg-acetaminophen 500 mg tablet (Tylenol PM Extra Strength) 1 tab PO QHS PRN Sleep 01/18/23 [History Last Taken 01/17/23] docusate sodium 100 mg capsule (Colace) 100 mg PO QHS CONSTIPATION 01/18/23 [History Last Taken 01/17/23] semaglutide 2 mg/dose (8 mg/3 mL) subcutaneous pen injector (Ozempic) 2 mg subcut TU DM 01/18/23 [History Last Taken 01/13/23] Allergy/AdvReac Type Severity Reaction Status Date / Time Penicillins Allergy Unknown unknown Verified 01/18/23 10:50 coffee (Coffea arabica) Allergy vomiting Verified 01/18/23 10:50 Family History Father , age 72 Myocardial infarction CAD (coronary artery disease) Mother , age 73 Cancer Brother , age 27 from AAA Abdominal aortic aneurysm rupture Sister , 54 Breast cancer Surgical History History of laminectomy (12/2021) History of Filemon fundoplication History of open reduction and internal fixation (ORIF) procedure History of right and left heart catheterization (09/1997) Hx of cholecystectomy Social History Smoking Status: Never smoker ROS ROS ED Constitutional Constitutional ED: Reports chills; Denies fever(s) Eyes Eyes: Denies change in vision or diplopia ENT ENT ED: Denies rhinorrhea or sore throat Cardiovascular Cardiovascular: Reports chest pain EXAM Physical Exam Const Vital Signs: 01/18/23 10:45 01/18/23 10:51 01/18/23 11:06 Temperature 98.4 F Temperature Source Temporal Pulse Rate 120 H Respiratory Rate 32 H Respiratory Effort Respiratory Depth Respiratory Pattern Blood Pressure 130/74 H Blood Pressure Mean 92 Pulse Ox 98 97 95 Oxygen Delivery Method Non-Rebreather Nasal Cannula Nasal Cannula Oxygen Flow Rate (L/min) 6 4 01/18/23 12:01 01/18/23 12:26 01/18/23 13:02 Temperature 98.4 F Temperature Source Temporal Pulse Rate 116 H 112 H Respiratory Rate 30 H 25 H Respiratory Effort Short of Breath Respiratory Depth Shallow Respiratory Pattern Tachypnea Blood Pressure 126/86 H 130/81 H Blood Pressure Mean 99 97 Pulse Ox 98 96 Oxygen Delivery Method Nasal Cannula Nasal Cannula Nasal Cannula Oxygen Flow Rate (L/min) 4 5 5 Positive well nourished Constitutional Narrative: Appears dyspneic General Appearance ED: NAD HEENT Reports moist mucous membranes Eyes PERRL and EOMs intact bilaterally General Eye ED: Negative for pale conjunctiva or scleral icterus Resp Resp Narrative: Tachypneic. Bibasilar crackles. Cardio regular rhythm Rate: tachycardic GI non-tender Extremity normal to inspection Neuro oriented x3 and CN's II-XII intact bilaterally Sensorium / Orientation: alert Psych Mood & Affect: anxious MDM MDM MDM Narrative Medical decision making narrative: Patient presenting with shortness of breath and cough. This is a chronic issue. He is hypoxic however when he ambulates. He appears to be very dyspneic. He states that he does have pain in his chest when he coughs but is not pain otherwise. I do not believe this is cardiac but we will obtain an EKG and high-sensitivity troponin to ensure that this. EKG is sinus tachycardia at a rate of 119 bpm without sign of ischemic change. Chest x-ray looks similar to previous and does look like he has pneumonia, however he does not have an elevated white blood cell count. His hemoglobin monitor stable. Platelets are normal. Renal function is at baseline. Potassium slightly low at 3.3. High-sensitivity troponin less than 3 initially and his delta troponin is 4 to the chest pain he is having when he coughs is not cardiac in nature apparently. Patient is on Xarelto so I below suspicion for PE. Patient does desaturate when he walks but this is a chronic issue. He and his expressed concern that he needs more care than she can give and request admission for placement into a half-way. Discussed with hospitalist for admission. Impression: 1. Hypoxia 2. Chest pain 3. Debility Lab Data Labs: Laboratory Results - last 24 hr 01/18/23 01/18/23 01/18/23 10:57 10:57 13:30 WBC 10.8 RBC 5.25 Hgb 15.3 Hct 47.1 MCV 89.7 MCH 29.1 MCHC 32.5 RDW Std Deviation 48.1 H RDW Coeff of Clay 14.6 Plt Count 233 MPV 9.4 Immature Gran % (Auto) 0.900 Neut % (Auto) 81.6 H Lymph % (Auto) 8.9 L [place] % (Auto) 6.0 Eos % (Auto) 1.8 Baso % (Auto) 0.8 Absolute Neuts (auto) 8.8 H Absolute Lymphs (auto) 0.96 Nucleated RBC % 0 Sodium 136 Potassium 3.3 L Chloride 99 Carbon Dioxide 29.0 Anion Gap 8 BUN 18 Creatinine 1.48 H Estim Creat Clear Calc 47.27 Est GFR (MDRD) Af Amer 60 Est GFR (MDRD) Non-Af 50 L BUN/Creatinine Ratio 12.2 Glucose 212 H Calcium 9.5 Troponin I High Sens < 3 L 4 Radiography Diagnostic Testing: Clinical Impression(s) from Imaging Studies Chest X-Ray 01/18/23 10:59 IMPRESSION: Bilateral edema or pneumonia and pleural effusions. Electronically Signed: Stepan Marino MD at 12:12 EDT , Discharge Plan Triage Chief Complaint: Shortness of Breath ED Provider: Vel White Dx/Rx/DC Orders Primary Care Provider: Timothy Diana
[2023-01-18 11:21] LABS: Absolute Lymphocyte Count 0.96 X10^3/uL (0.83-4.51); Absolute Neutrophil Count 8.8 X10^3/uL (2.0-7.7); Basophil# 0.09 X10^3/uL; Basophil% 0.8 % (0-1); Eosinophil# 0.19 X10^3/uL; Eosinophils% 1.8 % (0-5); Hematocrit 47.1 % (40-54); Hemoglobin 15.3 g/dL (13.0-16.5); Lymphocyte # 0.96 X10^3/ul (0.83-4.51); Lymphocyte % 8.9 % (19-41); Mean Corp Hgb Conc 32.5 g/dL (32-36); Mean Corpuscular Hgb 29.1 pg (27.0-32.0); Mean Corpuscular Volume 89.7 fL (80-94); Mean Platelet Vol. 9.4 fl (6.2-12.0); Monocyte# 0.65 X10^3/uL; NRBC Flagged by Analyzer 0 % (0-5); Neutrophil # 8.78 X10^3/uL (2.7-7.7); Neutrophil % 81.6 % (47-70); Platelet Count 233 K/mm3 (150-450); RBC Distribution Width CV 14.6 % (11.6-14.6); RBC Distribution Width SD 48.1 fl (35.1-43.9); Red Blood Count 5.25 M/mm3 (4.6-6.2); White Blood Count 10.8 K/mm3 (4.4-11.0)
[2023-01-18 11:29] LABS: Anion Gap 8 (5-15); BUN 18 mg/dL (7-18); BUN/Creat Ratio 12.2 RATIO (10-20); Calcium,Total 9.5 mg/dL (8.5-10.1); Chloride 99 mmol/L (98-107); Creatinine, Serum 1.48 mg/dL (0.70-1.30); EST Glomerular Filtration Rate 50 mL/min (>60); Est Glom Filt Rate - Afr Amer 60 mL/min (>60); Estimated Creatinine Clearance 47.27 ml/min; Glucose 212 mg/dL (74-106); Potassium 3.3 mmol/L (3.5-5.1); Sodium Level 136 mmol/L (136-145); Troponin-I HS (w/2H Reflex) < 3 pg/mL (3.0-78.0)
--- NOTE | 2023-01-18 12:27 | ED.RN ---
RN AMBULATED THIS PT ON HIS HOME O2 REQUIREMENTS OF 6-7L NC WITH ACTIVITY. RN DID ON 6L AND PATIENT MAINTAINED SP02 AT 82%. PT STATES BASELINE SP02 LEVEL WITH ACTIVITY IS LOW 80'S-70'S. DR PRYOR NOTIFIED
[2023-01-18 13:09] LABS: Reflex Troponin-HS? (from REC) Y
--- NOTE | 2023-01-18 13:33 | PCM.HP.STD ---
HPI - General General Date of Admission: 01/18/23 Date of Service: 01/18/23 Chief Complaint: Increased cough HPI Narrative KALYANI MCKENZIE, is a 72 M with history of Yoel's granulomatosis and chronic hypoxic respiratory failure on 4 L home O2 at night and 5 at rest with 6 to 8 L required for any amount of movement, type 2 diabetes mellitus, nonischemic cardiomyopathy, CKD stage IIIb, hypertension who presented to [facility] 01/18/2023 with increased cough on top of his chronic hypoxic respiratory failure. In the ED he reported he was using his baseline oxygen that he just felt unwell and weak and wanted to be placed somewhere and did not think he could go home. 96% on 5 L O2, respiratory rate low 20s, heart rate 1 teens, blood pressure 130/81. COVID-negative. Creatinine 1.48 and last month was 1.57. Troponin negative, EKG sinus tach at 119. Hospitalist consulted for admission. Went to evaluate patient he did report he wears 4 L of O2 at night, 5 during the day and then between 6 and 8 on ambulation but he can still only walk about 20 feet without starting to feel like he is becoming hypoxic and his head gets foggy and he gets double vision. He said he feels his breathing is at baseline the family member at bedside said she thinks it might of worsened slightly yesterday. He reports brought him in today as he had been coughing, had coughed up some white and clear secretions and said that he does usually cough but this was more coughing than usual and it made the lower part of his chest wall hurt with the amount he was coughing. Denies any hemoptysis. Does have a slight sore throat. Reports his has a cold and when asked she said she has the sniffles. Has felt some chills though no noted fever. Reports he is frustrated feeling like this and he just does not want to feel like he is drowning when he is trying to breathe anymore but said he does want to get better. He was supposed to follow with rheumatology as an outpatient for his diagnosis of Yoel's but first appointment was canceled, pending re-referral. He does follow with Dr. Valdez and had PFTs last month which showed irreversible severe restrictive ventilatory defect with symmetric reduction diffusing capacity. He had appointment with him 01/15/2023 when we referred him to rheumatology for initiation of therapy. He had had a CT that was reviewed that showed advanced fibrotic changes and bronchiectasis. 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 Essential (primary) hypertension Gastric ulcer Hiatal hernia History of pulmonary embolus (PE) LV non-compaction cardiomyopathy Multifocal pneumonia Nonischemic cardiomyopathy Obesity Obstructive sleep apnea Pulmonary fibrosis Type 2 diabetes mellitus Home Medications telmisartan 80 mg tablet 80 mg PO DAILY blood pressure 11/03/19 [History Last Taken 01/17/23] amlodipine 5 mg tablet 5 mg PO DAILY #90 tabs 05/26/22 [Rx Last Taken 01/17/23] dapagliflozin 10 mg tablet (Farxiga) 10 mg PO DAILY diabetes 05/26/22 [History Last Taken 01/17/23] insulin degludec 100 unit/mL (3 mL) subcutaneous pen (Tresiba FlexTouch U-100 insulin) 16 unit subcut [facility] diabetes 05/26/22 [History Last Taken 01/17/23] metoprolol succinate 50 mg tablet,extended release 24 hr (Toprol XL) 50 mg PO DAILY #90 tabs 05/26/22 [Rx Last Taken 01/17/23] rivaroxaban 10 mg tablet (Xarelto) 10 mg PO DAILY blood thinner 05/26/22 [History Last Taken 01/17/23] dextromethorphan-guaifenesin 30 mg-600 mg tablet extended qojurdm75 hr (Mucinex DM) 2 tab PO BID 7 days #28 tabs 12/04/22 [Rx Last Taken 01/17/23] furosemide 40 mg tablet 40 mg PO BIDLX 30 days #60 tabs 12/04/22 [Rx Last Taken 01/17/23] insulin lispro 100 unit/mL subcutaneous pen (Humalog KwikPen (U-100) Insulin) 12 unit (0.12 mL) subcut TIDCM #15 mL 12/04/22 [Rx Last Taken 01/17/23] ipratropium 0.5 mg-albuterol 3 mg (2.5 mg base)/3 mL nebulization soln 3 ml inhalation Q4H PRN shortness of breath or wheezing #180 mL 12/04/22 [Rx Last Taken 01/18/23 09:30] diphenhydramine 25 mg-acetaminophen 500 mg tablet (Tylenol PM Extra Strength) 1 tab PO QHS PRN Sleep 01/18/23 [History Last Taken 01/17/23] docusate sodium 100 mg capsule (Colace) 100 mg PO QHS CONSTIPATION 01/18/23 [History Last Taken 01/17/23] semaglutide 2 mg/dose (8 mg/3 mL) subcutaneous pen injector (Ozempic) 2 mg subcut TU DM 01/18/23 [History Last Taken 01/13/23] Allergy/AdvReac Type Severity Reaction Status Date / Time Penicillins Allergy Unknown unknown Verified 01/18/23 10:50 coffee (Coffea arabica) Allergy vomiting Verified 01/18/23 10:50 Family History Father , age 72 Myocardial infarction CAD (coronary artery disease) Mother , age 73 Cancer Brother , age 27 from AAA Abdominal aortic aneurysm rupture Sister , 54 Breast cancer Surgical History History of laminectomy (12/2021) History of Filemon fundoplication History of open reduction and internal fixation (ORIF) procedure History of right and left heart catheterization (09/1997) Hx of cholecystectomy Social History Smoking Status: Never smoker ROS ROS Narrative General: Possibly some chills HENT: Denies headache, denies stuffy nose, sore throat EYES: Denies changes in vision at this time but says he gets double vision when he is hypoxic Resp: Has had more frequent cough this past day that is made the lower part of his chest wall ache and has white or clear sputum which she reports he does routinely but not this frequent, he does not note any significant increase in shortness of breath but family member at bedside feels like he has Cardiac: Lower chest wall pain but denies any substernal pain GI: Denies abdominal pain, denies changes in bowel, denies nausea/vomiting : Has had some urinary hesitancy over several months Extremity: Denies swelling MSK: Generalized weakness Neuro: Denies any numbness/tingling Heme: Denies any bleeding or bruising Skin: Denies rashes Psychiatric: Anxious and frustrated Vital Signs Vital Signs Vital Signs: 01/18/23 10:45 01/18/23 10:51 01/18/23 11:06 Temperature 98.4 F Temperature Source Temporal Pulse Rate 120 H Respiratory Rate 32 H Respiratory Effort Respiratory Depth Respiratory Pattern Blood Pressure 130/74 H Blood Pressure Mean 92 Pulse Ox 98 97 95 Oxygen Delivery Method Non-Rebreather Nasal Cannula Nasal Cannula Oxygen Flow Rate (L/min) 6 4 01/18/23 12:01 01/18/23 12:26 01/18/23 13:02 Temperature 98.4 F Temperature Source Temporal Pulse Rate 116 H 112 H Respiratory Rate 30 H 25 H Respiratory Effort Short of Breath Respiratory Depth Shallow Respiratory Pattern Tachypnea Blood Pressure 126/86 H 130/81 H Blood Pressure Mean 99 97 Pulse Ox 98 96 Oxygen Delivery Method Nasal Cannula Nasal Cannula Nasal Cannula Oxygen Flow Rate (L/min) 4 5 5 Weight Weight: 105 kg Body Mass Index (BMI) 33.2 Physical Exam Narrative General: Alert, oriented, appears anxious HEENT: Atraumatic, normocephalic Eyes: Anicteric, normal conjunctiva, extraocular movements grossly intact Neck: Supple Respiratory: Coarse diffusely, somewhat increased respiratory effort Cardiovascular: Sinus tach GI: Soft, nontender, nondistended Extremities: No edema Musculoskeletal: Moving all extremities Neuro: No overt focal neurological deficits Skin: No rashes appreciated Psych: Tearful Results Lab / Micro Data Result Diagrams: 01/18/23 10:57 01/18/23 10:57 Labs: Laboratory Results - last 24 hr 01/18/23 10:57: WBC 10.8, RBC 5.25, Hgb 15.3, Hct 47.1, MCV 89.7, MCH 29.1, MCHC 32.5, RDW Std Deviation 48.1 H, RDW Coeff of Clay 14.6, Plt Count 233, MPV 9.4, Immature Gran % (Auto) 0.900, Neut % (Auto) 81.6 H, Lymph % (Auto) 8.9 L, Cuming % (Auto) 6.0, Eos % (Auto) 1.8, Baso % (Auto) 0.8, Absolute Neuts (auto) 8.8 H, Absolute Lymphs (auto) 0.96, Nucleated RBC % 0 01/18/23 10:57: Sodium 136, Potassium 3.3 L, Chloride 99, Carbon Dioxide 29.0, Anion Gap 8, BUN 18, Creatinine 1.48 H, Estim Creat Clear Calc 47.27, Est GFR (MDRD) Af Amer 60, Est GFR (MDRD) Non-Af 50 L, BUN/Creatinine Ratio 12.2, Glucose 212 H, Calcium 9.5, Troponin I High Sens < 3 L Micro: Microbiology 01/18/23 10:57 Nasal Secretion SARS-CoV-2 & FLU Antigen (Rapid) - Final Radiology Impression Chest X-Ray 01/18/23 10:59 IMPRESSION: Bilateral edema or pneumonia and pleural effusions. Electronically Signed: Stepan Marino MD at 12:12 EDT , Assessment & Plan Assessment/Plan (1) Chronic respiratory failure with hypoxia, on home O2 therapy: (2) Pulmonary fibrosis: (3) Granulomatosis with polyangiitis: (4) Nonischemic cardiomyopathy: PLAN: Plan #(?Acute on) Severe chronic hypoxic respiratory failure 2/2 granulomatosis w/ polyangiitis and pulmonary fibrosis on 4 L home O2 at night and 5 at rest with 6 to 8 L required for any amount of movement -Patient reports being on his home O2, he was ambulated in the ED and dropped to 82% on 6L but reported needing to go up to 8 for even minimal activity, difficult to assess if this is new acute hypoxia or just the severity of his baseline lung function. -Complete PFT (12/30/2022): Irreversible severe restrictive ventilatory defect with symmetric reduction diffusion capacity.? There is some subtle signs of obstruction that do not meet clinical significance (FVC 35%, FEV1 46%, TLC 56%, RV 84%, DLCO 42%) -Chest x-ray in the ED bilateral edema or pneumonia and pleural effusions -Obtain ABG and placed on BiPAP due to work of breathing -Daily weights, I's and O's -Incentive spirometry -DuoNebs, albuterol as needed -We will consult pulmonology -EKG is sinus tachycardia at a rate of 119 bpm without sign of ischemic change -Trop negative -We will obtain Noncon CT of the chest to establish a more lungs currently are in the event that he worsens to verify no large effusions or other obvious abnormalities, hesitant to give him any dye given kidney function and would not want to give him any hydration due to concerns for fluid overload -Resp panel -Cannot rule out pneumonia and will treat empirically pending cultures and studies returning as failure to identify pneumonia with his very poor lung function at baseline could be detrimental -Pending current pending results we will decide on giving steroids, patient primarily came in because of cough and reports he feels like his breathing is similar to baseline but he was 82% on 6 L with ambulation though notes he needs up to 8 and that he has severely reduced exercise capacity, and after obtaining history concerned that he does get hypoxic with pretty much any movement or ambulation -Case management consulted -We will also obtain Pro-Dong for de-escalation purposes -BNP ordered, will also obtain echocardiogram -We will change his Lasix to IV, currently reported taking 40 twice daily -Verified with patient with family member in the room and when asked CODE STATUS he did not want chest compressions or CPR/wanted to be DNR. Asked about intubation and he elected to be DNI and said if he dies just to let him go. #granulomatosis w/ polyangiitis -Autoimmune work-up (12/11/2022): RUCHI, RF, CCP, and p-ANCA are all within normal limits.? C-ANCA antibodies are elevated at greater than 1:640 -Has urgent rheum referral pending outpatient #Nonischemic cardiomyopathy -Last echo in 2018 with an EF of 40% and mild left global ventricular systolic dysfunction with mild global hypokinesis, will repeat #Type 2 diabetes mellitus -Glucose checks and sliding scale insulin -We will start with much lower dose of glargine and can escalate as tolerated #CKD stage IIIb -Avoid nephrotoxic agents -Appears to be at baseline #Hx of VTE per documentation -On Xarelto #DVT ppx: Adenikerelto Patti Turner MD Time spent in the patient's overall evaluation,decision-making process, review of diagnostic data, adjustment of management, discussion with other providers, nursing nursing and ancillary staff involved in patient's care documentation, 60 minutes Charges/Coding Visit Charges Inpatient E&M: 14578 Init Hosp L2
--- NOTE | 2023-01-18 13:50 | CT_ITS ---
STUDY: CT Chest W/O Contrast Injection 01/18/2023 4:24 PM REASON FOR EXAM: Male, 72 years old. SOB Individualized dose optimization techniques were used for this CT. TECHNIQUE: Transaxial imaging was performed withoutIV contrast material. COMPARISON: 11.30.22. FINDINGS: There are degenerative changes of the shoulders. There is no pneumothorax. There is no demonstrated pleural abnormality. Pulmonary fibrosis increased since previous exam. Healed sternal fracture. There are calcifications of the coronary arteries. Normal mediastinum. Normal hilar regions. Normal pulmonary arteries. There is atherosclerotic calcification of the aortic arch with tortuosity and elongation of the aortic arch and descending thoracic aorta. There are multi-level degenerative changes of the thoracic spine. Stable multilevel compression deformities in the thoracic spine. There is a small hiatal hernia. The gallbladder is surgically absent. CT/Chest without Contrast IMPRESSION: Pulmonary fibrosis increased since previous exam. There are no acute findings. Electronically Signed: Osmar Jaeger MD at 16:27 EDT ,
[2023-01-18 13:55] LABS: Troponin-I HS 4 pg/mL (3.0-78.0)
[2023-01-18 14:18] LABS: BNP,B-Type NATRIURETIC PEPTIDE 22.2 pg/mL (0-100)
--- NOTE | 2023-01-18 14:45 | ECHOD_ITS ---
Reason For Study: CHF Procedure This was a 2D Doppler, Color Flow transthoracic echocardiogram. The study was technically difficult. Patient scenned sitting up due to being unable to breathe. Exam performed portable in patient room. Left Ventricle Normal LV size. The estimated ejection fraction is 55 %. Normal diastololic function. No regional wall motion abnormalities noted. Right Ventricle Normal RV size. Normal systolic function. Atria Normal left atrium. Normal right atrium. No doppler evidence for ASD. Mitral Valve There is no mitral valve stenosis. No mitral valve insufficiency. Tricuspid Valve There is no tricuspid stenosis. No tricuspid valve insufficiency. Aortic Valve Trisinus/trileaflet aortic valve. Aortic sclerosis, no stenosis. There is no aortic stenosis. No aortic valve insufficiency. Pulmonic Valve There is no pulmonic valvular stenosis. No pulmonic valve insufficiency. Great Vessels Normal aortic root. Pericardium/Pleural No pericardial effusion. MMode/2D Measurements & Calculations LVIDd: 4.6 cm IVSd: 1.2 cm LA dimension(2D): 4.2 cm LVIDs: 4.1 cm LVPWd: 1.1 cm FS: 11.4 % Doppler Measurements & Calculations MV E max hesham: 48.8 cm/sec Lat Peak E' Hesham: 6.9 cm/sec Med Peak E' Hesham: 5.3 cm/sec MV A max hesham: 74.7 cm/sec E/E' lat: 7.1 E/E' med: 9.1 MV E/A: 0.65 Ao V2 max: 107.0 cm/sec LV V1 max: 59.2 cm/sec Ao max P.6 mmHg LV V1 max P.4 mmHg Ao V2 mean: 73.9 cm/sec LV V1 mean P.72 mmHg Ao mean P.5 mmHg LV V1 mean: 39.3 cm/sec Ao V2 VTI: 17.2 cm LV V1 VTI: 9.6 cm AV (velocity ratio): 0.56 ECHO/Echo Complete Interpretation Summary The estimated ejection fraction is 55 %. Aortic sclerosis, no stenosis. Ordering Physician: Patti Turner Referring Physician: LUIS FELIPE RALPH Performed By: Betsy Olvera RCS
[2023-01-18 14:51] LABS: Procalcitonin 0.17 ng/mL (0.00-0.09)
[2023-01-18 15:20] LABS: Allen Test Positive; Base Excess 2 mmol/L (-2 to +2); Bicarbonate 26.2 mmol/L (22-26); Blood Gas Specimen Type ART; FI02 40; Mode BiLevel; O2 Delivery Device BiPAP; PO2 116 mmHG (75-100); RR 12; SITE L Radial; SO2 99 % (95-99); Total Carbon Dioxide 27 mmol/L; pCO2 38.5 mmHg (35-45); pH 7.44 (7.35-7.45)
[2023-01-18 16:25] LABS: Bedside Glucose 150 mg/dL (74-106)
[2023-01-18] MEDS: Insulin Lispro 100 UNIT/ML INSULN.PEN SC ×2 (16:36→21:55)
[2023-01-18] MEDS: levoFLOXacin IV 750 MG/150 ML BAG 100 MG IV (16:36)
[2023-01-18] MEDS: Potassium Chloride 10mEq/100mL 10 MEQ/100 ML IV.SOLN. 100 MEQ IV BOLUS ×2 (16:36→18:16)
--- NOTE | 2023-01-18 17:59 | CON.PCM.CC_ITS ---
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 It has progressed significantly since [address] of the chest for showed peripheral fibrotic changes.? Yoel's is associated with HLA?DPA 1 and DPB1, supima 1 (gene site for A1AT), and proteinase 3 (AL-3) gene. ?Risk factors for exacerbations of GPA include Staph aureus infections and silica dust exposure, and for p-ANCA include hydralazine PTU and levamisole exposure. This is a life-threatening exacerbation, and should have a remission induction therapy as tolerated.? He should have pneumocystis prophylaxis as well as osteoporosis prophylaxis and be up-to-date with his immunizations. 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 ?2020 guidelines of the [place] [employer] recommendations for induction of remission and life-threatening flare of GPA using rituximab over cyclophosphamide, and reduced dose of glucocorticoids for 1 month, followed by use of secondary medications in r emission maintenance therapy including methotrexate, azathioprine, leflunomide. ?(mycophenolate mofetil use has declined because of association with rapid recurrence).? Plasma exchange is no longer recommended unless anti-GBM is also positive. New immunotherapy induction therapy for ANCA associated vasculitis is the anti- C5 a receptor inhibitor AVACOPAN 30 mg twice daily with or without prednisone reported in [place] [employer] and 2020, and found to be noninferior to predn isone with less side effects.. 2.? Rule out type II STEMI due to recurrent and prolonged hypoxemia, check troponin and recheck echocardiogram, he has known diastolic dysfunction so may have some improvement with diuresis.? Monitor kidney function closely (his Yoel's has a history of no associated renal dysfunction thus far) 3.? Bed rest, and maintain O2 saturation greater than 92% at all times, using noninvasive ventilation as necessary to minimize cardiac strain Send anti-AL-3 and anti-MPO to help verify Yoel's granulomatosis versus microscopic polyangiitis, and alpha-1 antitrypsin since it is associated with GPA and potentially treatable.? Eosinophil counts and anti-GBM help distinguish it from MPO type P ANCA fibrosis and GBM disease.? He should have a baseline serum IgG if rituximab will be used, and alpha-1 antitrypsin level.? Sinus CT is also recommended.? A granulomatous biopsy is no longer needed for diagnosis according to the ACR guidelines, but compatible (?matched AL-3 MPO) serology and consistent clinical presentation are necessary. Pulmonary will follow with you in AM.? He will need special arrangement for rituximab or cyclophosphamide, and possibly AVACOPAN, which are not available on our formulary. He will likely need transfer for induction therapy.? HPI Consult Data Date of Consult: 01/18/23 HPI Narrative Reason for Consultation: Acute on chronic hypoxic respiratory failure, with rapidly cANCA fibrosis HPI Narrative: KALYANI MCKENZIE, is a 72 M who presents with rapidly progressive pulmonary fibrosis, established on serial CT scans of the chest in 2017, November 2022, and today. He has diastolic CHF with ejection fraction of 45% and echocardiogram 2020, which did not show pulmonary hypertension. He has been on escalating home oxygen doses, followed by Dr. Valdez. He was hospitalized in November and seen in the office as recently as January 15 and has continued to go downhill. Despite 4 to 5 L of oxygen at rest and 6-8 with exertion, he and his stated on his office visit with Dr. Valdez on January 15 that his saturations ranged between 70% with standing up to 90% at rest. He can only walk 20 feet. His autoimmune work-up by Dr. Valdez December 11, 2022 had a positive c-ANCA at 1:640, and negative RUCHI rheumatoid factor CCP and P ANCA.? His BMI at the office visit was 33, weight 104 kg.? O2 saturation at rest was 99% on 5 L.? His DME nidhi nahomi is [employer] for oxygen and CPAP for obstructive sleep apnea. This is consistent with a life-threatening flare of granulomatosis with polyangiitis (GPA, recently known as Yoel's granulomatosis), unresponsive to steroids alone. The remainder of the work-up is recommended in the plan section. There may also be an acute cardiac ischemic/CHF component considering his recent severe hypoxemia, and should be worked up and mitigated immediately. He needs urgent GPA remission induction therapy if he can tolerate it. He has been on prednisone since November, and needs to be prophylaxed for osteoporosis and Pneumocystis carinii. His symptoms now do not seem consistent with acute bacterial infection, although anything is possible after over 1 month on steroid therapy. He would like to do what is possible, and feels that he is drowning, but does not want intubation or resuscitation. His CT scan is severely fibrotic, with no barotrauma and he is appropriately on BiPAP now and supplemental oxygen. He has no fevers chills sweats nausea vomiting aspiration. His renal function is reportedly normal, I do not think he had a sinus work-up. There is no family history of pulmonary fibrosis. His pulmonary function testing recently is consistent with a DLCO 45% predicted, moderately reduced lung volumes, hyperinflation, and no clear evidence of airway obstruction with no bronchodilator response. This is also consistent with pulmonary fibrosis. Eosinophils are negative, which rules out EGPA. (Eosinophilic granulomatosis with polyangiitis) is unlikely to be Goodpasture's anti-GBM disease, and unlikely to be another pulmonary small vasculitic disease called microscopic polyangiitis (P ANCA disease, myeloperoxidase positive) [facility] Medical History (Updated 01/18/23 @ 18:[address] Gabriele Blue MD) Bilateral pulmonary infiltrates on chest x-ray Blood clotting factor deficiency disorder Chronic kidney disease Chronic respiratory failure Current use of alf anticoagulation Essential (primary) hypertension Gastric ulcer Hiatal hernia History of pulmonary embolus (PE) LV non-compaction cardiomyopathy Multifocal pneumonia Nonischemic cardiomyopathy Obesity Obstructive sleep apnea Pulmonary fibrosis Type 2 diabetes mellitus Home Medications telmisartan 80 mg tablet 80 mg PO DAILY blood pressure 11/03/19 [History Last Taken 01/17/23] amlodipine 5 mg tablet 5 mg PO DAILY #90 tabs 05/26/22 [Rx Last Taken 01/17/23] dapagliflozin 10 mg tablet (Farxiga) 10 mg PO DAILY diabetes 05/26/22 [History Last Taken 01/17/23] insulin degludec 100 unit/mL (3 mL) subcutaneous pen (Tresiba FlexTouch U-100 insulin) 16 unit subcut QHS diabetes 05/26/22 [History Last Taken 01/17/23] metoprolol succinate 50 mg tablet,extended release 24 hr (Toprol XL) 50 mg PO DAILY #90 tabs 05/26/22 [Rx Last Taken 01/17/23] rivaroxaban 10 mg tablet (Xarelto) 10 mg PO DAILY blood thinner 05/26/22 [History Last Taken 01/17/23] dextromethorphan-guaifenesin 30 mg-600 mg tablet extended [id number] hr (Mucinex DM) 2 tab PO BID 7 days #28 tabs 12/04/22 [Rx Last Taken 01/17/23] furosemide 40 mg tablet 40 mg PO BIDLX 30 days #60 tabs 12/04/22 [Rx Last Taken 01/17/23] insulin lispro 100 unit/mL subcutaneous pen (Humalog KwikPen (U-100) Insulin) 12 unit (0.12 mL) subcut TIDCM #15 mL 12/04/22 [Rx Last Taken 01/17/23] ipratropium 0.5 mg-albuterol 3 mg (2.5 mg base)/3 mL nebulization soln 3 ml inhalation Q4H PRN shortness of breath or wheezing #180 mL 12/04/22 [Rx Last Taken 01/18/23 09:30] diphenhydramine 25 mg-acetaminophen 500 mg tablet (Tylenol PM Extra Strength) 1 tab PO QHS PRN Sleep 01/18/23 [History Last Taken 01/17/23] docusate sodium 100 mg capsule (Colace) 100 mg PO QHS CONSTIPATION 01/18/23 [History Last Taken 01/17/23] semaglutide 2 mg/dose (8 mg/3 mL) subcutaneous pen injector (Ozempic) 2 mg subcut TU DM 01/18/23 [History Last Taken 01/13/23] Allergy/AdvReac Type Severity Reaction Status Date / Time Penicillins Allergy Unknown unknown Verified 01/18/23 10:50 coffee (Coffea arabica) Allergy vomiting Verified 01/18/23 10:50 Family History Father , age 72 Myocardial infarction CAD (coronary artery disease) Mother , age 73 Cancer Brother , age 27 from AAA Abdominal aortic aneurysm rupture Sister , 54 Breast cancer Surgical History History of laminectomy (12/2021) History of Filemon fundoplication History of open reduction and internal fixation (ORIF) procedure History of right and left heart catheterization (09/1997) Hx of cholecystectomy Social History Smoking Status: Never smoker Physical Exam Narrative To follow Medical Records Data Medical records narrative: Echocardiogram 11/14/[address] [facility] showed global hypokinesis with impaired diastolic filling, ejection fraction of 40 to 45%, with minor regional variations.? Right side was normal. Today CT scan of the chest without contrast was reviewed (images and report) it showed apparent rapid progression of fibrosis compared to November study.? This could also be related to superimposed congestion in this patient who has been quite hypoxic COMPARISON: ? 11.30.22. FINDINGS: There are degenerative changes of the shoulders. There is no pneumothorax. There is no demonstrated pleural abnormality. Pulmonary fibrosis increased since previous exam. Healed sternal fracture. There are calcifications of the coronary arteries. Normal mediastinum.? Normal hilar regions. Normal pulmonary arteries. There is atherosclerotic calcification of the aortic arch with tortuosity and elongation of the aortic arch and descending thoracic aorta. There are multi-level degenerative changes of the thoracic spine. Stable multilevel compression deformities in the thoracic spine. There is a small hiatal hernia.? The gallbladder is surgically absent. CT/Chest without Contrast IMPRESSION: Pulmonary fibrosis increased since previous exam. Lab / Micro Data Result Diagrams: 01/18/23 10:57 01/18/23 10:57 Labs: Laboratory Results - last 24 hr 01/18/23 10:27: B-Natriuretic Peptide 22.2 01/18/23 10:57: WBC 10.8, RBC 5.25, Hgb 15.3, Hct 47.1, MCV 89.7, MCH 29.1, MCHC 32.5, RDW Std Deviation 48.1 H, RDW Coeff of [place] 14.6, Plt Count 233, MPV 9.4, Immature Gran % (Auto) 0.900, Neut % (Auto) 81.6 H, Lymph % (Auto) 8.9 L, [place] % (Auto) 6.0, Eos % (Auto) 1.8, Baso % (Auto) 0.8, Absolute Neuts (auto) 8.8 H, Absolute Lymphs (auto) 0.96, Nucleated RBC % 0 01/18/23 10:57: Sodium 136, Potassium 3.3 L, Chloride 99, Carbon Dioxide 29.0, Anion Gap 8, BUN 18, Creatinine 1.48 H, Estim Creat Clear Calc 47.27, Est GFR (MDRD) Af Amer 60, Est GFR (MDRD) Non-Af 50 L, BUN/Creatinine Ratio 12.2, Gluco se 212 H, Calcium 9.5, Troponin I High Sens < 3 L 01/18/23 13:30: Troponin I High Sens 4 01/18/23 13:30: C-React Prot Ext Range 27.50 H 01/18/23 14:15: Procalcitonin 0.17 H 01/18/23 16:01: POC Glucose 150 H Micro: Microbiology 01/18/23 10:57 Nasal Secretion SARS-CoV-2 & FLU Antigen (Rapid) - Final ABG Data ABG results: ABG 01/18/23 15:15 Specimen Type ART Sample Site L Radial pH 7.44 Bicarbonate Actual 26.2 H Total CO2 27 Base Excess 2 O2 Saturation 99 O2 % 40 ABG pCO2 38.5 ABG pO2 116 H Igor Test Positive Respiration Rate 12 O2 Delivery Device BiPAP Vent Mode BiLevel Radiology Impression Chest X-Ray 01/18/23 10:59 IMPRESSION: Bilateral edema or pneumonia and pleural effusions. Electronically Signed: Stepan Marino MD at 12:12 EDT , Chest CT 01/18/23 13:50 IMPRESSION: Pulmonary fibrosis increased since previous exam. There are no acute findings. Electronically Signed: Osmar Jaeger MD at 16:27 EDT ,
[2023-01-18] MEDS: Rivaroxaban 10 MG Tablet PO (18:15)
[2023-01-18] MEDS: Furosemide 20 MG/2 ML VIAL IV (18:23)
[2023-01-18 19:41] LABS: BNP,B-Type NATRIURETIC PEPTIDE 47.7 pg/mL (0-100)
[2023-01-18 19:45] LABS: Troponin-I HS 6 pg/mL (3.0-78.0)
[2023-01-18] MEDS: Ipratropium/Albuterol Sulfate 3 ML AMPUL.NEB INHALATION ×2 (19:55→23:40)
[2023-01-18] MEDS: 0.9% Saline Lock 10 ML Syringe IV (20:27)
[2023-01-18] MEDS: MethylPREDNISolone 125 MG/2 ML Vial 80 MG IV (20:27)
--- NOTE | 2023-01-18 20:44 | PCM.HOSP.N ---
Hospitalist Ted Spoke with Dr. Blue and she recommended transfer to higher level of care with rheum consult available for induction therapy. Called Bhavik, Ak , and Misbah miranda. Gen and Mahendra reported no inpatient rheum available. Spoke with [facility] transfer line and spoke with hospitalist Dr. Whatley who, given pt is on bipap intermittently, requested I speak with their ICU. I spoke with Dr. Biju Altamirano and he accepted to [facility] ICU. Dr. Altamirano asked that if he improves in the next 24-48 hrs to call and update them so he can be downgraded and go to a regular floor bed.
[2023-01-18 21:50] LABS: Bedside Glucose 218 mg/dL (74-106)
[2023-01-18] MEDS: Smz/Tmp Ds Tablet 1 TABLET PO (21:55)
[2023-01-18] MEDS: Insulin Glargine-YFGN 100 UNIT/ML Pen SC (21:56)
[2023-01-18] MEDS: guaiFENesin 1,200 MG Tablet 1200 MG PO (21:57)
--- NOTE | 2023-01-18 23:54 | CPS ---
Pt placed on his own home CPAP with 5 lpm O2 bleed in.
[2023-01-19] VITALS (12 sets, daily range): BP systolic 111–138; BP diastolic 69–84; PULSE 94–110; RESP 18–24; TEMP 36.6–36.9; O2SAT 93–98; BMI 32.7
[2023-01-19 06:21] LABS: Absolute Lymphocyte Count 0.36 X10^3/uL (0.83-4.51); Absolute Neutrophil Count 5.7 X10^3/uL (2.0-7.7); Basophil# 0.02 X10^3/uL; Basophil% 0.3 % (0-1); Hematocrit 43.9 % (40-54); Hemoglobin 14.6 g/dL (13.0-16.5); Lymphocyte # 0.36 X10^3/ul (0.83-4.51); Lymphocyte % 5.8 % (19-41); Mean Corp Hgb Conc 33.3 g/dL (32-36); Mean Corpuscular Volume 90.3 fL (80-94); Mean Platelet Vol. 9.5 fl (6.2-12.0); Monocyte# 0.05 X10^3/uL; Monocyte% 0.8 % (0-10); NRBC Flagged by Analyzer 0 % (0-5); Neutrophil # 5.71 X10^3/uL (2.7-7.7); POSITIVE DIFFERENTIAL YES; Platelet Count 193 K/mm3 (150-450); RBC Distribution Width CV 14.5 % (11.6-14.6); RBC Distribution Width SD 48.4 fl (35.1-43.9); Red Blood Count 4.86 M/mm3 (4.6-6.2); White Blood Count 6.2 K/mm3 (4.4-11.0)
[2023-01-19] MEDS: Insulin Lispro 100 UNIT/ML INSULN.PEN SC ×4 (06:32→21:02)
[2023-01-19] MEDS: MethylPREDNISolone 125 MG/2 ML Vial 80 MG IV ×3 (06:32→22:09)
[2023-01-19] MEDS: 0.9% Saline Lock 10 ML Syringe IV ×2 (06:32→22:11)
[2023-01-19 06:33] LABS: Differential Indicated SCAN CRITERIA MET
[2023-01-19 06:49] LABS: ALB/GLOB Ratio 0.6 RATIO (0.9-2.4); AST(SGOT) 23 U/L (15-37); Alanine Aminotransfer ALT/SGPT 15 U/L (16-61); Albumin, Serum 2.7 g/dL (3.2-5.0); Alkaline Phosphatase 106 U/L (45-117); Anion Gap 7 (5-15); BUN 23 mg/dL (7-18); BUN/Creat Ratio 16.1 RATIO (10-20); Calcium,Total 8.7 mg/dL (8.5-10.1); Chloride 102 mmol/L (98-107); Creatinine, Serum 1.43 mg/dL (0.70-1.30); EST Glomerular Filtration Rate 52 mL/min (>60); Est Glom Filt Rate - Afr Amer 63 mL/min (>60); Estimated Creatinine Clearance 48.92 ml/min; Globulin 4.2 g/dL (2.2-4.2); Glucose 255 mg/dL (74-106); Potassium 4.3 mmol/L (3.5-5.1); Protein, Total 6.9 g/dL (6.4-8.2); Sodium Level 133 mmol/L (136-145); Thyroid Stim Hormone (TSH) 1.06 uIU/mL (0.358-3.74)
[2023-01-19 07:00] LABS: Bedside Glucose 256 mg/dL (74-106)
[2023-01-19] MEDS: Ipratropium/Albuterol Sulfate 3 ML AMPUL.NEB INHALATION ×4 (07:14→19:31)
--- NOTE | 2023-01-19 08:32 | CPS ---
pt is unable to do I.S. Starts a coughing fit. Willing and able to do pep device.
[2023-01-19] MEDS: guaiFENesin 1,200 MG Tablet 1200 MG PO ×2 (09:15→21:04)
[2023-01-19] MEDS: Smz/Tmp Ds Tablet 1 TABLET PO ×2 (09:15→16:49)
[2023-01-19] MEDS: Furosemide 20 MG/2 ML VIAL IV ×2 (09:16→16:46)
[2023-01-19] MEDS: Metoprolol(XL)Succ 25 MG Tablet PO (09:17)
[2023-01-19 11:26] LABS: Bedside Glucose 324 mg/dL (74-106)
--- NOTE | 2023-01-19 15:14 | PN_ITS ---
Subjective Subjective Patient seen and examined. He had no active complaints and had an uneventful night. He still remains short of breath and is on 5L of oxygen. He is coughing, but is not expectorating much. he denies any fever, chills, nausea, vomiting or any other symptoms. Review of systems is otherwise negative. Objective Data Objective Data Vital Signs: Vital Signs Temp Pulse Resp BP Pulse Ox O2 Del Method O2 Flow Rate 97.9 F 108 H 19 H 113/84 H 95 Nasal Cannula 5 01/19/23 09:11 01/19/23 11:05 01/19/23 11:05 01/19/23 09:11 01/19/23 09:11 01/19/23 13:34 01/19/23 13:34 FiO2 91 01/19/23 13:34 Oxygen Flow Rate (L/min) 5 Oxygen Delivery Method Nasal Cannula Weight: 228 lb 2.855 oz Body Mass Index (BMI) 32.7 Intake & Output: Intake and Output for Last 24 Hours 01/17/23 01/18/23 01/19/23 23:59 23:59 23:59 Intake Total 710 / 710 Output Total 300 / 300 Balance 710 / 710 -300 / -300 Lab / Micro Data Result Diagrams: 01/19/23 05:12 01/19/23 05:12 Labs: Laboratory Results - last 24 hr 01/18/23 13:30: C-React Prot Ext Range 27.50 H 01/18/23 16:01: POC Glucose 150 H 01/18/23 19:00: Troponin I High Sens 6 01/18/23 19:00: B-Natriuretic Peptide 47.7 01/18/23 21:32: POC Glucose 218 H 01/19/23 05:12: WBC 6.2, RBC 4.86, Hgb 14.6, Hct 43.9, MCV 90.3, MCH 30.0, MCHC 33.3, RDW Std Deviation 48.4 H, RDW Coeff of Clay 14.5, Plt Count 193, MPV 9.5, Immature Gran % (Auto) 1.100 H, Neut % (Auto) 92.0 H, Lymph % (Auto) 5.8 L, [place] % (Auto) 0.8, Eos % (Auto) 0.0, Baso % (Auto) 0.3, Absolute Neuts (auto) 5.7, Absolute Lymphs (auto) 0.36 L, Nucleated RBC % 0 01/19/23 05:12: Sodium 133 L, Potassium 4.3, Chloride 102, Carbon Dioxide 24.0, Anion Gap 7, BUN 23 H, Creatinine 1.43 H, Estim Creat Clear Calc 48.92, Est GFR (MDRD) Af Amer 63, Est GFR (MDRD) Non-Af 52 L, BUN/Creatinine Ratio 16.1, Glucose 255 H, Calcium 8.7, Total Bilirubin 0.60, AST 23, ALT 15 L, Alkaline Phosphatase 106, Total Protein 6.9, Albumin 2.7 L, Globulin 4.2, Albumin/Globulin Ratio 0.6 L, TSH 1.06 01/19/23 06:30: POC Glucose 256 H 01/19/23 11:00: POC Glucose 324 H Micro: Microbiology 01/18/23 16:30 Mucosa - Nasopharyngeal Respiratory Panel (PCR) - Final Human [place] 01/18/23 18:25 Sputum, Expectorated/Coughed Gram Stain - Final 01/18/23 18:25 Sputum, Expectorated/Coughed Respiratory Culture - Prelimina ry Appears to be normal respiratory collin. Further studies to follow. 01/19/23 08:46 Urine, Clean Catch Legionella Antigen - Final 01/19/23 08:46 Urine, Clean Catch Streptococcus pneumoniae Antigen (M - Final 01/18/23 10:57 Nasal Secretion SARS-CoV-2 & FLU Antigen (Rapid) - Final ABG Data ABG results: ABG 01/18/23 15:15 Specimen Type ART Sample Site L Radial pH 7.44 Bicarbonate Actual 26.2 H Total CO2 27 Base Excess 2 O2 Saturation 99 O2 % 40 ABG pCO2 38.5 ABG pO2 116 H Igor Test Positive Respiration Rate 12 O2 Delivery Device BiPAP Vent Mode BiLevel Radiography Diagnostic Testing: Radiology Impression Chest CT 01/18/23 13:50 IMPRESSION: Pulmonary fibrosis increased since previous exam. There are no acute findings. Electronically Signed: Osmar Jaeger MD at 16:27 EDT , Echocardiogram 01/18/23 14:45 Interpretation Summary The estimated ejection fraction is 55 %. Aortic sclerosis, no stenosis. Ordering Physician: Patti Turner Referring Physician: LUIS FELIPE RALPH Performed By: Betsy Olvera RCS Physical Exam Const alert, oriented x3 and no apparent distress HEENT normocephalic, head/scalp atraumatic and moist oral mucous membranes Eyes PERRL and EOMs intact bilaterally Neck no lymphadenopathy and supple Lymph Lymphatic: no lymphadenopathy noted and no lymphedema noted Resp Resp Narrative: mildly diminished breath sounds bibasally, no wheezes or crackles. on 5L of oxygen Cardio regular rate, regular rhythm, S1 normal heart sound, S2 normal heart sound and no murmurs GI normal to inspection, nondistended, normoactive bowel sounds, soft to palpation and non-tender Extremity normal capillary refill, no clubbing, cyanosis or edema and no calf tenderness Skin General Skin Exam: no breakdown Neuro CN's II-XII intact bilaterally, no focal motor deficits, no sensory deficits noted and deep tendon reflexes 2+ bilaterally Psych thought process normal and cooperative Appearance: appropriate Assessment & Plan Assessment/Plan (1) Granulomatosis with polyangiitis: (2) Abnormal ANCA (antineutrophil cytoplasmic antibody): (3) Chronic respiratory failure with hypoxia, on home O2 therapy: PLAN: Plan #Hypoxia in the setting of chronic respiratory failure due to granulomatosis with polyangiitis and pulmonary fibrosis * on 5L of oxygen today. usually wears 5L at rest at home, 4L at night and 6-8L with exertion. * CXR in the ED showd bilateral edema/pneumonia and pleural effusions * pulmonology on board and recommended transfer to tertiary center for induction treatment for gramulomatosis with polyangiitis as this is likely causing his worsening shortness of breath * on IV solumedrol * had PFTs on 12/30/2022 which showed irreversible severe restrictive ventilatory defect with symmetric reduction in diffusion capacity. * titrate oxygen to maintain sats>90% * #Granulomatosis with polyangiitis * C anca antibodies elevated at >1:640 * pending transfer to [facility] for induction therapy * Nonischemic cardiomyopathy * has EF of 40% with mild LV systolic dysfunction. * repeat 2D echo today showed EF of 55% with no regional wall motion abnormalities and no diastolic dysfunction * #Type 2 diabetes mellitus * on lantus. ISS. Accuchecks ACHS * #CKD stabe IIIB; at baseline. #History of DVT: on xarelto DVT prophylaxis: on xarelto Disposition: awaiting transfer Charges/Coding Visit Charges Inpatient E&M: 41954 Subs Hosp L2
[2023-01-19] MEDS: Rivaroxaban 10 MG Tablet PO (16:46)
[2023-01-19 17:05] LABS: Bedside Glucose 304 mg/dL (74-106)
[2023-01-19] MEDS: Insulin Glargine-YFGN 100 UNIT/ML Pen SC (21:03)
[2023-01-19 21:31] LABS: Bedside Glucose 275 mg/dL (74-106)
[2023-01-20] VITALS (13 sets, daily range): BP systolic 117–135; BP diastolic 74–87; PULSE 88–115; RESP 18–27; TEMP 36.5–37.4; O2SAT 92–97; BMI 32.2
--- NOTE | 2023-01-20 00:50 | EX.EMERGENCY ---
EMERGENCY DOCUMENTATION INITIATED: Date: 01/16/2023 Time: 1900 Initiated at beginning of Shift by Charge and Ladle Pourer
--- NOTE | 2023-01-20 02:49 | EX.EMERGENCY ---
EMERGENCY DOCUMENTATION INITIATED: Date: 01/16/2023 Time: 1900 Initiated by charge and team supervisor at beginning of shift
--- NOTE | 2023-01-20 03:39 | CPS ---
Pt has been wearing home cpap unit with o2 bleb in. pt tolerates it well with 4-5L o2 bled in. which he also does at home. No longer does he need hospital bipap.
[2023-01-20 04:50] LABS: Absolute Lymphocyte Count 0.52 X10^3/uL (0.83-4.51); Absolute Neutrophil Count 10.5 X10^3/uL (2.0-7.7); Basophil# 0.02 X10^3/uL; Basophil% 0.2 % (0-1); Hematocrit 41.8 % (40-54); Lymphocyte # 0.52 X10^3/ul (0.83-4.51); Lymphocyte % 4.6 % (19-41); Mean Corp Hgb Conc 33.5 g/dL (32-36); Mean Corpuscular Hgb 29.9 pg (27.0-32.0); Mean Corpuscular Volume 89.1 fL (80-94); Mean Platelet Vol. 9.8 fl (6.2-12.0); Monocyte# 0.27 X10^3/uL; Monocyte% 2.4 % (0-10); NRBC Flagged by Analyzer 0 % (0-5); Neutrophil # 10.45 X10^3/uL (2.7-7.7); Neutrophil % 92.1 % (47-70); POSITIVE DIFFERENTIAL YES; Platelet Count 213 K/mm3 (150-450); RBC Distribution Width CV 14.6 % (11.6-14.6); RBC Distribution Width SD 46.8 fl (35.1-43.9); Red Blood Count 4.69 M/mm3 (4.6-6.2); White Blood Count 11.3 K/mm3 (4.4-11.0)
[2023-01-20 04:54] LABS: Differential Indicated SCAN CRITERIA MET
[2023-01-20 05:16] LABS: Anion Gap 8 (5-15); BUN 32 mg/dL (7-18); BUN/Creat Ratio 19.6 RATIO (10-20); Calcium,Total 9.2 mg/dL (8.5-10.1); Chloride 100 mmol/L (98-107); Creatinine, Serum 1.63 mg/dL (0.70-1.30); EST Glomerular Filtration Rate 45 mL/min (>60); Est Glom Filt Rate - Afr Amer 54 mL/min (>60); Estimated Creatinine Clearance 42.92 ml/min; Glucose 243 mg/dL (74-106); Potassium 3.9 mmol/L (3.5-5.1); Sodium Level 133 mmol/L (136-145)
[2023-01-20] MEDS: MethylPREDNISolone 125 MG/2 ML Vial 80 MG IV ×3 (05:20→21:46)
[2023-01-20] MEDS: Insulin Lispro 100 UNIT/ML INSULN.PEN SC ×4 (06:17→21:47)
[2023-01-20 06:50] LABS: Bedside Glucose 276 mg/dL (74-106)
[2023-01-20] MEDS: Ipratropium/Albuterol Sulfate 3 ML AMPUL.NEB INHALATION ×4 (07:07→19:17)
[2023-01-20] MEDS: Smz/Tmp Ds Tablet 1 TABLET PO ×2 (08:19→17:33)
--- NOTE | 2023-01-20 08:52 | NURSING ---
I spoke to Virgie at [facility] transfer line and she stated pt is on the list however there are no beds at this time.
[2023-01-20] MEDS: Furosemide 20 MG/2 ML VIAL IV ×2 (09:27→18:24)
[2023-01-20] MEDS: 0.9% Saline Lock 10 ML Syringe IV ×4 (09:27→21:48)
[2023-01-20 11:20] LABS: Alpha Antitrypsin Serum 161 mg/dL (101-187); Immunoglobulin G 997 mg/dL (603-1613)
[2023-01-20 11:41] LABS: Bedside Glucose 391 mg/dL (74-106)
[2023-01-20] MEDS: Metoprolol(XL)Succ 25 MG Tablet PO (11:47)
--- NOTE | 2023-01-20 13:19 | PN_ITS ---
Subjective Subjective Patient seen and examined. He had no active complaints today. he was on BIPAP at time of review. Review of systems is otherwise negative. He is still awaiting transfer. Objective Data Objective Data Vital Signs: Vital Signs Temp Pulse Resp BP Pulse Ox O2 Del Method O2 Flow Rate 98.2 F 106 H 26 H 123/85 H 97 CPAP 5 01/20/23 13:13 01/20/23 13:13 01/20/23 13:13 01/20/23 13:13 01/20/23 13:13 01/20/23 13:13 01/20/23 13:13 FiO2 91 01/19/23 13:34 Oxygen Flow Rate (L/min) 5 Oxygen Delivery Method CPAP Weight: 224 lb 10.417 oz Body Mass Index (BMI) 32.2 Intake & Output: Intake and Output for Last 24 Hours 01/18/23 01/19/23 01/20/23 23:59 23:59 23:59 Intake Total 710 / 710 1000 / 1000 Output Total 1300 / 1300 Balance 710 / 710 -300 / -300 Lab / Micro Data Result Diagrams: 01/20/23 03:32 01/20/23 03:32 Labs: Laboratory Results - last 24 hr 01/18/23 19:00: Mvhqh-8-Vnhztcolwes 161 01/18/23 19:00: IgG 997 01/19/23 16:43: POC Glucose 304 H 01/19/23 21:01: POC Glucose 275 H 01/20/23 03:32: WBC 11.3 H, RBC 4.69, Hgb 14.0, Hct 41.8, MCV 89.1, MCH 29.9, MCHC 33.5, RDW Std Deviation 46.8 H, RDW Coeff of Clay 14.6, Plt Count 213, MPV 9.8, Immature Gran % (Auto) 0.700, Neut % (Auto) 92.1 H, Lymph % (Auto) 4.6 L, [place] % (Auto) 2.4, Eos % (Auto) 0.0, Baso % (Auto) 0.2, Absolute Neuts (auto) 10.5 H, Absolute Lymphs (auto) 0.52 L, Nucleated RBC % 0 01/20/23 03:32: Sodium 133 L, Potassium 3.9, Chloride 100, Carbon Dioxide 25.0, Anion Gap 8, BUN 32 H, Creatinine 1.63 H, Estim Creat Clear Calc 42.92, Est GFR (MDRD) Af Amer 54 L, Est GFR (MDRD) Non-Af 45 L, BUN/Creatinine Ratio 19.6, Glucose 243 H, Calcium 9.2 01/20/23 06:15: POC Glucose 276 H 01/20/23 11:19: POC Glucose 391 H Micro: Microbiology 01/18/23 14:55 Blood Culture (Wb) - No Site/Description Given Blood Culture - Preliminary No growth in 48 hours. 01/18/23 14:15 Blood Culture (Wb) - Anticubital Right Blood Culture - Preliminary No growth in 48 hours. 01/18/23 16:30 Mucosa - Nasopharyngeal Respiratory Panel (PCR) - Final Human [place] 01/18/23 18:25 Sputum, Expectorated/Coughed Gram Stain - Final 01/18/23 18:25 Sputum, Expectorated/Coughed Respiratory Culture - Preliminary Appears to be normal respiratory collin. Further studies to follow. 01/19/23 08:46 Urine, Clean Catch Legionella Antigen - Final 01/19/23 08:46 Urine, Clean Catch Streptococcus pneumoniae Antigen (M - Final 01/18/23 10:57 Nasal Secretion SARS-CoV-2 & FLU Antigen (Rapid) - Final Radiography Diagnostic Testing: Radiology Impression Echocardiogram 01/18/23 14:45 Interpretation Summary The estimated ejection fraction is 55 %. Aortic sclerosis, no stenosis. Ordering Physician: Patti Turner Referring Physician: LUIS FELIPE RALPH Performed By: Betsy Olvera RCS Physical Exam Const alert, oriented x3 and no apparent distress HEENT normocephalic, head/scalp atraumatic and moist oral mucous membranes Eyes PERRL and EOMs intact bilaterally Neck no lymphadenopathy and supple Lymph Lymphatic: no lymphadenopathy noted and no lymphedema noted Resp Resp Narrative: mildly diminished breath sounds bibasally, no wheezes or crackles. on 5L of oxygen via CPAP Cardio regular rate, regular rhythm, S1 normal heart sound, S2 normal heart sound and no murmurs GI normal to inspection, nondistended, normoactive bowel sounds, soft to palpation and non-tender Extremity normal capillary refill, no clubbing, cyanosis or edema and no calf tenderness Skin General Skin Exam: no breakdown Neuro CN's II-XII intact bilaterally, no focal motor deficits, no sensory deficits noted and deep tendon reflexes 2+ bilaterally Psych thought process normal and cooperative Appearance: appropriate Assessment & Plan Assessment/Plan (1) Granulomatosis with polyangiitis: (2) Abnormal ANCA (antineutrophil cytoplasmic antibody): (3) Chronic respiratory failure with hypoxia, on home O2 therapy: PLAN: Plan #Hypoxia in the setting of chronic respiratory failure due to granulomatosis with polyangiitis and pulmonary fibrosis * on 5L of oxygen today. usually wears 5L at rest at home, 4L at night and 6-8L with exertion. * CXR in the ED showd bilateral edema/pneumonia and pleural effusions * pulmonology on board and recommended transfer to tertiary center for induction treatment for gramulomatosis with polyangiitis as this is likely causing his worsening shortness of breath * on IV solumedrol * had PFTs on 12/30/2022 which showed irreversible severe restrictive ventilatory defect with symmetric reduction in diffusion capacity. * titrate oxygen to maintain sats>90% * #Granulomatosis with polyangiitis * C anca antibodies elevated at >1:640 * pending transfer to [facility] for induction therapy * Nonischemic cardiomyopathy * has EF of 40% with mild LV systolic dysfunction. * repeat 2D echo during this admission showed EF of 55% with no regional wall motion abnormalities and no diastolic dysfunction * #Type 2 diabetes mellitus * on lantus. ISS. Accuchecks ACHS * #CKD stabe IIIB; at baseline. #History of DVT: on xarelto DVT prophylaxis: on xarelto Disposition: awaiting transfer to [facility] for induction therapy for granulomatosis with polyangiitis Charges/Coding Visit Charges Inpatient E&M: 17194 Subs Hosp L2
--- NOTE | 2023-01-20 13:34 | NURSING ---
Recieved call from [facility] transfer nurse for updated vitals and status. Nurse states will be at least 2 days before they anticipate open bed available for transfer.
--- NOTE | 2023-01-20 13:42 | CHAPLAIN ---
Type of Pastoral Visit _x__ Initial Visit ___ Follow-up Visit ___ On-call Visit ___ General Patient Visit ___ Spiritual Assessment ___ Family Conference ___ Bereavement ___ Rapid Response ___ Code Blue ___ Other (describe below) Pastoral Care Referral From _x__ Patient ___ Family ___ Nurse ___ Physician ___ Terminal Gauger Supervisor ___ Foreign Trade Teacher ___ Other (describe below) Sacrament/Intervention _x__ Active listening ___ Anointing ___ Catholic ___ Bereavement ___ Communion ___ Yamilet exploration ___ ___ Life review _x__ Prayer ___ Reconciliation ___ Sacrament of Sick _x__ Supportive presence ___ Wedding ___ Other (describe below) Pastoral Comments patient is welcoming and expressive of his concern that he is not able to get a bed in a larger hospital for further treatment and that his pain/discomfort/inability to breathe well is weighing on him emotionally; pt states do I put more money into the leaky roof or just let it go; spouse and son are in the room and giving presence and support; spouse speaks of letting Someone else make the decision and not me; pt is clear about not wanting to prolong life if he is not going to get better anyway; pt wants prayer support and welcomes presence now and in the future
[2023-01-20] MEDS: guaiFENesin 1,200 MG Tablet 1200 MG PO ×2 (14:57→21:47)
[2023-01-20 17:00] LABS: Bedside Glucose 290 mg/dL (74-106)
[2023-01-20] MEDS: Rivaroxaban 10 MG Tablet PO (17:33)
[2023-01-20] MEDS: Insulin Glargine-YFGN 100 UNIT/ML Pen SC (21:47)
[2023-01-20 22:15] LABS: Bedside Glucose 345 mg/dL (74-106)
[2023-01-21] VITALS (13 sets, daily range): BP systolic 132–142; BP diastolic 76–98; PULSE 90–107; RESP 16–22; TEMP 36.7–36.9; O2SAT 94–98; BMI 32.7
[2023-01-21] MEDS: Ipratropium/Albuterol Sulfate 3 ML AMPUL.NEB INHALATION ×5 (00:58→19:42)
[2023-01-21 05:19] LABS: Absolute Lymphocyte Count 0.42 X10^3/uL (0.83-4.51); Absolute Neutrophil Count 11.9 X10^3/uL (2.0-7.7); Basophil# 0.01 X10^3/uL; Basophil% 0.1 % (0-1); Hematocrit 40.4 % (40-54); Hemoglobin 13.4 g/dL (13.0-16.5); Lymphocyte # 0.42 X10^3/ul (0.83-4.51); Lymphocyte % 3.3 % (19-41); Mean Corp Hgb Conc 33.2 g/dL (32-36); Mean Corpuscular Volume 90.6 fL (80-94); Mean Platelet Vol. 9.6 fl (6.2-12.0); Monocyte# 0.22 X10^3/uL; Monocyte% 1.7 % (0-10); NRBC Flagged by Analyzer 0 % (0-5); Neutrophil # 11.88 X10^3/uL (2.7-7.7); Neutrophil % 94.3 % (47-70); POSITIVE DIFFERENTIAL YES; Platelet Count 214 K/mm3 (150-450); RBC Distribution Width CV 14.6 % (11.6-14.6); RBC Distribution Width SD 48.9 fl (35.1-43.9); Red Blood Count 4.46 M/mm3 (4.6-6.2); White Blood Count 12.6 K/mm3 (4.4-11.0)
[2023-01-21 05:24] LABS: Differential Indicated SCAN CRITERIA MET
[2023-01-21 05:36] LABS: Anion Gap 7 (5-15); BUN 39 mg/dL (7-18); BUN/Creat Ratio 21.8 RATIO (10-20); Calcium,Total 8.8 mg/dL (8.5-10.1); Chloride 101 mmol/L (98-107); Creatinine, Serum 1.79 mg/dL (0.70-1.30); EST Glomerular Filtration Rate 40 mL/min (>60); Est Glom Filt Rate - Afr Amer 48 mL/min (>60); Estimated Creatinine Clearance 39.08 ml/min; Glucose 302 mg/dL (74-106); Potassium 3.7 mmol/L (3.5-5.1); Sodium Level 134 mmol/L (136-145)
[2023-01-21] MEDS: 0.9% Saline Lock 10 ML Syringe IV ×5 (06:17→20:03)
[2023-01-21] MEDS: MethylPREDNISolone 125 MG/2 ML Vial 80 MG IV ×2 (06:17→14:19)
[2023-01-21] MEDS: Insulin Lispro 100 UNIT/ML INSULN.PEN SC ×3 (06:22→16:15)
--- NOTE | 2023-01-21 06:51 | NURSING ---
Recieved call from [facility] transfer nurse for updated vitals and status.
[2023-01-21 06:55] LABS: Bedside Glucose 323 mg/dL (74-106)
[2023-01-21 09:39] LABS: Anti-Glomerular Basement Memb < 0.2 units (0.0-0.9)
--- NOTE | 2023-01-21 10:13 | CASEMGMT ---
Tertiary facilities in-network with patient's insurance: [facility], [facility], [facility], , [facility], [facility], [facility]
[2023-01-21] MEDS: Smz/Tmp Ds Tablet 1 TABLET PO ×2 (10:28→18:12)
[2023-01-21] MEDS: guaiFENesin 1,200 MG Tablet 1200 MG PO (10:28)
[2023-01-21] MEDS: Furosemide 20 MG/2 ML VIAL IV ×2 (10:28→18:12)
[2023-01-21] MEDS: Metoprolol(XL)Succ 25 MG Tablet PO (10:29)
--- NOTE | 2023-01-21 13:40 | PN_ITS ---
Subjective Subjective Patient seen and examined. He says his breathing remains the same and it hasnt worsened. HE denied any chest pain, palpitations, dizziness, nausea, vomiting or any other symptoms. Review of systems is otherwise negative. He is awaiting transfer to a tertiary center Objective Data Objective Data Vital Signs: Vital Signs Temp Pulse Resp BP Pulse Ox O2 Del Method O2 Flow Rate 98.1 F 107 H 19 H 138/86 H 96 Nasal Cannula 8 01/21/23 09:35 01/21/23 11:35 01/21/23 11:35 01/21/23 10:29 01/21/23 09:35 01/21/23 10:15 01/21/23 10:15 FiO2 91 01/19/23 13:34 Oxygen Flow Rate (L/min) 8 Oxygen Delivery Method Nasal Cannula Weight: 228 lb 2.855 oz Body Mass Index (BMI) 32.7 Intake & Output: Intake and Output for Last 24 Hours 01/19/23 01/20/23 01/21/23 23:59 23:59 23:59 Intake Total 1000 / 1000 Output Total 1300 / 1300 300 / 300 400 / 400 Balance -300 / -300 -300 / -300 -400 / -400 Lab / Micro Data Result Diagrams: 01/21/23 03:43 01/21/23 03:43 Labs: Laboratory Results - last 24 hr 01/18/23 19:00: Glomerular Base Memb Ab < 0.2 01/20/23 16:21: POC Glucose 290 H 01/20/23 21:44: POC Glucose 345 H 01/21/23 03:43: WBC 12.6 H, RBC 4.46 L, Hgb 13.4, Hct 40.4, MCV 90.6, MCH 30.0, MCHC 33.2, RDW Std Deviation 48.9 H, RDW Coeff of Clay 14.6, Plt Count 214, MPV 9.6, Immature Gran % (Auto) 0.600, Neut % (Auto) 94.3 H, Lymph % (Auto) 3.3 L, [place] % (Auto) 1.7, Eos % (Auto) 0.0, Baso % (Auto) 0.1, Absolute Neuts (auto) 11.9 H, Absolute Lymphs (auto) 0.42 L, Nucleated RBC % 0 01/21/23 03:43: Sodium 134 L, Potassium 3.7, Chloride 101, Carbon Dioxide 26.0, Anion Gap 7, BUN 39 H, Creatinine 1.79 H, Estim Creat Clear Calc 39.08, Est GFR (MDRD) Af Amer 48 L, Est GFR (MDRD) Non-Af 40 L, BUN/Creatinine Ratio 21.8 H, Glucose 302 H, Calcium 8.8 01/21/23 06:21: POC Glucose 323 H Micro: Microbiology 01/18/23 18:25 Sputum, Expectorated/Coughed Gram Stain - Final 01/18/23 18:25 Sputum, Expectorated/Coughed Respiratory Culture - Final Presumptive C albicans 01/18/23 14:55 Blood Culture (Wb) - No Site/Description Given Blood Culture - Preliminary No growth in 48 hours. 01/18/23 14:15 Blood Culture (Wb) - Anticubital Right Blood Culture - Preliminary No growth in 48 hours. 01/18/23 16:30 Mucosa - Nasopharyngeal Respiratory Panel (PCR) - Final Human [place] 01/19/23 08:46 Urine, Clean Catch Legionella Antigen - Final 01/19/23 08:46 Urine, Clean Catch Streptococcus pneumoniae Antigen (M - Final 01/18/23 10:57 Nasal Secretion SARS-CoV-2 & FLU Antigen (Rapid) - Final Physical Exam Const alert, oriented x3 and no apparent distress General Appearance: cooperative HEENT normocephalic, head/scalp atraumatic and moist oral mucous membranes Eyes PERRL and EOMs intact bilaterally Neck no lymphadenopathy and supple Lymph Lymphatic: no lymphadenopathy noted and no lymphedema noted Resp Resp Narrative: mildly diminished breath sounds bibasally, no wheezes or crackles. on 8L of oxygen. Cardio regular rate, regular rhythm, S1 normal heart sound, S2 normal heart sound and no murmurs GI normal to inspection, nondistended, normoactive bowel sounds, soft to palpation and non-tender Extremity normal capillary refill, no clubbing, cyanosis or edema and no calf tenderness Skin General Skin Exam: no breakdown Neuro CN's II-XII intact bilaterally, no focal motor deficits, no sensory deficits noted and deep tendon reflexes 2+ bilaterally Psych thought process normal, cooperative and affect normal Appearance: appropriate Assessment & Plan Assessment/Plan (1) Granulomatosis with polyangiitis: (2) Abnormal ANCA (antineutrophil cytoplasmic antibody): (3) Chronic respiratory failure with hypoxia, on home O2 therapy: PLAN: Plan #Hypoxia in the setting of chronic respiratory failure due to granulomatosis with polyangiitis and pulmonary fibrosis * on 8L of oxygen today. usually wears 5L at rest at home, 4L at night and 6-8L with exertion. * CXR in the ED showd bilateral edema/pneumonia and pleural effusions * pulmonology on board and recommended transfer to tertiary center for induction treatment for gramulomatosis with polyangiitis as this is likely causing his worsening shortness of breath * on IV solumedrol * had PFTs on 12/30/2022 which showed irreversible severe restrictive ventilatory defect with symmetric reduction in diffusion capacity. * titrate oxygen to maintain sats>90% * sputum culture growing neftali albicans. Will start on fluconazole. * respiratory panel was positive for Human metapneumovirus * #Granulomatosis with polyangiitis * C anca antibodies elevated at >1:640 * pending transfer to [facility] for induction therapy * Nonischemic cardiomyopathy * has EF of 40% with mild LV systolic dysfunction. * repeat 2D echo during this admission showed EF of 55% with no regional wall motion abnormalities and no diastolic dysfunction * #Type 2 diabetes mellitus * on lantus. ISS. Accuchecks ACHS * #CKD stabe IIIB; at baseline. #History of DVT: on xarelto DVT prophylaxis: on xarelto Disposition: still awaiting transfer to [facility] for induction therapy for granulomatosis with polyangiitis. [facility] also contacted today Total time spent on evaluation and management of patient, reviewing chart and specialist notes, discussing plan with patient and his , discussion with nursing and ancillary staff as well as documentation: 47 mins Charges/Coding Visit Charges Inpatient E&M: 99813 Subs Hosp L3
[2023-01-21 14:40] LABS: Bedside Glucose 374 mg/dL (74-106)
--- NOTE | 2023-01-21 15:38 | DS.PCM_ITS ---
Providers Date of Admission: 01/18/23 Date of Discharge: 01/25/23 Primary Care Physician: Dr. 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 usually wears 5L at rest at home, 4L at night and 6-8L with exertion. * CXR in the ED showd bilateral edema/pneumonia and pleural effusions * pulmonology on board and recommended transfer to tertiary center for induction treatment for gramulomatosis with polyangiitis as this is likely causing his worsening shortness of breath * on IV solumedrol * had PFTs on 12/30/2022 which showed irreversible severe restrictive ventilatory defect with symmetric reduction in diffusion capacity. * titrate oxygen to maintain sats>90% * sputum culture growing neftali albicans. Will start on fluconazole. * respiratory panel was positive for Human metapneumovirus * #Granulomatosis with polyangiitis * C anca antibodies elevated at >1:640 * pending transfer to [facility] for induction therapy * Nonischemic cardiomyopathy * has EF of 40% with mild LV systolic dysfunction. * repeat 2D echo during this admission showed EF of 55% with no regional wall motion abnormalities and no diastolic dysfunction * #Type 2 diabetes mellitus * on lantus. ISS. Accuchecks ACHS * #CKD stabe IIIB; at baseline. #History of DVT: on xarelto DVT prophylaxis: on xarelto Disposition: still awaiting transfer to [facility] for induction therapy for granulomatosis with polyangiitis. [facility] also contacted today Total time spent on evaluation and management of patient, reviewing chart and specialist notes, discussing plan with patient and his , discussion with nursing and ancillary staff as well as documentation: 47 mins Medications at Discharge Home Medications telmisartan 80 mg tablet 80 mg PO DAILY blood pressure 11/03/19 amlodipine 5 mg tablet 5 mg PO DAILY #90 tabs 05/26/22 dapagliflozin 10 mg tablet (Farxiga) 10 mg PO DAILY diabetes 05/26/22 insulin degludec 100 unit/mL (3 mL) subcutaneous pen (Tresiba FlexTouch U-100 insulin) 16 unit subcut QHS diabetes 05/26/22 metoprolol succinate 50 mg tablet,extended release 24 hr (Toprol XL) 50 mg PO DAILY #90 tabs 05/26/22 rivaroxaban 10 mg tablet (Xarelto) 10 mg PO DAILY blood thinner 05/26/22 dextromethorphan-guaifenesin 30 mg-600 mg tablet extended viszici75 hr (Mucinex DM) 2 tab PO BID 7 days #28 tabs 12/04/22 furosemide 40 mg tablet 40 mg PO BIDLX 30 days #60 tabs 12/04/22 insulin lispro 100 unit/mL subcutaneous pen (Humalog KwikPen (U-100) Insulin) 12 unit (0.12 mL) subcut TIDCM #15 mL 12/04/22 ipratropium 0.5 mg-albuterol 3 mg (2.5 mg base)/3 mL nebulization soln 3 ml inhalation Q4H PRN shortness of breath or wheezing #180 mL 12/04/22 diphenhydramine 25 mg-acetaminophen 500 mg tablet (Tylenol PM Extra Strength) 1 tab PO QHS PRN Sleep 01/18/23 docusate sodium 100 mg capsule (Colace) 100 mg PO QHS CONSTIPATION 01/18/23 semaglutide 2 mg/dose (8 mg/3 mL) subcutaneous pen injector (Ozempic) 2 mg subcut TU DM 01/18/23 Hospital Course Operations None Procedures None Summary of Care Provided Minutes Spent on Discharge: 55 Hospital Course: Patient is a 72-year-old male with a past medical history as outlined which includes Yoel's granulomatosis and chronic hypoxic respiratory failure was admitted through the ED on 01/18/2023 with a complaint of increased cough and weakness. He felt he was getting more short of breath. Patient will 4 L of oxygen during the night and 5 during the day and required between 6 and 8 L of oxygen with ambulation but felt he had been getting more short of breath even on this. His cough had been worsening he had pleuritic chest pain. He had been supposed to follow-up with rheumatology on outpatient basis after his diagnosis of Yoel's granulomatosis but had not yet followed up with them. Chest x-ray on admission showed bilateral pulmonary edema or pneumonia and pleural effusion. He was admitted and managed for hypoxia in the setting of chronic respiratory failure. EKG shows sinus tachycardia and pulmonology was consulted. 2D echo showed EF of 55% with no regional wall motion abnormalities and no diastolic dysfunction. His c-ANCA antibodies had been noted to be markedly elevated at more than 1 and 614. Pulmonology reviewed patient and recommended transfer to tertiary care facility for induction treatment for his granulomatosis with polyangiitis as that was thought to be contributing to his worsening shortness of breath. Patient had to stay in [facility] for few days pending the transfer due to lack of bed availability. He finally got a bed and was transferred to [facility] on 01/21/2023. Patient was seen and examined on the day of discharge. His breathing was at baseline. He had no other complaints and review of systems otherwise negative. Labs and vitals reviewed. Physical Exam Const alert, oriented x3 and no apparent distress General Appearance: cooperative, comfortable and well kempt HEENT normocephalic, head/scalp atraumatic, hearing grossly normal bilaterally and moist oral mucous membranes Mouth: oral and palatal mucosa normal Eyes PERRL and EOMs intact bilaterally Neck no lymphadenopathy and supple Lymph Lymphatic: no lymphadenopathy noted and no lymphedema noted Resp Resp Narrative: mildly diminished breath sounds bibasally, no wheezes or crackles. on 8L of oxygen. Cardio regular rate, regular rhythm, S1 normal heart sound, S2 normal heart sound and no murmurs GI normal to inspection, nondistended, normoactive bowel sounds, soft to palpation and non-tender Extremity normal to inspection, full ROM, normal capillary refill, no clubbing, cyanosis or edema and no calf tenderness Skin no rashes or lesions noted General Skin Exam: no breakdown Neuro oriented x3, CN's II-XII intact bilaterally, moves all extremities, no focal motor deficits, no sensory deficits noted and deep tendon reflexes 2+ bilaterally Sensorium / Orientation: awake and alert Psych thought process normal, cooperative and affect normal Appearance: appropriate Weight / BMI Weight Weight: 228 lb 2.855 oz Body Mass Index (BMI) 32.7 ABG / Lab / Microbiology Data Result Diagrams: 01/21/23 03:43 01/21/23 03:43 Microbiology: Microbiology 01/18/23 14:55 Blood Culture (Wb) - No Site/Description Given Blood Culture - Final No growth in 5 days. 01/18/23 14:15 Blood Culture (Wb) - Anticubital Right Blood Culture - Final No growth in 5 days. 01/18/23 18:25 Sputum, Expectorated/Coughed Gram Stain - Final 01/18/23 18:25 Sputum, Expectorated/Coughed Respiratory Culture - Final Presumptive C albicans 01/18/23 16:30 Mucosa - Nasopharyngeal Respiratory Panel (PCR) - Final Human [place] 01/19/23 08:46 Urine, Clean Catch Legionella Antigen - Final 01/19/23 08:46 Urine, Clean Catch Streptococcus pneumoniae Antigen (M - Fin al 01/18/23 10:57 Nasal Secretion SARS-CoV-2 & FLU Antigen (Rapid) - Final D/C Instructions Discharge Diet: Low fat / Low cholesterol Discharge Activity: Return to Normal Activity Weight Bearing Status: Weight bearing as tolerated Meaningful Use Info Meaningful Use Diagnoses (Choose all that apply): None applicable Discharge Plan Admission Admit Date/Time: 01/18/23 13:32 Attending Provider: Carly Lo Primary Care Provider: Timothy Diana Consulting Providers: Gabriele Blue ; Patti Turner Discharge Orders/Prescriptions Prescriptions: No Action telmisartan 80 mg tablet 80 mg PO DAILY Xarelto 10 mg tablet 10 mg PO DAILY Farxiga 10 mg tablet 10 mg PO DAILY Tresiba FlexTouch U-100 100 unit/mL (3 mL) insulin pen 16 unit subcut QHS metoprolol succinate [Toprol XL] 50 mg tablet extended release 24 hr 50 mg PO DAILY Qty: 90 3RF amlodipine 5 mg tablet 5 mg PO DAILY Qty: 90 3RF furosemide 40 mg Tablet 40 mg PO BIDLX 30 Days Qty: 60 0RF Rx Instructions: Repeat BMP in 1 week and probably decrease to 40 mg once daily after 1 week Mucinex DM 30-600 mg Tablet Extended Release 12 Hr 2 tab PO BID 7 Days Qty: 28 0RF insulin lispro [Humalog KwikPen Insulin] 100 unit/mL insulin pen 12 unit subcut TIDCM Qty: 15 0RF ipratropium-albuterol 0.5 mg-3 mg(2.5 mg base)/3 mL solution for nebulization 3 ml inhalation Q4H PRN (Reason: shortness of breath or wheezing) Qty: 180 0RF Rx Instructions: ICD 10 CODE J47 Ozempic 2 mg/dose (8 mg/3 mL) pen injector 2 mg SUBCUT TU docusate sodium [Colace] 100 mg Capsule 100 mg PO QHS diphenhydramine-acetaminophen [Tylenol PM Extra Strength] 25-500 mg Tablet 1 tab PO QHS PRN (Reason: Sleep) Referrals / Follow Up: Timothy Diana MD [Primary Care Provider] - Disposition Disposition (needs filled in before D/C Order can be placed): Acute Care Hospital Charges/Coding Visit Charges Inpatient E&M: 20215 Disch Hosp >30min
[2023-01-21] MEDS: Rivaroxaban 10 MG Tablet PO (18:17)
[2023-01-21 19:35] LABS: Bedside Glucose 345 mg/dL (74-106)
--- NOTE | 2023-01-21 20:15 | NURSING ---
Transport at bedside states they need a dnr formed signed by the physician. messaged dr burnham to inform. States will get to it as soon as able.
--- NOTE | 2023-01-21 20:21 | NURSING ---
2015; Report called to Sanchez at [facility] for report. All questions answered.
--- NOTE | 2023-01-21 21:04 | NURSING ---
Called patients and informed of transfer.
== END 2023-01-21 21:07 | disposition short-term general hospital (02) | DRG 542 ==
LOC: ED 12:56 → PCU 14:02
PROVIDERS: Internal Medicine; Admitting Provider Internal Medicine; Emergency Provider Student in an Organized Health Care Education/Training Program; PCP Family Medicine; Visit Provider Student in an Organized Health Care Education/Training Program
DX: M31.30 Wegener's granulomatosis without renal involvement (principal); J18.9 Pneumonia, unspecified organism; I42.8 Other cardiomyopathies; D68.9 Coagulation defect, unspecified; J90 Pleural effusion, not elsewhere classified; J96.11 Chronic respiratory failure with hypoxia; N18.32 Chronic kidney disease, stage 3b; Z79.4 Long term (current) use of insulin; J84.10 Pulmonary fibrosis, unspecified; E11.22 Type 2 diabetes mellitus with diabetic chronic kidney disease; M30.0 Polyarteritis nodosa; G47.33 Obstructive sleep apnea (adult) (pediatric); I12.9 Hypertensive chronic kidney disease with stage 1 through stage 4 chronic kidney disease, or unspecified chronic kidney disease; R07.9 Chest pain, unspecified; Z57.2 Occupational exposure to dust; R53.81 Other malaise; Z80.3 Family history of malignant neoplasm of breast; Z66 Do not resuscitate; Z79.01 Long term (current) use of anticoagulants; Z99.81 Dependence on supplemental oxygen; B97.81 Human metapneumovirus as the cause of diseases classified elsewhere; R76.8 Other specified abnormal immunological findings in serum; Z86.718 Personal history of other venous thrombosis and embolism
CPT/HCPCS: 36415; 36600; 71045; 71250; 80048; 80053; 82103; 82784; 82803; 82962; 83520; 83880; 84145; 84443; 84484; 85025; 86140; 87040; 87070; 87205; 87428; 87449; 87633; 93005; 93306; 94002; 94640; 94668; 94762; 97162; 97166; 97530; 97535; 99252; 99285; A4216; G0463; J1940